=== PATIENT | female | born 1960 | race African-American/Black ===

== ENCOUNTER 2017-07-10 19:04 | Inpatient (IN) ==
[2017-07-10] MEDS ORDERED: FUROSEMIDE 40 MG/4 ML VIAL IV STA (19:41)
[2017-07-10 20:06] LABS: Basophils # 0.1 10*3/uL (0.0-0.2); Basophils % 0.8 % (0.0-0.8); Eosinophils # 0.1 10*3/uL (0.0-0.87); Eosinophils % 1.9 % (0.00-10.9); Hematocrit 21.6 VOL% (35.7-47.0); Hemoglobin 7.7 GM/DL (12.0-16.0); Immature Granulocytes % 0.2 %; Immature Granulocytes Absolute 0.01 #; Lymphocytes % 47.3 % (21.3-54.2); Mean Corpuscular HGB Conc 35.6 GM/DL (32-36); Mean Corpuscular Hemoglobin 29 PG (27-34); Mean Corpuscular Volume 81.2 FL (87-102); Monocytes # 0.6 10*3/uL (0.11-0.8); Monocytes % 9.9 % (1.7-12.7); NRBC # 0.02 10*3/uL; Neutrophils # 2.6 10*3/uL (1.4-7.4); Neutrophils % 39.9 % (38.7-73.9); Red Blood Count 2.66 MC/CUMM (3.8-5.5); Red Cell Distribution Width 21.9 % (9.3-17.3); White Blood Count 6.4 T/CUMM (4-12)
[2017-07-10 20:17] LABS: Platelet Count 86 T/CUMM (130-400)
[2017-07-10 20:21] LABS: Ammonia 54 UMOL/L (11-32)
[2017-07-10 20:23] LABS: Alanine Aminotransferase 44 U/L (13-56); Albumin 2.7 G/DL (3.4-5.0); Alkaline Phosphatase 163 U/L (45-117); Aspartate Amino Transferase 96 U/L (0-37); Blood Urea Nitrogen 19 MG/DL (7-18); Calcium 7.5 MG/DL (8.5-10.1); Glucose 80 MG/DL (74-106); Osmolality,Calculated 281.3 MOS/KG (273-304); Potassium 3.5 MMOL/L (3.5-5.1); Sodium 141 MMOL/L (136-145); Total Protein 6.8 G/DL (6.4-8.3); Troponin I Only < 0.015 NG/ML (0.00-0.045)
[2017-07-10 20:31] LABS: Anisocytosis 3+; Hypochromasia 2+; Macrocytosis 2+; Microcytosis 1+; Platelet Estimate Decreased; Polychromasia Few
[2017-07-10 20:32] LABS: Acanthocytes Few; Elliptocytes 1+; Ovalocytes 2+; Target Cells 3+
[2017-07-10] MEDS ORDERED: FUROSEMIDE 100 MG/10 ML VIAL ONE (20:54)
[2017-07-10] MEDS ORDERED: ALBUTEROL 2.5 MG/3 ML NEB RESP TX PRN (22:06)
[2017-07-10 22:27] LABS: % Iron Saturation 90.4 % (18-50)
[2017-07-10 23:14] LABS: PT Patient Result 20.7 SECS
[2017-07-10 23:38] LABS: Apearance,Urine Clear (Clear); Barbiturates Screen,Urine Negative (Negative); Benzodiazepines Screen,Urine Negative (Negative); Cannabinoid Screen,Urine Negative (Negative); Opiate Screen,Urine Negative (Negative); Phencyclidine Screen,Urine Negative (Negative); Urine Color Yellow (Yellow)
[2017-07-10 23:39] LABS: Bilirubin,Urine Negative (Negative); Glucose,Urine (UA) Negative (Negative); Ketones,Urine Negative (Negative); Nitrite,Urine Negative (Negative); Protein,Urine Negative; Urine Specific Gravity 1.005 (1.001-1.035)
[2017-07-10 23:40] LABS: Blood, Urine Trace mg/dL (Negative); Urine Urobilinogen 0.2 EU/DL (0.2-1.0)
[2017-07-10 23:41] LABS: Squamous Epithelial Cell,Urine Few /HPF (0-10)
[2017-07-11 05:59] LABS: Basophils # 0.1 10*3/uL (0.0-0.2); Basophils % 0.8 % (0.0-0.8); Eosinophils # 0.1 10*3/uL (0.0-0.87); Eosinophils % 2.2 % (0.00-10.9); Hematocrit 18.4 VOL% (35.7-47.0); Hemoglobin 6.8 GM/DL (12.0-16.0); Immature Granulocytes % 0.2 %; Immature Granulocytes Absolute 0.01 #; Lymphocytes # 3.2 10*3/uL (1.4-4.0); Lymphocytes % 54.1 % (21.3-54.2); Mean Corpuscular Hemoglobin 29 PG (27-34); Mean Corpuscular Volume 79.3 FL (87-102); Monocytes # 0.6 10*3/uL (0.11-0.8); Monocytes % 10.4 % (1.7-12.7); Neutrophils # 1.9 10*3/uL (1.4-7.4); Neutrophils % 32.3 % (38.7-73.9); Platelet Count 66 T/CUMM (130-400); Red Blood Count 2.32 MC/CUMM (3.8-5.5); Red Cell Distribution Width 21.8 % (9.3-17.3)
[2017-07-11 06:22] LABS: Albumin 2.4 G/DL (3.4-5.0); Bilirubin,Total 5.4 MG/DL (0.2-1.0); Calcium 7.9 MG/DL (8.5-10.1); Osmolality,Calculated 283.1 MOS/KG (273-304); Potassium 3.6 MMOL/L (3.5-5.1)
[2017-07-11 07:11] LABS: Eosinophils 2 % (0-10); Lymphocytes 38 % (20-55); Segmented Neutrophils 53 % (50-85); Total Cells Counted 100
[2017-07-11 07:12] LABS: Burr Cells Slight; Elliptocytes Few; Giant Platelets Few; Hypochromasia 1+; Platelet Estimate Decreased; Target Cells Few
[2017-07-11] MEDS ORDERED: LACTULOSE 160 GM/240 ML BOTTLE PO SCH (09:00)
[2017-07-11] MEDS ORDERED: SODIUM CHLORIDE 0.9% 1,000 ML IV PRN (09:23)
[2017-07-11] MEDS: BUMETANIDE 1 MG/4 ML VIAL IV SCH ×2 (13:39→20:51)
[2017-07-11] MEDS: hydrALAZINE 25 MG TABLET PO SCH ×3 (13:39→20:36)
[2017-07-11] MEDS: LACTULOSE 20 GM/30 ML UDCUP PO SCH ×3 (13:40→20:52)
[2017-07-11] MEDS: FOLIC ACID 1 MG TABLET PO SCH (13:40)
[2017-07-11] MEDS: FERROUS SULFATE 325 MG TABLET PO SCH (13:40)
[2017-07-11] MEDS: FUROSEMIDE 40 MG TABLET PO SCH (13:40)
[2017-07-11] MEDS: PANTOPRAZOLE 40 MG TABLET PO SCH ×2 (13:40→20:52)
[2017-07-11] MEDS: SPIRONOLACTONE 25 MG TABLET PO SCH (20:52)
[2017-07-11] MEDS ORDERED: SPIRONOLACTONE 25 MG TABLET PO SCH (21:00)
[2017-07-12 06:08] LABS: Basophils % 0.6 % (0.0-0.8); Eosinophils # 0.2 10*3/uL (0.0-0.87); Eosinophils % 2.4 % (0.00-10.9); Hematocrit 25.1 VOL% (35.7-47.0); Hemoglobin 8.9 GM/DL (12.0-16.0); Immature Granulocytes % 0.5 %; Immature Granulocytes Absolute 0.03 #; Lymphocytes # 3.5 10*3/uL (1.4-4.0); Lymphocytes % 52.8 % (21.3-54.2); Mean Corpuscular HGB Conc 35.5 GM/DL (32-36); Mean Corpuscular Hemoglobin 29 PG (27-34); Mean Corpuscular Volume 80.4 FL (87-102); Monocytes # 0.6 10*3/uL (0.11-0.8); Monocytes % 9.1 % (1.7-12.7); Neutrophils # 2.3 10*3/uL (1.4-7.4); Neutrophils % 34.6 % (38.7-73.9); Red Blood Count 3.12 MC/CUMM (3.8-5.5); Red Cell Distribution Width 20.7 % (9.3-17.3); White Blood Count 6.6 T/CUMM (4-12)
[2017-07-12 06:16] LABS: Platelet Count 62 T/CUMM (130-400)
[2017-07-12 06:31] LABS: Eosinophils 2 % (0-10); Hypochromasia 1+; Lymphocytes 56 % (20-55); Microcytosis 1+; Segmented Neutrophils 34 % (50-85); Total Cells Counted 100
[2017-07-12 06:32] LABS: Acanthocytes Few; Ovalocytes Few; Target Cells 1+
[2017-07-12 06:33] LABS: Platelet Estimate Decreased
[2017-07-12 06:41] LABS: Potassium 3.3 MMOL/L (3.5-5.1)
[2017-07-12] MEDS: FOLIC ACID 1 MG TABLET PO SCH (09:47)
[2017-07-12] MEDS: FERROUS SULFATE 325 MG TABLET PO SCH (09:47)
[2017-07-12] MEDS: LACTULOSE 20 GM/30 ML UDCUP PO SCH ×3 (09:47→22:31)
[2017-07-12] MEDS: FUROSEMIDE 40 MG TABLET PO SCH (09:47)
[2017-07-12] MEDS: PANTOPRAZOLE 40 MG TABLET PO SCH ×2 (09:47→22:31)
[2017-07-12] MEDS: hydrALAZINE 25 MG TABLET PO SCH ×3 (09:47→22:31)
[2017-07-12] MEDS: BUMETANIDE 1 MG/4 ML VIAL IV SCH ×2 (09:48→22:32)
[2017-07-12] MEDS: SPIRONOLACTONE 25 MG TABLET PO SCH ×2 (10:14→22:31)
[2017-07-12] MEDS ORDERED: POTASSIUM CHLORIDE 20 MEQ TABLET PO ONE (11:00)
[2017-07-13 05:56] LABS: Basophils # 0.1 10*3/uL (0.0-0.2); Basophils % 0.8 % (0.0-0.8); Eosinophils # 0.2 10*3/uL (0.0-0.87); Eosinophils % 2.2 % (0.00-10.9); Hematocrit 23.6 VOL% (35.7-47.0); Hemoglobin 8.7 GM/DL (12.0-16.0); Immature Granulocytes % 0.4 %; Immature Granulocytes Absolute 0.03 #; Lymphocytes # 3.4 10*3/uL (1.4-4.0); Mean Corpuscular HGB Conc 36.9 GM/DL (32-36); Mean Corpuscular Hemoglobin 29 PG (27-34); Mean Corpuscular Volume 79.7 FL (87-102); Monocytes # 0.7 10*3/uL (0.11-0.8); Monocytes % 9.8 % (1.7-12.7); Neutrophils % 40.8 % (38.7-73.9); Red Blood Count 2.96 MC/CUMM (3.8-5.5); Red Cell Distribution Width 20.4 % (9.3-17.3); White Blood Count 7.4 T/CUMM (4-12)
[2017-07-13 05:57] LABS: Platelet Count 58 T/CUMM (130-400)
[2017-07-13 06:12] LABS: Target Cells 1+
[2017-07-13 06:13] LABS: Acanthocytes Few; Anisocytosis 1+; Hypochromasia 1+; Microcytosis 1+; Platelet Estimate Decreased; Spherocytes Slight
[2017-07-13 06:14] LABS: Ovalocytes Slight; Tear Drop Cells Slight
[2017-07-13 06:26] LABS: Albumin 2.2 G/DL (3.4-5.0); Bilirubin,Total 4.6 MG/DL (0.2-1.0); Calcium 7.9 MG/DL (8.5-10.1); Osmolality,Calculated 280.3 MOS/KG (273-304); Potassium 3.3 MMOL/L (3.5-5.1); Total Protein 6.5 G/DL (6.4-8.3)
[2017-07-13] MEDS: FERROUS SULFATE 325 MG TABLET PO SCH (09:00)
[2017-07-13] MEDS: LACTULOSE 20 GM/30 ML UDCUP PO SCH ×3 (09:00→21:59)
[2017-07-13] MEDS: BUMETANIDE 1 MG/4 ML VIAL IV SCH ×2 (09:01→21:59)
[2017-07-13] MEDS: PANTOPRAZOLE 40 MG TABLET PO SCH ×2 (09:01→21:59)
[2017-07-13] MEDS: FUROSEMIDE 40 MG TABLET PO SCH (09:01)
[2017-07-13] MEDS: SPIRONOLACTONE 25 MG TABLET PO SCH ×2 (09:01→21:59)
[2017-07-13] MEDS: FOLIC ACID 1 MG TABLET PO SCH (09:01)
[2017-07-13] MEDS: hydrALAZINE 25 MG TABLET PO SCH ×3 (09:01→21:59)
[2017-07-14 06:28] LABS: Basophils % 0.6 % (0.0-0.8); Eosinophils # 0.2 10*3/uL (0.0-0.87); Eosinophils % 2.6 % (0.00-10.9); Hematocrit 23.7 VOL% (35.7-47.0); Hemoglobin 8.8 GM/DL (12.0-16.0); Immature Granulocytes % 0.2 %; Immature Granulocytes Absolute 0.01 #; Lymphocytes # 3.4 10*3/uL (1.4-4.0); Lymphocytes % 54.2 % (21.3-54.2); Mean Corpuscular HGB Conc 37.1 GM/DL (32-36); Mean Corpuscular Hemoglobin 29 PG (27-34); Mean Corpuscular Volume 78.5 FL (87-102); Monocytes # 0.7 10*3/uL (0.11-0.8); Monocytes % 11.5 % (1.7-12.7); Neutrophils # 1.9 10*3/uL (1.4-7.4); Neutrophils % 30.9 % (38.7-73.9); Platelet Count 89 T/CUMM (130-400); Red Blood Count 3.02 MC/CUMM (3.8-5.5); Red Cell Distribution Width 20.3 % (9.3-17.3); White Blood Count 6.3 T/CUMM (4-12)
[2017-07-14 06:39] LABS: Calcium 7.7 MG/DL (8.5-10.1); Osmolality,Calculated 279.4 MOS/KG (273-304); Potassium 3.9 MMOL/L (3.5-5.1)
[2017-07-14 07:00] LABS: Eosinophils 4 % (0-10); Lymphocytes 41 % (20-55); Platelet Estimate Decreased; Segmented Neutrophils 50 % (50-85); Total Cells Counted 100
[2017-07-14 07:01] LABS: Burr Cells Slight; Giant Platelets Few; Hypochromasia 1+; Microcytosis Slight; Ovalocytes Slight; Target Cells Few
[2017-07-14] MEDS: LACTULOSE 20 GM/30 ML UDCUP PO SCH (09:00)
[2017-07-14] MEDS: BUMETANIDE 1 MG/4 ML VIAL IV SCH (09:00)
[2017-07-14] MEDS: FOLIC ACID 1 MG TABLET PO SCH (09:00)
[2017-07-14] MEDS: SPIRONOLACTONE 25 MG TABLET PO SCH (09:00)
[2017-07-14] MEDS: FERROUS SULFATE 325 MG TABLET PO SCH (09:00)
[2017-07-14] MEDS: FUROSEMIDE 40 MG TABLET PO SCH (09:00)
[2017-07-14] MEDS: hydrALAZINE 25 MG TABLET PO SCH (09:00)
[2017-07-14] MEDS: PANTOPRAZOLE 40 MG TABLET PO SCH (09:00)
[2017-07-14] MEDS ORDERED: PROPOFOL 200 MG/20 ML VIAL IV ONE (11:45)
[2017-07-14] MEDS ORDERED: LIDOCAINE 2% 5 ML VIAL ONE (11:45)
[2017-07-14 12:44] VITALS: BP 113/64
== END 2017-07-14 14:21 | disposition home or self-care (01) ==
LOC: EDUNIT# → EDBD → N.EDINP 19:04 → N.ED 19:04 → SUATTDRO 21:38 → N.2E 22:03
PROVIDERS: ADMIT Hospitalist; ATTEND Family Medicine

== ENCOUNTER 2017-07-17 04:07 | Inpatient (IN) ==
[2017-07-17] MEDS ORDERED: methylPREDNISolone SOD SUC 125 MG/2 ML VIAL IV STA (04:26)
[2017-07-17] MEDS ORDERED: ALBUTEROL/IPRATROPIUM 3 ML NEB RESP TX STA (04:26)
[2017-07-17] MEDS ORDERED: ASPIRIN 325 MG TABLET PO STA (04:28)
[2017-07-17] MEDS ORDERED: methylPREDNISolone SOD SUC 125 MG/2 ML VIAL ONE (04:32)
[2017-07-17 05:13] LABS: Basophils % 0.6 % (0.0-0.8); Eosinophils % 0.1 % (0.00-10.9); Hematocrit 24.9 VOL% (35.7-47.0); Hemoglobin 9.2 GM/DL (12.0-16.0); Immature Granulocytes Absolute 0.07 #; Lymphocytes % 28.9 % (21.3-54.2); Mean Corpuscular HGB Conc 36.9 GM/DL (32-36); Mean Corpuscular Hemoglobin 29 PG (27-34); Monocytes # 1.4 10*3/uL (0.11-0.8); Monocytes % 20.8 % (1.7-12.7); NRBC # 0.02 10*3/uL; Neutrophils # 3.3 10*3/uL (1.4-7.4); Neutrophils % 48.6 % (38.7-73.9); Platelet Count 83 T/CUMM (130-400); Red Blood Count 3.15 MC/CUMM (3.8-5.5); Red Cell Distribution Width 20.4 % (9.3-17.3); White Blood Count 6.8 T/CUMM (4-12)
[2017-07-17 05:49] LABS: Albumin 2.6 G/DL (3.4-5.0); Bilirubin,Total 4.8 MG/DL (0.2-1.0); Calcium 7.7 MG/DL (8.5-10.1); Osmolality,Calculated 281.4 MOS/KG (273-304); Total Protein 7.5 G/DL (6.4-8.3); Troponin I Only 0.019 NG/ML (0.00-0.045)
[2017-07-17 06:51] LABS: Lymphocytes 22 % (20-55); Platelet Estimate Decreased; Segmented Neutrophils 65 % (50-85); Total Cells Counted 100
[2017-07-17] MEDS: ALBUTEROL/IPRATROPIUM 3 ML NEB RESP TX SCH ×5 (07:05→23:24)
[2017-07-17] MEDS ORDERED: ACETAMINOPHEN 500 MG TABLET ONE (07:14)
[2017-07-17] MEDS ORDERED: ACETAMINOPHEN 500 MG TABLET PO STA (07:19)
[2017-07-17] MEDS: methylPREDNISolone SOD SUC 40 MG/1 ML VIAL IV SCH ×2 (12:22→20:09)
[2017-07-17 16:20] LABS: % Iron Saturation 58.5 % (18-50)
[2017-07-17 16:30] LABS: INR 2.2; Partial Thromboplastin Time 38.4 SECS (0-40)
[2017-07-17] MEDS: OSELTAMIVIR 75 MG CAPSULE PO SCH ×2 (16:33→20:09)
[2017-07-17] MEDS ORDERED: OSELTAMIVIR 30 MG CAPSULE PO SCH (21:00)
[2017-07-18] MEDS: ALBUTEROL/IPRATROPIUM 3 ML NEB RESP TX SCH ×6 (03:24→23:50)
[2017-07-18] MEDS: methylPREDNISolone SOD SUC 40 MG/1 ML VIAL IV SCH ×3 (04:07→20:54)
[2017-07-18 06:17] LABS: Hematocrit 22.3 VOL% (35.7-47.0); Hemoglobin 8.1 GM/DL (12.0-16.0); Immature Granulocytes % 0.4 %; Immature Granulocytes Absolute 0.04 #; Lymphocytes # 1.7 10*3/uL (1.4-4.0); Lymphocytes % 17.8 % (21.3-54.2); Mean Corpuscular HGB Conc 36.3 GM/DL (32-36); Mean Corpuscular Hemoglobin 28 PG (27-34); Monocytes # 0.3 10*3/uL (0.11-0.8); Neutrophils # 7.5 10*3/uL (1.4-7.4); Neutrophils % 78.8 % (38.7-73.9); Platelet Count 85 T/CUMM (130-400); Red Blood Count 2.86 MC/CUMM (3.8-5.5); White Blood Count 9.5 T/CUMM (4-12)
[2017-07-18 06:28] LABS: Calcium 7.2 MG/DL (8.5-10.1); Osmolality,Calculated 282.7 MOS/KG (273-304); Potassium 3.7 MMOL/L (3.5-5.1)
[2017-07-18 06:44] LABS: Band Neutrophils 7 % (0-10); Lymphocytes 24 % (20-55); Microcytosis 1+; Platelet Estimate Decreased; Segmented Neutrophils 67 % (50-85); Total Cells Counted 100
[2017-07-18] MEDS: OSELTAMIVIR 75 MG CAPSULE PO SCH ×2 (09:09→20:53)
[2017-07-18] MEDS: hydrALAZINE 25 MG TABLET PO SCH ×2 (15:36→20:52)
[2017-07-18] MEDS: SPIRONOLACTONE 25 MG TABLET PO SCH (20:52)
[2017-07-18] MEDS: PANTOPRAZOLE 40 MG TABLET PO SCH (20:52)
[2017-07-19] MEDS: ALBUTEROL/IPRATROPIUM 3 ML NEB RESP TX SCH ×3 (04:00→11:00)
[2017-07-19] MEDS: methylPREDNISolone SOD SUC 40 MG/1 ML VIAL IV SCH ×2 (04:09→12:56)
[2017-07-19] MEDS ORDERED: FUROSEMIDE 40 MG TABLET PO SCH (09:00)
[2017-07-19] MEDS ORDERED: FOLIC ACID 1 MG TABLET PO SCH (09:00)
[2017-07-19] MEDS ORDERED: FERROUS SULFATE 325 MG TABLET PO SCH (09:00)
[2017-07-19] MEDS: PANTOPRAZOLE 40 MG TABLET PO SCH (09:04)
[2017-07-19] MEDS: hydrALAZINE 25 MG TABLET PO SCH (09:04)
[2017-07-19] MEDS: SPIRONOLACTONE 25 MG TABLET PO SCH (09:04)
[2017-07-19] MEDS: OSELTAMIVIR 75 MG CAPSULE PO SCH (09:04)
[2017-07-19 12:43] VITALS: BP 122/63
== END 2017-07-19 13:10 | disposition home or self-care (01) | DRG 141 ==
LOC: EDBD → EDUNIT# → N.ED 04:07 → SUATTDRO 06:35 → N.EDINP 06:35 → N.5E 07:25
PROVIDERS: ADMIT Internal Medicine Infectious Disease; ATTEND Internal Medicine Geriatric Medicine

== ENCOUNTER 2017-10-11 16:26 | Inpatient (IN) ==
[2017-10-11] MEDS ORDERED: hydrALAZINE 20 MG/1 ML VIAL IV STA ×2 (18:02→20:50)
[2017-10-11] MEDS ORDERED: MORPHINE 2 MG/1 ML SYRINGE IV STA (18:02)
[2017-10-11] MEDS ORDERED: FUROSEMIDE 40 MG/4 ML VIAL IV STA (18:02)
[2017-10-11] MEDS ORDERED: FUROSEMIDE 40 MG/4 ML VIAL IM STA (18:05)
[2017-10-11 19:35] LABS: Basophils # 0.1 10*3/uL (0.0-0.2); Basophils % 0.7 % (0.0-0.8); Eosinophils # 0.3 10*3/uL (0.0-0.87); Eosinophils % 3.4 % (0.00-10.9); Hematocrit 21.3 VOL% (35.7-47.0); Hemoglobin 7.3 GM/DL (12.0-16.0); Immature Granulocytes % 0.3 %; Immature Granulocytes Absolute 0.03 #; Lymphocytes # 3.9 10*3/uL (1.4-4.0); Lymphocytes % 44.5 % (21.3-54.2); Mean Corpuscular HGB Conc 34.3 GM/DL (32-36); Mean Corpuscular Hemoglobin 25 PG (27-34); Mean Corpuscular Volume 74.2 FL (87-102); Monocytes % 11.2 % (1.7-12.7); Neutrophils # 3.5 10*3/uL (1.4-7.4); Neutrophils % 39.9 % (38.7-73.9); Platelet Count 136 T/CUMM (130-400); Red Blood Count 2.87 MC/CUMM (3.8-5.5); Red Cell Distribution Width 24.3 % (9.3-17.3); White Blood Count 8.9 T/CUMM (4-12)
[2017-10-11] MEDS ORDERED: MORPHINE 4 MG/1 ML VIAL ONE (19:43)
[2017-10-11] MEDS ORDERED: FUROSEMIDE 40 MG/4 ML VIAL ONE (19:43)
[2017-10-11 19:59] LABS: Alanine Aminotransferase < 9 U/L (13-56); Albumin 2.2 G/DL (3.4-5.0); Alkaline Phosphatase 215 U/L (45-117); Aspartate Amino Transferase 30 U/L (0-37); Blood Urea Nitrogen 13 MG/DL (7-18); Calcium 7.4 MG/DL (8.5-10.1); Glucose 73 MG/DL (74-106); Osmolality,Calculated 279.3 MOS/KG (273-304); Potassium 3.6 MMOL/L (3.5-5.1); Sodium 141 MMOL/L (136-145)
[2017-10-11 20:01] LABS: Apearance,Urine Slightly Hazy (Clear); Bacteria,Urine Moderate /HPF (Few); Bilirubin,Urine Negative (Negative); Blood, Urine Large mg/dL (Negative); Glucose,Urine (UA) Negative (Negative); Hyaline Casts,Urine 2 /LPF (0-3); Ketones,Urine Negative (Negative); Mucus,Urine Occasional /LPF (Occasional); Nitrite,Urine Negative (Negative); Protein,Urine 30 MG/DL; RBC,Urine 118 /HPF (0-4); Squamous Epithelial Cell,Urine Occasional /HPF (0-10); Urine Color Yellow (Yellow); Urine Urobilinogen < 2.0 EU/DL (0.2-1.0); WBC,Urine 76 /HPF (0-6)
[2017-10-11] MEDS ORDERED: cefTRIAXone 1,000 MG in SODIUM CHLORIDE 0.9% 100 ML IV STA (20:13)
[2017-10-11] MEDS ORDERED: cefTRIAXone 1,000 MG VIAL ONE (20:35)
[2017-10-11] MEDS ORDERED: SODIUM CHLORIDE 0.9% 100 ML IV ONE (20:39)
[2017-10-11] MEDS ORDERED: hydrALAZINE 20 MG/1 ML VIAL ONE (21:01)
[2017-10-11] MEDS ORDERED: SODIUM CHLORIDE 0.9% 1,000 ML IV PRN (23:58)
[2017-10-12] MEDS ORDERED: ONDANSETRON 4 MG/2 ML VIAL IV PRN (00:03)
[2017-10-12] MEDS ORDERED: ACETAMINOPHEN 325 MG TABLET PO PRN (00:03)
[2017-10-12] MEDS ORDERED: ALBUTEROL 2.5 MG/3 ML NEB RESP TX PRN (00:16)
[2017-10-12] MEDS ORDERED: hydrALAZINE 20 MG/1 ML VIAL IV PRN (00:17)
[2017-10-12] MEDS ORDERED: PANTOPRAZOLE 40 MG TABLET PO SCH (00:30)
[2017-10-12 01:38] LABS: Basophils # 0.1 10*3/uL (0.0-0.2); Basophils % 0.5 % (0.0-0.8); Eosinophils # 0.3 10*3/uL (0.0-0.87); Eosinophils % 3.3 % (0.00-10.9); Hematocrit 19.6 VOL% (35.7-47.0); Hemoglobin 6.9 GM/DL (12.0-16.0); Immature Granulocytes % 0.1 %; Immature Granulocytes Absolute 0.01 #; Lymphocytes # 4.7 10*3/uL (1.4-4.0); Lymphocytes % 50.4 % (21.3-54.2); Mean Corpuscular HGB Conc 35.2 GM/DL (32-36); Mean Corpuscular Hemoglobin 25 PG (27-34); Mean Corpuscular Volume 71.8 FL (87-102); Monocytes % 10.8 % (1.7-12.7); NRBC # 0.02 10*3/uL; Neutrophils # 3.3 10*3/uL (1.4-7.4); Neutrophils % 34.9 % (38.7-73.9); Platelet Count 112 T/CUMM (130-400); Red Blood Count 2.73 MC/CUMM (3.8-5.5); Red Cell Distribution Width 23.9 % (9.3-17.3); White Blood Count 9.4 T/CUMM (4-12)
[2017-10-12 02:06] LABS: Alanine Aminotransferase < 9 U/L (13-56); Alkaline Phosphatase 169 U/L (45-117); Aspartate Amino Transferase 26 U/L (0-37); Blood Urea Nitrogen 15 MG/DL (7-18); Calcium 7.6 MG/DL (8.5-10.1); Glucose 71 MG/DL (74-106); Osmolality,Calculated 281.1 MOS/KG (273-304); Potassium 3.5 MMOL/L (3.5-5.1); Sodium 142 MMOL/L (136-145); Total Protein 7.4 G/DL (6.4-8.3)
[2017-10-12 02:31] LABS: Eosinophils 4 % (0-10); Lymphocytes 38 % (20-55); Segmented Neutrophils 49 % (50-85); Total Cells Counted 100
[2017-10-12 02:32] LABS: Hypochromasia 2+; Microcytosis 1+; Platelet Estimate Adequate; Polychromasia Few; Target Cells 2+
[2017-10-12 02:33] LABS: Tear Drop Cells Few
[2017-10-12 02:37] LABS: Schistocytes Few
[2017-10-12] MEDS ORDERED: MAGNESIUM SULF RIDER 4 GM in PREMIX 1 EACH IV PRN (08:00)
[2017-10-12] MEDS ORDERED: MAGNESIUM SULF RIDER 2 GM in PREMIX 1 EACH IV PRN (08:00)
[2017-10-12] MEDS: PANTOPRAZOLE 40 MG TABLET PO SCH (08:54)
[2017-10-12 10:51] LABS: Hematocrit 27.1 VOL% (35.7-47.0)
[2017-10-12 10:52] LABS: Hemoglobin 9.4 GM/DL (12.0-16.0)
[2017-10-12] MEDS ORDERED: PHYTONADIONE 10 MG/1 ML AMP SUBCUT ONE (12:11)
[2017-10-12 13:37] LABS: INR 1.4; PT Patient Result 14.7 SECS
[2017-10-12 17:46] LABS: Hematocrit 26.1 VOL% (35.7-47.0); Hemoglobin 8.9 GM/DL (12.0-16.0)
[2017-10-12] MEDS ORDERED: cefTRIAXone 1,000 MG in SYRINGE 1 EACH IV SCH (20:00)
[2017-10-13 09:08] LABS: Basophils # 0.1 10*3/uL (0.0-0.2); Eosinophils # 0.3 10*3/uL (0.0-0.87); Eosinophils % 4.3 % (0.00-10.9); Hematocrit 26.3 VOL% (35.7-47.0); Hemoglobin 9.1 GM/DL (12.0-16.0); Immature Granulocytes % 0.5 %; Immature Granulocytes Absolute 0.04 #; Lymphocytes # 3.5 10*3/uL (1.4-4.0); Mean Corpuscular HGB Conc 34.6 GM/DL (32-36); Mean Corpuscular Hemoglobin 27 PG (27-34); Mean Corpuscular Volume 76.7 FL (87-102); Monocytes % 11.9 % (1.7-12.7); Neutrophils % 38.3 % (38.7-73.9); Platelet Count 107 T/CUMM (130-400); Red Blood Count 3.43 MC/CUMM (3.8-5.5); Red Cell Distribution Width 22.2 % (9.3-17.3)
[2017-10-13] MEDS: PANTOPRAZOLE 40 MG TABLET PO SCH (09:33)
[2017-10-13 09:40] LABS: Calcium 7.8 MG/DL (8.5-10.1); Osmolality,Calculated 280.3 MOS/KG (273-304); Potassium 3.5 MMOL/L (3.5-5.1)
[2017-10-13 09:52] LABS: Eosinophils 5 % (0-10); Hypochromasia 1+; Lymphocytes 32 % (20-55); Microcytosis Slight; Ovalocytes Slight; Platelet Estimate Decreased; Polychromasia Few; Segmented Neutrophils 56 % (50-85); Total Cells Counted 100
[2017-10-13 09:53] LABS: Burr Cells Slight
[2017-10-13 11:25] VITALS: BP 163/96
== END 2017-10-13 12:28 | disposition home or self-care (01) | DRG 253 ==
LOC: N.ED 16:26 → N.EDINP 22:01 → N.TELES 22:43

== ENCOUNTER 2018-01-16 09:03 | Inpatient (IN) ==
[2018-01-16] MEDS ORDERED: SODIUM CHLORIDE 0.9% 1,000 ML IV STA (09:31)
[2018-01-16] MEDS ORDERED: ONDANSETRON 4 MG/2 ML VIAL IV STA (09:31)
[2018-01-16] MEDS ORDERED: MORPHINE 4 MG/1 ML VIAL IV STA ×2 (09:31→11:11)
[2018-01-16 10:02] LABS: Basophils # 0.1 10*3/uL (0.0-0.2); Basophils % 0.7 % (0.0-0.8); Eosinophils # 0.3 10*3/uL (0.0-0.87); Eosinophils % 3.8 % (0.00-10.9); Hematocrit 32.1 VOL% (35.7-47.0); Hemoglobin 10.6 GM/DL (12.0-16.0); Immature Granulocytes % 0.3 %; Immature Granulocytes Absolute 0.03 #; Lymphocytes # 2.6 10*3/uL (1.4-4.0); Lymphocytes % 30.4 % (21.3-54.2); Mean Corpuscular Hemoglobin 26 PG (27-34); Mean Corpuscular Volume 78.9 FL (87-102); Mean Platelet Volume 10.5 FL (9.6-12.0); Monocytes % 11.7 % (1.7-12.7); Neutrophils # 4.6 10*3/uL (1.4-7.4); Neutrophils % 53.1 % (38.7-73.9); Platelet Count 145 T/CUMM (130-400); Red Blood Count 4.07 MC/CUMM (3.8-5.5); Red Cell Distribution Width 17.3 % (9.3-17.3); White Blood Count 8.7 T/CUMM (4-12)
[2018-01-16 10:53] LABS: Albumin 2.7 G/DL (3.4-5.0); Bilirubin,Total 0.4 MG/DL (0.2-1.0); Calcium 8.1 MG/DL (8.5-10.1); Osmolality,Calculated 287.5 MOS/KG (273-304); Potassium 5.1 MMOL/L (3.5-5.1); Total Protein 7.8 G/DL (6.4-8.3)
[2018-01-16] MEDS ORDERED: DOCUSATE SODIUM 100 MG CAPSULE PO PRN (11:58)
[2018-01-16] MEDS ORDERED: ONDANSETRON 4 MG/2 ML VIAL IV PRN (11:58)
[2018-01-16] MEDS ORDERED: ACETAMINOPHEN 325 MG TABLET PO PRN (11:58)
[2018-01-16] MEDS ORDERED: LACTULOSE 20 GM/30 ML UDCUP PO PRN (13:30)
[2018-01-16] MEDS ORDERED: NICOTINE 21 MG/24 HR PATCH TRANSDERM PRN (13:30)
[2018-01-16] MEDS: PANTOPRAZOLE 40 MG VIAL IV SCH (13:33)
[2018-01-16] MEDS: SODIUM CHLORIDE 0.9% 1,000 ML IV SCH ×2 (13:33→20:55)
[2018-01-16] MEDS: MORPHINE 4 MG/1 ML VIAL IV PRN ×3 (14:37→22:13)
[2018-01-16] MEDS: amLODIPine 5 MG TABLET PO SCH (20:54)
[2018-01-16] MEDS ORDERED: SPIRONOLACTONE 50 MG TABLET PO SCH (21:00)
[2018-01-17] MEDS: MORPHINE 4 MG/1 ML VIAL IV PRN ×3 (02:56→23:17)
[2018-01-17] MEDS: SODIUM CHLORIDE 0.9% 1,000 ML IV SCH ×2 (05:39→15:01)
[2018-01-17 07:55] LABS: Basophils # 0.1 10*3/uL (0.0-0.2); Basophils % 0.7 % (0.0-0.8); Eosinophils # 0.5 10*3/uL (0.0-0.87); Eosinophils % 6.3 % (0.00-10.9); Hemoglobin 9.7 GM/DL (12.0-16.0); Immature Granulocytes % 0.1 %; Immature Granulocytes Absolute 0.01 #; Mean Corpuscular HGB Conc 33.4 GM/DL (32-36); Mean Corpuscular Hemoglobin 27 PG (27-34); Mean Corpuscular Volume 79.7 FL (87-102); Mean Platelet Volume 10.4 FL (9.6-12.0); Monocytes # 0.8 10*3/uL (0.11-0.8); Monocytes % 10.6 % (1.7-12.7); Neutrophils # 3.3 10*3/uL (1.4-7.4); Neutrophils % 43.3 % (38.7-73.9); Platelet Count 136 T/CUMM (130-400); Red Blood Count 3.64 MC/CUMM (3.8-5.5); Red Cell Distribution Width 17.5 % (9.3-17.3); White Blood Count 7.6 T/CUMM (4-12)
[2018-01-17 08:30] LABS: Risk Ratio 4.53; VLDL CHOLESTEROL 24.2 MG/DL
[2018-01-17 08:32] LABS: Calcium 8.3 MG/DL (8.5-10.1); Osmolality,Calculated 287.3 MOS/KG (273-304); Potassium 4.5 MMOL/L (3.5-5.1); Thyroid Stimulating Hormone 2.97 uIU/ml (0.358-3.74)
[2018-01-17] MEDS: POTASSIUM CHLORIDE 8 MEQ CAPSULE PO SCH (08:38)
[2018-01-17] MEDS: hydrALAZINE 25 MG TABLET PO SCH (08:38)
[2018-01-17] MEDS: FERROUS SULFATE 325 MG TABLET PO SCH (08:38)
[2018-01-17] MEDS: PANTOPRAZOLE 40 MG VIAL IV SCH (08:38)
[2018-01-17] MEDS: amLODIPine 5 MG TABLET PO SCH ×2 (08:38→20:47)
[2018-01-17] MEDS ORDERED: VALSARTAN/HCTZ 160-12.5 MG TABLET PO SCH (09:00)
[2018-01-17] MEDS ORDERED: FUROSEMIDE 40 MG TABLET PO SCH (09:00)
[2018-01-17 10:08] LABS: Apearance,Urine CLEAR (Clear); Bilirubin,Urine Negative (Negative); Glucose,Urine (UA) Negative (Negative); Ketones,Urine Negative (Negative); Nitrite,Urine Negative (Negative); Protein,Urine 30 MG/DL; Urine Color Yellow (Yellow); Urine Specific Gravity 1.011 (1.001-1.035)
[2018-01-17 10:09] LABS: Bacteria,Urine Occasional /HPF (Few); Blood, Urine Moderate mg/dL (Negative); Mucus,Urine Occasional /LPF (Occasional); RBC,Urine 8 /HPF (0-4); Squamous Epithelial Cell,Urine Occasional /HPF (0-10); Urine Urobilinogen < 2.0 EU/DL (0.2-1.0); WBC,Urine 7 /HPF (0-6)
[2018-01-17] MEDS ORDERED: PIPERACILLIN/TAZOBACTAM 3,375 MG in SODIUM CHLORIDE 0.9% 100 ML IV SCH (10:30)
[2018-01-17] MEDS ORDERED: CIPROFLOXACIN INJ 400 MG in PREMIX 1 EACH IV SCH (11:00)
[2018-01-17] MEDS: methylPREDNISolone SOD SUC 125 MG/2 ML VIAL IV SCH ×2 (11:38→20:46)
[2018-01-17] MEDS: CIPROFLOXACIN INJ 400 MG in PREMIX 1 EACH IV SCH ×2 (11:38→20:43)
[2018-01-17 11:54] LABS: Hepatitis A Ab IgM Quant 0.15 Index; Hepatitis A Ab IgM Result Negative (Negative); Hepatitis B Core IgM Quant 0.29 Index; Hepatitis B Core IgM Result Negative (Negative); Hepatitis B Surface Ag Result Negative (Negative); Hepatitis C Virus Ab Quant > 11.00 Index; Hepatitis C Virus Ab Result Positive (Negative)
[2018-01-17] MEDS ORDERED: SKIN HEALING OINT (AQUAPHOR) 50 GM TUBE TOP PRN (13:23)
[2018-01-17] MEDS: ALBUTEROL/IPRATROPIUM 3 ML NEB RESP TX SCH ×2 (16:04→19:19)
[2018-01-17] MEDS ORDERED: MONTELUKAST 10 MG TABLET PO SCH (21:00)
[2018-01-18] MEDS: ALBUTEROL/IPRATROPIUM 3 ML NEB RESP TX SCH ×2 (01:24→06:50)
[2018-01-18] MEDS: SODIUM CHLORIDE 0.9% 1,000 ML IV SCH (03:29)
[2018-01-18] MEDS: MORPHINE 4 MG/1 ML VIAL IV PRN (03:36)
[2018-01-18] MEDS: methylPREDNISolone SOD SUC 125 MG/2 ML VIAL IV SCH (04:37)
[2018-01-18 04:56] LABS: Basophils % 0.1 % (0.0-0.8); Hematocrit 30.1 VOL% (35.7-47.0); Immature Granulocytes % 0.4 %; Immature Granulocytes Absolute 0.03 #; Lymphocytes # 1.3 10*3/uL (1.4-4.0); Lymphocytes % 16.3 % (21.3-54.2); Mean Corpuscular HGB Conc 33.2 GM/DL (32-36); Mean Corpuscular Hemoglobin 26 PG (27-34); Mean Corpuscular Volume 77.8 FL (87-102); Monocytes # 0.1 10*3/uL (0.11-0.8); Monocytes % 1.8 % (1.7-12.7); Neutrophils # 6.5 10*3/uL (1.4-7.4); Neutrophils % 81.4 % (38.7-73.9); Platelet Count 142 T/CUMM (130-400); Red Blood Count 3.87 MC/CUMM (3.8-5.5); Red Cell Distribution Width 17.1 % (9.3-17.3); White Blood Count 7.9 T/CUMM (4-12)
[2018-01-18 05:21] LABS: Albumin 2.3 G/DL (3.4-5.0); Bilirubin,Direct 0.21 MG/DL (0.0-0.20); Bilirubin,Indirect 0.4 MG/DL (0.0-1.0); Bilirubin,Total 0.6 MG/DL (0.2-1.0); Calcium 8.6 MG/DL (8.5-10.1); Osmolality,Calculated 290.3 MOS/KG (273-304); Potassium 4.6 MMOL/L (3.5-5.1); Total Protein 7.2 G/DL (6.4-8.3)
[2018-01-18 07:44] VITALS: BP 153/80
[2018-01-18] MEDS: FERROUS SULFATE 325 MG TABLET PO SCH (08:47)
[2018-01-18] MEDS: PANTOPRAZOLE 40 MG VIAL IV SCH (08:47)
[2018-01-18] MEDS: POTASSIUM CHLORIDE 8 MEQ CAPSULE PO SCH (08:47)
[2018-01-18] MEDS: amLODIPine 5 MG TABLET PO SCH (08:47)
[2018-01-18] MEDS: hydrALAZINE 25 MG TABLET PO SCH (08:47)
[2018-01-18] MEDS: CIPROFLOXACIN INJ 400 MG in PREMIX 1 EACH IV SCH (08:48)
[2018-01-18] MEDS ORDERED: MAGNESIUM OXIDE 400 MG TABLET PO ONE (10:00)
== END 2018-01-18 10:10 | disposition home or self-care (01) | DRG 249 ==
LOC: N.ED 09:03 → N.EDINP 11:28 → N.2E 13:19
PROVIDERS: ADMIT Internal Medicine; ATTEND Internal Medicine

== ENCOUNTER 2019-08-28 01:13 | Observation (INO) ==
[2019-08-28] MEDS ORDERED: SODIUM CHLORIDE 0.9% 1,000 ML IV STA (01:43)
[2019-08-28] MEDS ORDERED: ALBUTEROL/IPRATROPIUM 3 ML NEB RESP TX STA (01:43)
[2019-08-28] MEDS ORDERED: methylPREDNISolone SOD SUC 125 MG/2 ML VIAL IV STA (01:43)
[2019-08-28 02:15] LABS: ABG Base Excess -5.8 MMOL/L (-2.5-2.5); ABG HCO3 19.6 MMOL/L (20-26); ABG Oxygen Saturation 95.2 % (95-100); ABG PCO2 56.7 MM HG (35-48); ABG PH 7.216 (7.35-7.45); ABG PO2 79.8 MM HG (80-95); ABG TCO2 20.8 MMOL/L (23-27); Allen Test Positive
[2019-08-28 03:04] LABS: Apearance,Urine CLEAR (Clear); Bacteria,Urine Occasional /HPF (Few); Bilirubin,Urine Negative (Negative); Blood, Urine Negative (Negative); Glucose,Urine (UA) Negative (Negative); Ketones,Urine Negative (Negative); Mucus,Urine Occasional /LPF (Occasional); Nitrite,Urine Negative (Negative); Protein,Urine 30 MG/DL; Squamous Epithelial Cell,Urine Occasional /HPF (0-10); Urine Color Yellow (Yellow); Urine Specific Gravity 1.011 (1.001-1.035); Urine Urobilinogen < 2.0 EU/DL (0.2-1.0); WBC,Urine 1 /HPF (0-6)
[2019-08-28 03:13] LABS: Barbiturates Screen,Urine Negative (Negative); Benzodiazepines Screen,Urine Negative (Negative); Cannabinoid Screen,Urine Negative (Negative); Opiate Screen,Urine Negative (Negative); Phencyclidine Screen,Urine Negative (Negative)
[2019-08-28 03:15] LABS: Alanine Aminotransferase 17 U/L (13-56); Albumin 3.2 G/DL (3.4-5.0); Alkaline Phosphatase 173 U/L (45-117); Aspartate Amino Transferase 26 U/L (0-37); Bilirubin,Total < 0.39 MG/DL (0.2-1.0); Blood Urea Nitrogen 51 MG/DL (7-18); Calcium 8.6 MG/DL (8.5-10.1); Estimated Glom Filtration Rate 33 ML/MIN; Glucose 83 MG/DL (74-106); Osmolality,Calculated 289.5 MOS/KG (273-304)
[2019-08-28 03:23] LABS: Basophils # 0.1 10*3/uL (0.0-0.2); Basophils % 0.8 % (0.0-0.8); Eosinophils # 1.2 10*3/uL (0.0-0.87); Eosinophils % 8.7 % (0.00-10.9); Hematocrit 43.5 VOL% (35.7-47.0); Hemoglobin 12.8 GM/DL (12.0-16.0); Immature Granulocytes % 0.2 %; Immature Granulocytes Absolute 0.03 #; Lymphocytes # 6.5 10*3/uL (1.4-4.0); Lymphocytes % 48.7 % (21.3-54.2); Mean Corpuscular HGB Conc 29.4 GM/DL (32-36); Mean Corpuscular Volume 81.8 FL (87-102); Mean Platelet Volume 9.9 FL (9.6-12.0); Neutrophils % 33.6 % (38.7-73.9); Platelet Count 227 T/CUMM (130-400); Red Blood Count 5.32 MC/CUMM (3.8-5.5); Red Cell Distribution Width 16.5 % (9.3-17.3); White Blood Count 13.3 T/CUMM (4-12)
[2019-08-28 03:30] LABS: Anisocytosis Slight; Band Neutrophils 1 % (0-10); Eosinophils 9 % (0-10); Lymphocytes 46 % (20-55); Microcytosis 1+; Platelet Estimate Normal; Segmented Neutrophils 35 % (50-85); Total Cells Counted 100
[2019-08-28 03:31] LABS: Hypochromasia Slight; Polychromasia Slight; Target Cells Slight
[2019-08-28] MEDS ORDERED: hydrALAZINE 20 MG/1 ML VIAL IV PRN (04:22)
[2019-08-28] MEDS ORDERED: ACETAMINOPHEN 325 MG TABLET PO PRN (04:22)
[2019-08-28] MEDS ORDERED: ONDANSETRON 4 MG/2 ML VIAL IV PRN (04:22)
[2019-08-28] MEDS ORDERED: hydrALAZINE 20 MG/1 ML VIAL IV STA (04:34)
[2019-08-28] MEDS ORDERED: ALBUTEROL 1.25 MG/3 ML NEB RESP TX PRN (04:52)
[2019-08-28] MEDS: ALBUTEROL/IPRATROPIUM 3 ML NEB RESP TX SCH ×5 (07:20→22:55)
[2019-08-28] MEDS ORDERED: carvediloL 6.25 MG TABLET PO SCH (08:00)
[2019-08-28] MEDS ORDERED: amLODIPine 5 MG TABLET PO SCH (09:00)
[2019-08-28] MEDS: PANTOPRAZOLE 40 MG TABLET PO SCH (09:10)
[2019-08-28] MEDS: BUDESONIDE/FORMOTEROL 80-4.5 INHALER 6.9 GM INH SCH ×2 (09:11→20:50)
[2019-08-28] MEDS: cloNIDine 0.1 MG TABLET PO SCH ×3 (09:11→20:50)
[2019-08-28 09:40] LABS: INR 1.1; PT Patient Result 11.9 SECS (9.6-12.2); Partial Thromboplastin Time 27.4 SECS (20.8-36.0)
[2019-08-28] MEDS ORDERED: amLODIPine 10 MG TABLET PO SCH (10:48)
[2019-08-28] MEDS: RIFAXIMIN 550 MG TABLET PO SCH ×2 (10:56→20:50)
[2019-08-28] MEDS: LACTULOSE 20 GM/30 ML UDCUP PO SCH ×3 (10:57→23:16)
[2019-08-28] MEDS ORDERED: cefTRIAXone 1,000 MG in SYRINGE 1 EACH IV SCH (11:00)
[2019-08-28] MEDS: methylPREDNISolone SOD SUC 40 MG/1 ML VIAL IV SCH (15:07)
[2019-08-28] MEDS: carvediloL 6.25 MG TABLET PO SCH (16:30)
[2019-08-28] MEDS ORDERED: LACTULOSE 20 GM/30 ML UDCUP PO SCH (21:00)
[2019-08-29] MEDS: ALBUTEROL/IPRATROPIUM 3 ML NEB RESP TX SCH ×2 (03:09→07:22)
[2019-08-29] MEDS: methylPREDNISolone SOD SUC 40 MG/1 ML VIAL IV SCH (03:35)
[2019-08-29] MEDS: LACTULOSE 20 GM/30 ML UDCUP PO SCH (05:30)
[2019-08-29 05:40] LABS: Basophils % 0.1 % (0.0-0.8); Hematocrit 37.2 VOL% (35.7-47.0); Hemoglobin 11.5 GM/DL (12.0-16.0); Immature Granulocytes % 0.5 %; Immature Granulocytes Absolute 0.11 #; Lymphocytes # 2.7 10*3/uL (1.4-4.0); Lymphocytes % 12.5 % (21.3-54.2); Mean Corpuscular HGB Conc 30.9 GM/DL (32-36); Mean Corpuscular Volume 78.5 FL (87-102); Monocytes % 5.6 % (1.7-12.7); Neutrophils % 81.3 % (38.7-73.9); Platelet Count 202 T/CUMM (130-400); Red Blood Count 4.74 MC/CUMM (3.8-5.5); Red Cell Distribution Width 16.6 % (9.3-17.3); White Blood Count 21.4 T/CUMM (4-12)
[2019-08-29 06:04] LABS: Anisocytosis Slight; Lymphocytes 12 % (20-55); Microcytosis Slight; Platelet Estimate Normal; Segmented Neutrophils 82 % (50-85); Total Cells Counted 100
[2019-08-29 06:27] LABS: Alanine Aminotransferase 13 U/L (13-56); Albumin 3.1 G/DL (3.4-5.0); Alkaline Phosphatase 122 U/L (45-117); Aspartate Amino Transferase 15 U/L (0-37); Bilirubin,Total < 0.39 MG/DL (0.2-1.0); Blood Urea Nitrogen 56 MG/DL (7-18); Calcium 8.7 MG/DL (8.5-10.1); Estimated Glom Filtration Rate 33 ML/MIN; Glucose 132 MG/DL (74-106); Osmolality,Calculated 285.2 MOS/KG (273-304); Total Protein 7.6 G/DL (6.4-8.3)
[2019-08-29 08:10] VITALS: BP 149/73
[2019-08-29] MEDS: RIFAXIMIN 550 MG TABLET PO SCH (08:36)
[2019-08-29] MEDS: BUDESONIDE/FORMOTEROL 80-4.5 INHALER 6.9 GM INH SCH (08:36)
[2019-08-29] MEDS: PANTOPRAZOLE 40 MG TABLET PO SCH (08:38)
[2019-08-29] MEDS: carvediloL 6.25 MG TABLET PO SCH (08:39)
[2019-08-29] MEDS: cloNIDine 0.1 MG TABLET PO SCH (08:41)
[2019-08-29] MEDS ORDERED: VALSARTAN/HCTZ 160-12.5 MG TABLET PO SCH (09:00)
[2019-08-29] MEDS ORDERED: FUROSEMIDE 40 MG TABLET PO SCH (09:00)
[2019-08-29] MEDS ORDERED: AZITHROMYCIN 250 MG TABLET PO SCH (12:00)
== END 2019-08-29 10:20 | disposition home or self-care (01) ==
LOC: N.ED 01:13 → INTOOBSV 04:46 → N.EDINP 04:46 → N.3E 04:56
PROVIDERS: ADMIT Internal Medicine; ATTEND Internal Medicine

== ENCOUNTER 2020-08-11 06:54 | Observation (INO) ==
[2020-08-11] MEDS ORDERED: methylPREDNISolone SOD SUC 125 MG/2 ML VIAL IV STA (07:08)
[2020-08-11] MEDS ORDERED: ALBUTEROL 2.5 MG/3 ML NEB RESP TX STA ×2 (07:09→11:56)
[2020-08-11] MEDS ORDERED: hydrALAZINE 20 MG/1 ML VIAL IV STA (07:13)
[2020-08-11 07:54] LABS: Basophils % 0.3 % (0.0-0.8); Eosinophils % 0.4 % (0.00-10.9); Hematocrit 33.4 VOL% (35.7-47.0); Hemoglobin 10.8 GM/DL (12.0-16.0); Immature Granulocytes % 0.4 %; Immature Granulocytes Absolute 0.04 #; Lymphocytes # 3.6 10*3/uL (1.4-4.0); Lymphocytes % 32.6 % (21.3-54.2); Mean Corpuscular HGB Conc 32.3 GM/DL (32-36); Mean Corpuscular Volume 81.9 FL (87-102); Monocytes % 9.5 % (1.7-12.7); Neutrophils % 56.8 % (38.7-73.9); Platelet Count 135 T/CUMM (130-400); Red Blood Count 4.08 MC/CUMM (3.8-5.5); Red Cell Distribution Width 18.8 % (9.3-17.3); White Blood Count 11.1 T/CUMM (4-12)
[2020-08-11] MEDS ORDERED: ACETAMINOPHEN 500 MG TABLET PO STA (07:57)
[2020-08-11 08:06] LABS: Calcium 8.2 MG/DL (8.5-10.1); Osmolality,Calculated 290.1 MOS/KG (273-304); Potassium 3.8 MMOL/L (3.5-5.1)
[2020-08-11 08:37] LABS: Platelet Estimate Adequate
[2020-08-11 08:38] LABS: Anisocytosis 2+; Macrocytosis 2+; Poikilocytosis 1+; Target Cells Few
[2020-08-11] MEDS ORDERED: ASPIRIN CHEW 81 MG TABLET PO STA (10:04)
[2020-08-11] MEDS ORDERED: NITROGLYCERIN SL 0.4 MG TABLET SL PRN (10:04)
[2020-08-11] MEDS ORDERED: ENOXAPARIN 40 MG/0.4 ML SYRINGE SUBCUT STA ×2 (10:05→12:05)
[2020-08-11 11:08] LABS: ABG Base Excess -8.1 MMOL/L (-2.5-2.5); ABG HCO3 15.7 MMOL/L (20-26); ABG Oxygen Saturation 96.3 % (95-100); ABG PCO2 27.1 MM HG (35-48); ABG PO2 87.1 MM HG (80-95); ABG TCO2 16.5 MMOL/L (23-27)
[2020-08-11] MEDS ORDERED: hydrALAZINE 20 MG/1 ML VIAL IV PRN (11:53)
[2020-08-11] MEDS ORDERED: BISACODYL 5 MG TABLET PO PRN (11:53)
[2020-08-11] MEDS ORDERED: ONDANSETRON 4 MG/2 ML VIAL IV PRN (11:53)
[2020-08-11] MEDS ORDERED: DOCUSATE SODIUM 100 MG CAPSULE PO PRN (11:53)
[2020-08-11] MEDS ORDERED: DEXTROSE 50% 25 GM/50 ML VIAL IV PRN (11:53)
[2020-08-11] MEDS ORDERED: GLUCAGON 1 MG VIAL IM PRN (11:53)
[2020-08-11] MEDS ORDERED: NICOTINE 21 MG/24 HR PATCH TRANSDERM PRN (12:00)
[2020-08-11] MEDS ORDERED: FUROSEMIDE 40 MG/4 ML VIAL IV ONE (12:09)
[2020-08-11] MEDS: ALBUTEROL/IPRATROPIUM 3 ML NEB RESP TX SCH ×2 (12:13→19:24)
[2020-08-11] MEDS ORDERED: AZITHROMYCIN 250 MG TABLET PO ONE (12:49)
[2020-08-11] MEDS: METOPROLOL TARTRATE 50 MG TABLET PO SCH ×2 (14:40→21:09)
[2020-08-11] MEDS: cloNIDine 0.1 MG TABLET PO SCH ×2 (14:45→21:09)
[2020-08-11] MEDS: methylPREDNISolone SOD SUC 125 MG/2 ML VIAL IV SCH (15:22)
[2020-08-11] MEDS ORDERED: chlordiazePOXIDE 10 MG CAPSULE PO PRN (15:44)
[2020-08-11] MEDS: amLODIPine 5 MG TABLET PO SCH (16:05)
[2020-08-11 16:25] LABS: Barbiturates Screen,Urine Negative (Negative); Benzodiazepines Screen,Urine Negative (Negative); Cannabinoid Screen,Urine Positive (Negative); Opiate Screen,Urine Negative (Negative); Phencyclidine Screen,Urine Negative (Negative)
[2020-08-11] MEDS: SODIUM BICARBONATE 650 MG TABLET PO SCH (21:09)
[2020-08-12] MEDS: ALBUTEROL/IPRATROPIUM 3 ML NEB RESP TX SCH ×4 (00:29→19:40)
[2020-08-12] MEDS: methylPREDNISolone SOD SUC 125 MG/2 ML VIAL IV SCH ×4 (00:40→23:51)
[2020-08-12] MEDS ORDERED: ENOXAPARIN 80 MG/0.8 ML SYRINGE SUBCUT SCH (01:00)
[2020-08-12 07:08] LABS: Basophils % 0.1 % (0.0-0.8); Hematocrit 29.5 VOL% (35.7-47.0); Immature Granulocytes % 0.4 %; Immature Granulocytes Absolute 0.05 #; Lymphocytes # 0.8 10*3/uL (1.4-4.0); Lymphocytes % 6.5 % (21.3-54.2); Mean Corpuscular HGB Conc 33.9 GM/DL (32-36); Mean Corpuscular Volume 79.3 FL (87-102); Monocytes % 3.2 % (1.7-12.7); NRBC # 0.05 10*3/uL; Neutrophils % 89.8 % (38.7-73.9); Platelet Count 115 T/CUMM (130-400); Red Blood Count 3.72 MC/CUMM (3.8-5.5); Red Cell Distribution Width 17.9 % (9.3-17.3); White Blood Count 12.5 T/CUMM (4-12)
[2020-08-12 07:28] LABS: Albumin 2.5 G/DL (3.4-5.0); Bilirubin,Total 1.5 MG/DL (0.2-1.0); Calcium 7.7 MG/DL (8.5-10.1); Potassium 4.4 MMOL/L (3.5-5.1); Total Protein 6.6 G/DL (6.4-8.3)
[2020-08-12 07:44] LABS: Platelet Estimate Adequate
[2020-08-12 07:45] LABS: Anisocytosis 1+; Burr Cells Few; Macrocytosis 1+; Ovalocytes Few; Poikilocytosis 1+; Target Cells 2+
[2020-08-12] MEDS: cloNIDine 0.1 MG TABLET PO SCH ×3 (08:20→20:22)
[2020-08-12] MEDS: AZITHROMYCIN 250 MG TABLET PO SCH (08:26)
[2020-08-12] MEDS: METOPROLOL TARTRATE 50 MG TABLET PO SCH ×2 (08:26→20:22)
[2020-08-12] MEDS: SODIUM BICARBONATE 650 MG TABLET PO SCH ×2 (08:26→20:21)
[2020-08-12] MEDS: PANTOPRAZOLE 40 MG TABLET PO SCH (08:26)
[2020-08-12] MEDS: amLODIPine 5 MG TABLET PO SCH (08:26)
[2020-08-12] MEDS: ENALAPRIL 10 MG TABLET PO SCH (08:28)
[2020-08-12] MEDS: FUROSEMIDE 40 MG TABLET PO SCH (09:54)
[2020-08-12] MEDS ORDERED: MAGNESIUM SULF RIDER 4 GM in PREMIX 1 EACH IV ONE (16:32)
[2020-08-13] MEDS: ALBUTEROL/IPRATROPIUM 3 ML NEB RESP TX SCH ×3 (00:33→07:45)
[2020-08-13] MEDS: methylPREDNISolone SOD SUC 125 MG/2 ML VIAL IV SCH (06:09)
[2020-08-13 06:38] LABS: Basophils % 0.1 % (0.0-0.8); Hematocrit 28.9 VOL% (35.7-47.0); Hemoglobin 9.7 GM/DL (12.0-16.0); Immature Granulocytes % 0.5 %; Immature Granulocytes Absolute 0.07 #; Lymphocytes # 0.3 10*3/uL (1.4-4.0); Lymphocytes % 2.6 % (21.3-54.2); Mean Corpuscular HGB Conc 33.6 GM/DL (32-36); Mean Corpuscular Volume 80.1 FL (87-102); Monocytes % 2.1 % (1.7-12.7); NRBC # 0.06 10*3/uL; Neutrophils % 94.7 % (38.7-73.9); Red Blood Count 3.61 MC/CUMM (3.8-5.5); Red Cell Distribution Width 17.7 % (9.3-17.3); White Blood Count 13.1 T/CUMM (4-12)
[2020-08-13 06:40] LABS: Platelet Count 144 T/CUMM (130-400)
[2020-08-13 06:55] LABS: Calcium 7.4 MG/DL (8.5-10.1); Potassium 3.9 MMOL/L (3.5-5.1)
[2020-08-13 06:57] LABS: Band Neutrophils 2 % (0-10); Lymphocytes 1 % (20-55); Platelet Estimate Adequate; Segmented Neutrophils 95 % (50-85); Total Cells Counted 100
[2020-08-13 06:58] LABS: Anisocytosis 2+; Helmet Cells Few; Poikilocytosis Slight; Polychromasia Slight; Target Cells 1+
[2020-08-13] MEDS: SODIUM BICARBONATE 650 MG TABLET PO SCH (08:10)
[2020-08-13] MEDS: ENALAPRIL 10 MG TABLET PO SCH (08:10)
[2020-08-13] MEDS: PANTOPRAZOLE 40 MG TABLET PO SCH (08:10)
[2020-08-13] MEDS: METOPROLOL TARTRATE 50 MG TABLET PO SCH (08:10)
[2020-08-13] MEDS: amLODIPine 5 MG TABLET PO SCH (08:10)
[2020-08-13] MEDS: AZITHROMYCIN 250 MG TABLET PO SCH (08:10)
[2020-08-13] MEDS: cloNIDine 0.1 MG TABLET PO SCH (08:10)
[2020-08-13] MEDS: FUROSEMIDE 40 MG TABLET PO SCH (08:11)
[2020-08-13] MEDS ORDERED: ENOXAPARIN 40 MG/0.4 ML SYRINGE SUBCUT SCH (09:00)
[2020-08-13] MEDS ORDERED: FUROSEMIDE 40 MG TABLET PO SCH (09:00)
[2020-08-13] MEDS ORDERED: MAGNESIUM SULF RIDER 2 GM in PREMIX 1 EACH IV ONE (10:47)
[2020-08-13 12:48] VITALS: BP 110/65
[2020-08-14] MEDS ORDERED: MAGNESIUM CHLORIDE 64 MG TABLET PO SCH (09:00)
== END 2020-08-13 13:45 | disposition home or self-care (01) ==
LOC: EDUNIT# → EDBD → N.ED 06:54 → SUATTDRO 11:53 → N.EDINP 11:53 → INTOOBSV 11:53 → N.TELES 18:06
PROVIDERS: ADMIT Internal Medicine; ATTEND Emergency Medicine

== ENCOUNTER 2020-12-02 21:36 | Inpatient (IN) ==
[2020-12-02] MEDS ORDERED: methylPREDNISolone SOD SUC 125 MG/2 ML VIAL IV STA (22:45)
[2020-12-02] MEDS ORDERED: MORPHINE 4 MG/1 ML VIAL IV STA (22:45)
[2020-12-02] MEDS ORDERED: ONDANSETRON 4 MG/2 ML VIAL IV STA (22:45)
[2020-12-02] MEDS ORDERED: cefTRIAXone 1,000 MG in SODIUM CHLORIDE 0.9% 100 ML IV STA (22:45)
[2020-12-02] MEDS ORDERED: FUROSEMIDE 100 MG/10 ML VIAL IV STA (22:45)
[2020-12-02 22:55] LABS: Basophils # 0.1 10*3/uL (0.0-0.2); Basophils % 0.5 % (0.0-0.8); Eosinophils # 0.2 10*3/uL (0.0-0.87); Eosinophils % 1.6 % (0.00-10.9); Hematocrit 34.3 VOL% (35.7-47.0); Hemoglobin 11.4 GM/DL (12.0-16.0); Immature Granulocytes % 0.2 %; Immature Granulocytes Absolute 0.02 #; Lymphocytes # 2.1 10*3/uL (1.4-4.0); Lymphocytes % 22.5 % (21.3-54.2); Mean Corpuscular HGB Conc 33.2 GM/DL (32-36); Mean Corpuscular Volume 76.2 FL (87-102); Mean Platelet Volume 10.4 FL (9.6-12.0); Monocytes % 10.8 % (1.7-12.7); Neutrophils % 64.4 % (38.7-73.9); Platelet Count 182 T/CUMM (130-400); Red Cell Distribution Width 17.8 % (9.3-17.3); White Blood Count 9.2 T/CUMM (4-12)
[2020-12-02] MEDS ORDERED: ALBUTEROL NEB SOLN 5 MG/ML 20 ML/BOTTLE CONT NEB SCH (23:00)
[2020-12-02 23:14] LABS: INR 1.2; PT Patient Result 13.2 SECS (10.5-12.0)
[2020-12-02 23:21] LABS: Albumin 3.1 G/DL (3.4-5.0); Bilirubin,Total 0.8 MG/DL (0.2-1.0); Calcium 8.6 MG/DL (8.5-10.1); Osmolality,Calculated 281.7 MOS/KG (273-304); Total Protein 7.3 G/DL (6.4-8.2)
[2020-12-02 23:24] LABS: ABG HCO3 18.4 MMOL/L (20-26); ABG Oxygen Saturation 81.1 % (95-100); ABG PCO2 31.1 MM HG (35-48); ABG PH 7.357 (7.35-7.45); ABG PO2 48.8 MM HG (80-95); ABG TCO2 15.7 MMOL/L (23-27); Allen Test Positive
[2020-12-02] MEDS ORDERED: MAGNESIUM SULF RIDER 2 GM/50 ML PREMIX IV STA (23:42)
[2020-12-03] MEDS ORDERED: ENOXAPARIN 100 MG/ML SYRINGE SUBCUT STA (00:01)
[2020-12-03] MEDS ORDERED: hydrALAZINE 20 MG/1 ML VIAL IV STA (00:07)
[2020-12-03 02:20] LABS: Bilirubin,Urine Negative (Negative); Blood, Urine Small mg/dL (Negative); Glucose,Urine (UA) Negative (Negative); Hyaline Casts,Urine 3 /LPF (0-3); Ketones,Urine Negative (Negative); Mucus,Urine Occasional /LPF (Occasional); Nitrite,Urine Negative (Negative); Protein,Urine 100 MG/DL; RBC,Urine 4 /HPF (0-4); Squamous Epithelial Cell,Urine Occasional /HPF (0-10); Urine Appearance CLEAR (Clear); Urine Color Yellow (Yellow); Urine Specific Gravity 1.006 (1.001-1.035); Urine Urobilinogen < 2.0 EU/DL (0.2-1.0)
[2020-12-03] MEDS ORDERED: GLUCAGON 1 MG VIAL IM PRN (02:40)
[2020-12-03] MEDS ORDERED: DEXTROSE 50% 25 GM/50 ML VIAL IV PRN (02:40)
[2020-12-03] MEDS ORDERED: MAGNESIUM SULF RIDER 4 GM/100 ML PREMIX IV PRN (02:48)
[2020-12-03] MEDS ORDERED: MAGNESIUM SULF RIDER 2 GM/50 ML PREMIX IV PRN (02:48)
[2020-12-03] MEDS ORDERED: POTASSIUM CHLORIDE RIDER 10 MEQ/100 ML PREMIX IV PRN (02:48)
[2020-12-03 03:13] LABS: Barbiturates Screen,Urine Negative (Negative); Benzodiazepines Screen,Urine Negative (Negative); Cannabinoid Screen,Urine Negative (Negative); Opiate Screen,Urine Negative (Negative); Phencyclidine Screen,Urine Negative (Negative)
[2020-12-03 03:20] LABS: Basophils % 0.3 % (0.0-0.8); Hematocrit 32.9 VOL% (35.7-47.0); Hemoglobin 11.1 GM/DL (12.0-16.0); Immature Granulocytes % 0.3 %; Immature Granulocytes Absolute 0.02 #; Lymphocytes # 0.3 10*3/uL (1.4-4.0); Lymphocytes % 4.9 % (21.3-54.2); Mean Corpuscular HGB Conc 33.7 GM/DL (32-36); Mean Corpuscular Volume 76.2 FL (87-102); Mean Platelet Volume 10.8 FL (9.6-12.0); Monocytes % 1.3 % (1.7-12.7); NRBC # 0.02 10*3/uL; Neutrophils % 93.2 % (38.7-73.9); Platelet Count 198 T/CUMM (130-400); Red Blood Count 4.32 MC/CUMM (3.8-5.5); Red Cell Distribution Width 17.5 % (9.3-17.3); White Blood Count 6.9 T/CUMM (4-12)
[2020-12-03 04:12] LABS: Hypochromasia Slight; Lymphocytes 2 % (20-55); Platelet Estimate Adequate; Segmented Neutrophils 97 % (50-85); Total Cells Counted 100
[2020-12-03 04:13] LABS: Albumin 2.8 G/DL (3.4-5.0); Bilirubin,Total 0.8 MG/DL (0.2-1.0); Calcium 8.2 MG/DL (8.5-10.1); Osmolality,Calculated 286.7 MOS/KG (273-304); Potassium 3.5 MMOL/L (3.5-5.1); Total Protein 6.9 G/DL (6.4-8.2)
[2020-12-03] MEDS: ALBUTEROL/IPRATROPIUM 3 ML NEB RESP TX SCH ×3 (07:04→20:10)
[2020-12-03] MEDS ORDERED: tiZANidine 4 MG TABLET PO PRN (09:27)
[2020-12-03] MEDS: FUROSEMIDE 40 MG/4 ML VIAL IV SCH ×2 (11:08→18:11)
[2020-12-03] MEDS: GABAPENTIN 300 MG CAPSULE PO SCH ×2 (11:08→20:23)
[2020-12-03] MEDS: METOPROLOL TARTRATE 50 MG TABLET PO SCH ×2 (11:08→20:23)
[2020-12-03] MEDS: amLODIPine 5 MG TABLET PO SCH (11:08)
[2020-12-03] MEDS: MONTELUKAST 10 MG TABLET PO SCH (11:09)
[2020-12-03] MEDS: PANTOPRAZOLE 40 MG TABLET PO SCH (11:09)
[2020-12-03] MEDS: MAGNESIUM CHLORIDE 64 MG TABLET PO SCH (11:09)
[2020-12-03] MEDS: cefTRIAXone 2,000 MG in SODIUM CHLORIDE 0.9% 100 ML IV SCH (11:58)
[2020-12-03] MEDS: AZITHROMYCIN INJ 500 MG in SODIUM CHLORIDE 0.9% 250 ML IV SCH (17:33)
[2020-12-03] MEDS: traZODone 50 MG TABLET PO SCH (20:23)
[2020-12-04] MEDS: ALBUTEROL/IPRATROPIUM 3 ML NEB RESP TX SCH ×4 (00:51→19:00)
[2020-12-04 05:10] LABS: Basophils % 0.1 % (0.0-0.8); Hematocrit 32.4 VOL% (35.7-47.0); Hemoglobin 10.8 GM/DL (12.0-16.0); Immature Granulocytes % 0.3 %; Immature Granulocytes Absolute 0.04 #; Lymphocytes # 1.9 10*3/uL (1.4-4.0); Lymphocytes % 14.1 % (21.3-54.2); Mean Corpuscular HGB Conc 33.3 GM/DL (32-36); Mean Platelet Volume 11.4 FL (9.6-12.0); Monocytes % 8.2 % (1.7-12.7); Neutrophils % 77.3 % (38.7-73.9); Platelet Count 186 T/CUMM (130-400); Red Blood Count 4.21 MC/CUMM (3.8-5.5); Red Cell Distribution Width 17.5 % (9.3-17.3); White Blood Count 13.5 T/CUMM (4-12)
[2020-12-04 05:37] LABS: Calcium 7.9 MG/DL (8.5-10.1); Potassium 4.5 MMOL/L (3.5-5.1)
[2020-12-04] MEDS ORDERED: LACTULOSE 20 GM/30 ML UDCUP PO ONE (08:25)
[2020-12-04] MEDS: MONTELUKAST 10 MG TABLET PO SCH (08:50)
[2020-12-04] MEDS: PANTOPRAZOLE 40 MG TABLET PO SCH (08:50)
[2020-12-04] MEDS: GABAPENTIN 300 MG CAPSULE PO SCH ×2 (08:50→21:19)
[2020-12-04] MEDS: MAGNESIUM CHLORIDE 64 MG TABLET PO SCH (08:51)
[2020-12-04] MEDS: METOPROLOL TARTRATE 50 MG TABLET PO SCH ×2 (08:51→21:11)
[2020-12-04] MEDS: amLODIPine 5 MG TABLET PO SCH (08:51)
[2020-12-04] MEDS: AZITHROMYCIN INJ 500 MG in SODIUM CHLORIDE 0.9% 250 ML IV SCH (08:51)
[2020-12-04] MEDS: FUROSEMIDE 40 MG TABLET PO SCH (08:51)
[2020-12-04] MEDS ORDERED: ENALAPRIL 10 MG TABLET PO SCH (09:00)
[2020-12-04] MEDS: ONDANSETRON 4 MG/2 ML VIAL IV PRN (10:16)
[2020-12-04] MEDS: cefTRIAXone 2,000 MG in SODIUM CHLORIDE 0.9% 100 ML IV SCH (11:17)
[2020-12-04] MEDS: traZODone 50 MG TABLET PO SCH (21:20)
[2020-12-05] MEDS: ALBUTEROL/IPRATROPIUM 3 ML NEB RESP TX SCH ×4 (01:35→20:16)
[2020-12-05 04:55] LABS: Basophils % 0.4 % (0.0-0.8); Eosinophils # 0.1 10*3/uL (0.0-0.87); Eosinophils % 0.9 % (0.00-10.9); Hematocrit 32.1 VOL% (35.7-47.0); Hemoglobin 10.9 GM/DL (12.0-16.0); Immature Granulocytes % 0.5 %; Immature Granulocytes Absolute 0.05 #; Lymphocytes % 29.2 % (21.3-54.2); Mean Corpuscular Volume 75.9 FL (87-102); Monocytes % 9.6 % (1.7-12.7); NRBC # 0.02 10*3/uL; Neutrophils % 59.4 % (38.7-73.9); Platelet Count 132 T/CUMM (130-400); Red Blood Count 4.23 MC/CUMM (3.8-5.5); Red Cell Distribution Width 17.3 % (9.3-17.3); White Blood Count 10.3 T/CUMM (4-12)
[2020-12-05 05:17] LABS: Platelet Estimate Adequate
[2020-12-05 05:28] LABS: Calcium 7.6 MG/DL (8.5-10.1); Osmolality,Calculated 288.8 MOS/KG (273-304); Potassium 4.4 MMOL/L (3.5-5.1)
[2020-12-05] MEDS ORDERED: SODIUM CHLORIDE 0.9% 250 ML IV ONE (10:01)
[2020-12-05] MEDS: MAGNESIUM CHLORIDE 64 MG TABLET PO SCH (10:02)
[2020-12-05] MEDS: FUROSEMIDE 40 MG TABLET PO SCH (10:02)
[2020-12-05] MEDS: PANTOPRAZOLE 40 MG TABLET PO SCH (10:02)
[2020-12-05] MEDS: METOPROLOL TARTRATE 50 MG TABLET PO SCH ×2 (10:02→20:57)
[2020-12-05] MEDS: amLODIPine 5 MG TABLET PO SCH (10:02)
[2020-12-05] MEDS: GABAPENTIN 300 MG CAPSULE PO SCH ×2 (10:02→20:56)
[2020-12-05] MEDS: MONTELUKAST 10 MG TABLET PO SCH (10:03)
[2020-12-05] MEDS: cefTRIAXone 2,000 MG in SODIUM CHLORIDE 0.9% 100 ML IV SCH ×2 (10:05→12:26)
[2020-12-05] MEDS: AZITHROMYCIN INJ 500 MG in SODIUM CHLORIDE 0.9% 250 ML IV SCH (11:34)
[2020-12-05] MEDS: ONDANSETRON 4 MG/2 ML VIAL IV PRN (12:29)
[2020-12-05] MEDS: ACETAMINOPHEN 325 MG TABLET PO PRN (15:35)
[2020-12-05] MEDS: traZODone 50 MG TABLET PO SCH (20:57)
[2020-12-06] MEDS: ALBUTEROL/IPRATROPIUM 3 ML NEB RESP TX SCH ×3 (00:05→13:35)
[2020-12-06 04:31] LABS: Basophils % 0.5 % (0.0-0.8); Eosinophils # 0.1 10*3/uL (0.0-0.87); Eosinophils % 1.5 % (0.00-10.9); Hematocrit 30.5 VOL% (35.7-47.0); Hemoglobin 10.3 GM/DL (12.0-16.0); Immature Granulocytes % 0.3 %; Immature Granulocytes Absolute 0.02 #; Lymphocytes # 2.5 10*3/uL (1.4-4.0); Lymphocytes % 34.4 % (21.3-54.2); Mean Corpuscular HGB Conc 33.8 GM/DL (32-36); Mean Corpuscular Volume 75.9 FL (87-102); Mean Platelet Volume 11.7 FL (9.6-12.0); Monocytes % 8.9 % (1.7-12.7); NRBC # 0.05 10*3/uL; Neutrophils % 54.4 % (38.7-73.9); Platelet Count 137 T/CUMM (130-400); Red Blood Count 4.02 MC/CUMM (3.8-5.5); Red Cell Distribution Width 17.2 % (9.3-17.3); White Blood Count 7.3 T/CUMM (4-12)
[2020-12-06 04:51] LABS: Calcium 7.8 MG/DL (8.5-10.1); Osmolality,Calculated 287.1 MOS/KG (273-304); Potassium 4.7 MMOL/L (3.5-5.1)
[2020-12-06 04:52] LABS: Hypochromasia Slight; Platelet Estimate Adequate
[2020-12-06 04:53] LABS: Acanthocytes Few; Burr Cells Slight
[2020-12-06] MEDS: PANTOPRAZOLE 40 MG TABLET PO SCH (10:29)
[2020-12-06] MEDS: FUROSEMIDE 40 MG TABLET PO SCH (10:29)
[2020-12-06] MEDS: MONTELUKAST 10 MG TABLET PO SCH (10:29)
[2020-12-06] MEDS: GABAPENTIN 300 MG CAPSULE PO SCH (10:29)
[2020-12-06] MEDS: MAGNESIUM CHLORIDE 64 MG TABLET PO SCH (10:29)
[2020-12-06] MEDS: amLODIPine 5 MG TABLET PO SCH (10:30)
[2020-12-06] MEDS: AZITHROMYCIN INJ 500 MG in SODIUM CHLORIDE 0.9% 250 ML IV SCH (10:30)
[2020-12-06] MEDS: METOPROLOL TARTRATE 50 MG TABLET PO SCH (10:30)
[2020-12-06] MEDS: ACETAMINOPHEN 325 MG TABLET PO PRN (11:44)
[2020-12-06] MEDS: ONDANSETRON 4 MG/2 ML VIAL IV PRN (12:41)
[2020-12-06] MEDS: cefTRIAXone 2,000 MG in SODIUM CHLORIDE 0.9% 100 ML IV SCH (12:42)
[2020-12-06 16:40] VITALS: BP 101/70
== END 2020-12-06 18:47 | disposition home or self-care (01) | DRG 194 ==
LOC: EDUNIT# → N.EDINP 21:36 → N.ED 21:36 → SUATTDRO 12-03 02:40 → N.TELEN 12-03 16:50
PROVIDERS: ADMIT Internal Medicine; ATTEND Internal Medicine

== ENCOUNTER 2020-12-08 23:10 | Observation (INO) ==
[2020-12-08] MEDS ORDERED: methylPREDNISolone SOD SUC 125 MG/2 ML VIAL IV STA (23:37)
[2020-12-08] MEDS ORDERED: FUROSEMIDE 100 MG/10 ML VIAL IV STA (23:37)
[2020-12-08] MEDS ORDERED: ALBUTEROL/IPRATROPIUM 3 ML NEB RESP TX STA (23:37)
[2020-12-08 23:51] LABS: Basophils % 0.5 % (0.0-0.8); Eosinophils # 0.2 10*3/uL (0.0-0.87); Eosinophils % 2.8 % (0.00-10.9); Hematocrit 31.8 VOL% (35.7-47.0); Hemoglobin 10.4 GM/DL (12.0-16.0); Immature Granulocytes % 0.3 %; Immature Granulocytes Absolute 0.02 #; Lymphocytes # 2.2 10*3/uL (1.4-4.0); Lymphocytes % 29.1 % (21.3-54.2); Mean Corpuscular HGB Conc 32.7 GM/DL (32-36); Mean Corpuscular Volume 77.2 FL (87-102); Mean Platelet Volume 10.4 FL (9.6-12.0); Monocytes % 11.9 % (1.7-12.7); Neutrophils % 55.4 % (38.7-73.9); Platelet Count 197 T/CUMM (130-400); Red Blood Count 4.12 MC/CUMM (3.8-5.5); White Blood Count 7.5 T/CUMM (4-12)
[2020-12-09 00:08] LABS: Alanine Aminotransferase 22 U/L (13-56); Alkaline Phosphatase 152 U/L (45-117); Aspartate Amino Transferase 37 U/L (0-37); Bilirubin,Total < 0.39 MG/DL (0.2-1.0); Blood Urea Nitrogen 74 MG/DL (7-18); Calcium 8.2 MG/DL (8.5-10.1); Carbon Dioxide 18 MMOL/L (21-32); Estimated Glom Filtration Rate 22 ML/MIN; Glucose 71 MG/DL (74-106); Osmolality,Calculated 285.4 MOS/KG (273-304); Potassium 5.2 MMOL/L (3.5-5.1); Sodium 133 MMOL/L (136-145); Total Protein 7.4 G/DL (6.4-8.2)
[2020-12-09] MEDS ORDERED: LEVOFLOXACIN INJ 500 MG/100 ML PREMIX IV STA (00:31)
[2020-12-09] MEDS ORDERED: ZALEPLON 5 MG CAPSULE PO PRN (00:51)
[2020-12-09] MEDS ORDERED: DEXTROSE 50% 25 GM/50 ML VIAL IV PRN (00:51)
[2020-12-09] MEDS ORDERED: GLUCAGON 1 MG VIAL IM PRN (00:51)
[2020-12-09] MEDS ORDERED: MAGNESIUM SULF RIDER 2 GM/50 ML PREMIX IV PRN (00:51)
[2020-12-09] MEDS ORDERED: ONDANSETRON 4 MG/2 ML VIAL IV PRN (00:51)
[2020-12-09] MEDS ORDERED: ACETAMINOPHEN 325 MG TABLET PO PRN (00:51)
[2020-12-09] MEDS ORDERED: MAGNESIUM SULF RIDER 4 GM/100 ML PREMIX IV PRN (00:51)
[2020-12-09] MEDS ORDERED: tiZANidine 4 MG TABLET PO PRN (01:02)
[2020-12-09] MEDS ORDERED: LEVOFLOXACIN INJ 250 MG/50 ML PREMIX IV ONE (01:02)
[2020-12-09] MEDS ORDERED: hydrALAZINE 20 MG/1 ML VIAL IV STA (01:04)
[2020-12-09] MEDS ORDERED: ALBUTEROL/IPRATROPIUM 3 ML NEB RESP TX STA (01:12)
[2020-12-09] MEDS ORDERED: LORazepam 2 MG/1 ML VIAL IV PRN (01:36)
[2020-12-09] MEDS: ALBUTEROL/IPRATROPIUM 3 ML NEB RESP TX SCH ×4 (01:40→19:21)
[2020-12-09] MEDS ORDERED: hydrALAZINE 20 MG/1 ML VIAL IV ONE (03:18)
[2020-12-09 06:16] LABS: Basophils % 0.2 % (0.0-0.8); Hematocrit 32.4 VOL% (35.7-47.0); Hemoglobin 10.7 GM/DL (12.0-16.0); Immature Granulocytes % 0.2 %; Immature Granulocytes Absolute 0.01 #; Lymphocytes # 0.4 10*3/uL (1.4-4.0); Lymphocytes % 9.1 % (21.3-54.2); Mean Corpuscular Volume 75.7 FL (87-102); Mean Platelet Volume 10.6 FL (9.6-12.0); Monocytes % 0.6 % (1.7-12.7); Neutrophils % 89.9 % (38.7-73.9); Platelet Count 195 T/CUMM (130-400); Red Blood Count 4.28 MC/CUMM (3.8-5.5); Red Cell Distribution Width 17.3 % (9.3-17.3); White Blood Count 4.8 T/CUMM (4-12)
[2020-12-09 06:35] LABS: Alanine Aminotransferase 19 U/L (13-56); Albumin 2.7 G/DL (3.4-5.0); Alkaline Phosphatase 151 U/L (45-117); Aspartate Amino Transferase 33 U/L (0-37); Bilirubin,Total < 0.39 MG/DL (0.2-1.0); Blood Urea Nitrogen 75 MG/DL (7-18); Calcium 8.5 MG/DL (8.5-10.1); Carbon Dioxide 17 MMOL/L (21-32); Estimated Glom Filtration Rate 23 ML/MIN; Glucose 106 MG/DL (74-106); Osmolality,Calculated 285.5 MOS/KG (273-304); Potassium 5.1 MMOL/L (3.5-5.1); Sodium 132 MMOL/L (136-145); Total Protein 7.1 G/DL (6.4-8.2)
[2020-12-09] MEDS: THIAMINE 100 MG TABLET PO SCH (09:33)
[2020-12-09] MEDS: GABAPENTIN 300 MG CAPSULE PO SCH ×2 (09:33→20:38)
[2020-12-09] MEDS: PANTOPRAZOLE 40 MG TABLET PO SCH (09:33)
[2020-12-09] MEDS: MAGNESIUM CHLORIDE 64 MG TABLET PO SCH (09:33)
[2020-12-09] MEDS: amLODIPine 5 MG TABLET PO SCH (09:33)
[2020-12-09] MEDS: MONTELUKAST 10 MG TABLET PO SCH (09:34)
[2020-12-09] MEDS: SODIUM BICARBONATE 650 MG TABLET PO SCH ×2 (09:34→20:38)
[2020-12-09] MEDS: MULTIVITAMIN (CENTRUM) TABLET PO SCH (09:34)
[2020-12-09] MEDS: METOPROLOL TARTRATE 50 MG TABLET PO SCH ×2 (09:34→20:38)
[2020-12-09] MEDS: ENALAPRIL 10 MG TABLET PO SCH (09:34)
[2020-12-09] MEDS: FOLIC ACID 1 MG TABLET PO SCH (09:34)
[2020-12-09] MEDS: ENOXAPARIN 30 MG/0.3 ML SYRINGE SUBCUT SCH (09:34)
[2020-12-09] MEDS: FUROSEMIDE 40 MG/4 ML VIAL IV SCH ×2 (09:35→16:37)
[2020-12-09] MEDS: BUDESONIDE/FORMOTEROL 160-4.5 INHALER 6 GM INH SCH ×2 (09:42→22:22)
[2020-12-09 20:47] LABS: Barbiturates Screen,Urine Negative (Negative); Benzodiazepines Screen,Urine Negative (Negative); Cannabinoid Screen,Urine Negative (Negative); Opiate Screen,Urine Negative (Negative); Phencyclidine Screen,Urine Negative (Negative)
[2020-12-10] MEDS: ALBUTEROL/IPRATROPIUM 3 ML NEB RESP TX SCH ×2 (00:51→07:26)
[2020-12-10 07:15] LABS: Calcium 8.2 MG/DL (8.5-10.1); Osmolality,Calculated 291.2 MOS/KG (273-304); Potassium 5.3 MMOL/L (3.5-5.1)
[2020-12-10] MEDS ORDERED: SODIUM POLYSTYRENE SULFATE 15 GM/60 ML BOTTLE PO ONE (07:41)
[2020-12-10 08:07] LABS: Basophils % 0.1 % (0.0-0.8); Hematocrit 30.5 VOL% (35.7-47.0); Immature Granulocytes % 0.4 %; Immature Granulocytes Absolute 0.04 #; Lymphocytes # 1.5 10*3/uL (1.4-4.0); Lymphocytes % 13.9 % (21.3-54.2); Mean Corpuscular HGB Conc 32.8 GM/DL (32-36); Mean Corpuscular Volume 76.3 FL (87-102); Mean Platelet Volume 11.2 FL (9.6-12.0); Monocytes % 13.3 % (1.7-12.7); NRBC # 0.04 10*3/uL; Neutrophils % 72.3 % (38.7-73.9); Platelet Count 228 T/CUMM (130-400); Red Cell Distribution Width 17.1 % (9.3-17.3); White Blood Count 10.5 T/CUMM (4-12)
[2020-12-10 08:25] VITALS: BP 134/89
[2020-12-10] MEDS: ENALAPRIL 10 MG TABLET PO SCH (09:36)
[2020-12-10] MEDS: MAGNESIUM CHLORIDE 64 MG TABLET PO SCH (09:36)
[2020-12-10] MEDS: GABAPENTIN 300 MG CAPSULE PO SCH (09:36)
[2020-12-10] MEDS: MONTELUKAST 10 MG TABLET PO SCH (09:36)
[2020-12-10] MEDS: MULTIVITAMIN (CENTRUM) TABLET PO SCH (09:36)
[2020-12-10] MEDS: PANTOPRAZOLE 40 MG TABLET PO SCH (09:36)
[2020-12-10] MEDS: ENOXAPARIN 30 MG/0.3 ML SYRINGE SUBCUT SCH (09:36)
[2020-12-10] MEDS: METOPROLOL TARTRATE 50 MG TABLET PO SCH (09:36)
[2020-12-10] MEDS: THIAMINE 100 MG TABLET PO SCH (09:36)
[2020-12-10] MEDS: amLODIPine 5 MG TABLET PO SCH (09:37)
[2020-12-10] MEDS: FOLIC ACID 1 MG TABLET PO SCH (09:37)
[2020-12-10] MEDS: FUROSEMIDE 40 MG/4 ML VIAL IV SCH (09:37)
[2020-12-10] MEDS: SODIUM BICARBONATE 650 MG TABLET PO SCH (09:37)
[2020-12-10] MEDS: BUDESONIDE/FORMOTEROL 160-4.5 INHALER 6 GM INH SCH (09:38)
[2020-12-11] MEDS ORDERED: LEVOFLOXACIN INJ 750 MG/150 ML PREMIX IV SCH (01:00)
== END 2020-12-10 11:46 | disposition home or self-care (01) ==
LOC: EDUNIT# → EDBD → N.ED 23:10 → INTOOBSV 12-09 00:51 → N.EDINP 12-09 00:51 → N.TELES 12-09 01:36
PROVIDERS: ADMIT Internal Medicine; ATTEND Internal Medicine

== ENCOUNTER 2020-12-22 20:48 | Inpatient (IN) ==
[2020-12-22] MEDS ORDERED: ASPIRIN 325 MG TABLET PO STA (21:02)
[2020-12-22] MEDS ORDERED: hydrALAZINE 20 MG/1 ML VIAL IV STA (21:02)
[2020-12-22] MEDS ORDERED: FUROSEMIDE 100 MG/10 ML VIAL IV STA (21:02)
[2020-12-22] MEDS ORDERED: MORPHINE 4 MG/1 ML VIAL IV STA (21:02)
[2020-12-22] MEDS ORDERED: methylPREDNISolone SOD SUC 125 MG/2 ML VIAL IV STA (21:02)
[2020-12-22] MEDS ORDERED: ONDANSETRON 4 MG/2 ML VIAL IV STA (21:02)
[2020-12-22] MEDS ORDERED: NITROGLYCERIN 2% OINT 1 INCH/GM PACK TOP STA (21:02)
[2020-12-22 21:15] LABS: Bacteria,Urine Occasional /HPF (Few); Bilirubin,Urine Negative (Negative); Blood, Urine Small mg/dL (Negative); Glucose,Urine (UA) Negative (Negative); Ketones,Urine Negative (Negative); Nitrite,Urine Negative (Negative); Protein,Urine >=500 MG/DL; RBC,Urine 3 /HPF (0-4); Squamous Epithelial Cell,Urine Occasional /HPF (0-10); Urine Appearance Slightly Hazy (Clear); Urine Color Yellow (Yellow); Urine Specific Gravity 1.009 (1.001-1.035); Urine Urobilinogen < 2.0 EU/DL (0.2-1.0)
[2020-12-22] MEDS ORDERED: ALBUTEROL NEB SOLN 5 MG/ML 20 ML/BOTTLE CONT NEB SCH (21:30)
[2020-12-22 21:34] LABS: INR 1.2; PT Patient Result 12.9 SECS (10.5-12.0); Partial Thromboplastin Time 22.1 SECS (23.9-33.8)
[2020-12-22 21:40] LABS: Basophils % 0.5 % (0.0-0.8); Eosinophils # 0.1 10*3/uL (0.0-0.87); Eosinophils % 1.4 % (0.00-10.9); Hematocrit 31.7 VOL% (35.7-47.0); Hemoglobin 10.4 GM/DL (12.0-16.0); Immature Granulocytes % 0.4 %; Immature Granulocytes Absolute 0.03 #; Lymphocytes # 1.5 10*3/uL (1.4-4.0); Lymphocytes % 17.7 % (21.3-54.2); Mean Corpuscular HGB Conc 32.8 GM/DL (32-36); Mean Corpuscular Volume 76.6 FL (87-102); Mean Platelet Volume 11.7 FL (9.6-12.0); Monocytes % 8.2 % (1.7-12.7); NRBC # 0.02 10*3/uL; Neutrophils % 71.8 % (38.7-73.9); Platelet Count 159 T/CUMM (130-400); Red Blood Count 4.14 MC/CUMM (3.8-5.5); Red Cell Distribution Width 18.6 % (9.3-17.3); White Blood Count 8.3 T/CUMM (4-12)
[2020-12-22 21:48] LABS: Albumin 2.8 G/DL (3.4-5.0); Bilirubin,Total 0.6 MG/DL (0.2-1.0); Calcium 8.3 MG/DL (8.5-10.1); Potassium 4.9 MMOL/L (3.5-5.1); Total Protein 7.1 G/DL (6.4-8.2)
[2020-12-22 21:51] LABS: Barbiturates Screen,Urine Negative (Negative); Benzodiazepines Screen,Urine Negative (Negative); Cannabinoid Screen,Urine Negative (Negative); Opiate Screen,Urine Negative (Negative); Phencyclidine Screen,Urine Negative (Negative)
[2020-12-22] MEDS ORDERED: ACETAMINOPHEN 325 MG TABLET PO PRN (22:15)
[2020-12-22] MEDS ORDERED: MAGNESIUM SULF RIDER 2 GM/50 ML PREMIX IV PRN (22:15)
[2020-12-22] MEDS ORDERED: hydrALAZINE 20 MG/1 ML VIAL IV PRN (22:15)
[2020-12-22] MEDS ORDERED: MAGNESIUM SULF RIDER 4 GM/100 ML PREMIX IV PRN (22:15)
[2020-12-22] MEDS ORDERED: GLUCAGON 1 MG VIAL IM PRN (22:15)
[2020-12-22] MEDS ORDERED: DEXTROSE 50% 25 GM/50 ML VIAL IV PRN (22:15)
[2020-12-22] MEDS ORDERED: ONDANSETRON 4 MG/2 ML VIAL IV PRN (22:15)
[2020-12-22] MEDS ORDERED: MORPHINE 4 MG/1 ML VIAL IV PRN (22:15)
[2020-12-22] MEDS ORDERED: ALBUTEROL 1.25 MG/3 ML NEB RESP TX PRN (22:26)
[2020-12-22] MEDS ORDERED: tiZANidine 4 MG TABLET PO PRN (22:26)
[2020-12-22] MEDS ORDERED: traZODone 50 MG TABLET PO PRN (22:26)
[2020-12-23] MEDS ORDERED: LEVALBUTEROL 1.25 MG/3 ML NEB RESP TX SCH (01:00)
[2020-12-23] MEDS: NITROGLYCERIN 2% OINT 1 INCH/GM PACK TOP SCH ×4 (02:00→18:10)
[2020-12-23] MEDS: LEVALBUTEROL 1.25 MG/3 ML NEB RESP TX SCH ×6 (02:15→23:28)
[2020-12-23 07:33] LABS: Basophils % 0.1 % (0.0-0.8); Hematocrit 30.7 VOL% (35.7-47.0); Hemoglobin 10.2 GM/DL (12.0-16.0); Immature Granulocytes % 0.6 %; Immature Granulocytes Absolute 0.05 #; Lymphocytes # 0.1 10*3/uL (1.4-4.0); Lymphocytes % 1.1 % (21.3-54.2); Mean Corpuscular HGB Conc 33.2 GM/DL (32-36); Mean Corpuscular Volume 76.4 FL (87-102); Mean Platelet Volume 10.8 FL (9.6-12.0); Monocytes % 1.1 % (1.7-12.7); NRBC # 0.02 10*3/uL; Neutrophils % 97.1 % (38.7-73.9); Platelet Count 163 T/CUMM (130-400); Red Blood Count 4.02 MC/CUMM (3.8-5.5); Red Cell Distribution Width 18.3 % (9.3-17.3); White Blood Count 8.3 T/CUMM (4-12)
[2020-12-23 08:01] LABS: Lymphocytes 1 % (20-55); Segmented Neutrophils 97 % (50-85); Total Cells Counted 100
[2020-12-23 08:02] LABS: Hypochromasia 2+; Microcytosis 1+
[2020-12-23 08:03] LABS: Albumin 2.8 G/DL (3.4-5.0); Bilirubin,Total 0.7 MG/DL (0.2-1.0); Calcium 8.3 MG/DL (8.5-10.1); Osmolality,Calculated 286.2 MOS/KG (273-304); Ovalocytes Few; Polychromasia Few; Potassium 4.5 MMOL/L (3.5-5.1); Total Protein 6.8 G/DL (6.4-8.2)
[2020-12-23 08:04] LABS: Acanthocytes Few; Platelet Estimate Adequate; Target Cells Few
[2020-12-23] MEDS ORDERED: ENALAPRIL 10 MG TABLET PO SCH (09:00)
[2020-12-23] MEDS ORDERED: amLODIPine 5 MG TABLET PO SCH (09:00)
[2020-12-23] MEDS: MULTIVITAMIN (CENTRUM) TABLET PO SCH (09:05)
[2020-12-23] MEDS: FOLIC ACID 1 MG TABLET PO SCH (09:05)
[2020-12-23] MEDS: GABAPENTIN 300 MG CAPSULE PO SCH ×2 (09:05→20:25)
[2020-12-23] MEDS: METOPROLOL TARTRATE 50 MG TABLET PO SCH ×2 (09:05→20:25)
[2020-12-23] MEDS: FUROSEMIDE 40 MG/4 ML VIAL IV SCH ×2 (09:05→16:13)
[2020-12-23] MEDS: ENOXAPARIN 30 MG/0.3 ML SYRINGE SUBCUT SCH (09:05)
[2020-12-23] MEDS: MONTELUKAST 10 MG TABLET PO SCH (09:06)
[2020-12-23] MEDS: PANTOPRAZOLE 40 MG TABLET PO SCH (09:06)
[2020-12-23] MEDS: SODIUM BICARBONATE 650 MG TABLET PO SCH ×2 (09:06→20:25)
[2020-12-23] MEDS: BUDESONIDE/FORMOTEROL 160-4.5 INHALER 6 GM INH SCH ×2 (09:06→20:25)
[2020-12-23] MEDS: THIAMINE 100 MG TABLET PO SCH (09:06)
[2020-12-23] MEDS ORDERED: amLODIPine 5 MG TABLET PO ONE (09:39)
[2020-12-23] MEDS: hydrALAZINE 25 MG TABLET PO SCH ×2 (14:54→20:25)
[2020-12-24] MEDS: NITROGLYCERIN 2% OINT 1 INCH/GM PACK TOP SCH ×4 (01:07→17:54)
[2020-12-24] MEDS: LEVALBUTEROL 1.25 MG/3 ML NEB RESP TX SCH ×5 (02:28→19:48)
[2020-12-24 04:36] LABS: Basophils % 0.2 % (0.0-0.8); Hematocrit 30.4 VOL% (35.7-47.0); Hemoglobin 9.8 GM/DL (12.0-16.0); Immature Granulocytes % 0.5 %; Immature Granulocytes Absolute 0.06 #; Lymphocytes # 1.2 10*3/uL (1.4-4.0); Mean Corpuscular HGB Conc 32.2 GM/DL (32-36); Mean Corpuscular Volume 77.2 FL (87-102); Mean Platelet Volume 10.7 FL (9.6-12.0); Monocytes % 6.6 % (1.7-12.7); NRBC # 0.09 10*3/uL; Neutrophils % 83.7 % (38.7-73.9); Platelet Count 162 T/CUMM (130-400); Red Blood Count 3.94 MC/CUMM (3.8-5.5); Red Cell Distribution Width 18.4 % (9.3-17.3); White Blood Count 13.1 T/CUMM (4-12)
[2020-12-24 05:01] LABS: Calcium 8.1 MG/DL (8.5-10.1); Osmolality,Calculated 288.1 MOS/KG (273-304)
[2020-12-24 05:11] LABS: Hypochromasia 1+; Macrocytosis Slight; Platelet Estimate Adequate; Polychromasia Slight; Target Cells Few
[2020-12-24] MEDS: FUROSEMIDE 40 MG/4 ML VIAL IV SCH ×2 (08:05→16:15)
[2020-12-24] MEDS: LEVOFLOXACIN INJ 250 MG/50 ML PREMIX IV SCH (08:05)
[2020-12-24] MEDS: MULTIVITAMIN (CENTRUM) TABLET PO SCH (09:08)
[2020-12-24] MEDS: hydrALAZINE 25 MG TABLET PO SCH ×3 (09:08→20:05)
[2020-12-24] MEDS: amLODIPine 10 MG TABLET PO SCH (09:09)
[2020-12-24] MEDS: GABAPENTIN 300 MG CAPSULE PO SCH ×2 (09:09→20:05)
[2020-12-24] MEDS: ENOXAPARIN 30 MG/0.3 ML SYRINGE SUBCUT SCH (09:09)
[2020-12-24] MEDS: FOLIC ACID 1 MG TABLET PO SCH (09:09)
[2020-12-24] MEDS: MONTELUKAST 10 MG TABLET PO SCH (09:09)
[2020-12-24] MEDS: THIAMINE 100 MG TABLET PO SCH (09:09)
[2020-12-24] MEDS: PANTOPRAZOLE 40 MG TABLET PO SCH (09:09)
[2020-12-24] MEDS: BUDESONIDE/FORMOTEROL 160-4.5 INHALER 6 GM INH SCH ×2 (09:09→20:05)
[2020-12-24] MEDS: SODIUM BICARBONATE 650 MG TABLET PO SCH ×2 (09:09→20:05)
[2020-12-24] MEDS: METOPROLOL TARTRATE 50 MG TABLET PO SCH ×2 (09:09→20:05)
[2020-12-24] MEDS ORDERED: VANCOMYCIN INJ 1,750 MG in SODIUM CHLORIDE 0.9% 500 ML IV ONE (11:00)
[2020-12-24] MEDS: IPRATROPIUM 500 MCG/2.5 ML NEB RESP TX SCH ×2 (14:33→19:48)
[2020-12-25] MEDS: LEVALBUTEROL 1.25 MG/3 ML NEB RESP TX SCH ×6 (00:12→18:13)
[2020-12-25] MEDS: IPRATROPIUM 500 MCG/2.5 ML NEB RESP TX SCH ×4 (00:12→18:13)
[2020-12-25] MEDS: NITROGLYCERIN 2% OINT 1 INCH/GM PACK TOP SCH ×2 (01:33→06:22)
[2020-12-25 04:11] LABS: Basophils % 0.3 % (0.0-0.8); Eosinophils # 0.1 10*3/uL (0.0-0.87); Eosinophils % 0.8 % (0.00-10.9); Hematocrit 29.7 VOL% (35.7-47.0); Hemoglobin 9.8 GM/DL (12.0-16.0); Immature Granulocytes % 0.6 %; Immature Granulocytes Absolute 0.06 #; Lymphocytes # 1.4 10*3/uL (1.4-4.0); Lymphocytes % 14.2 % (21.3-54.2); Mean Corpuscular Volume 77.1 FL (87-102); Mean Platelet Volume 10.6 FL (9.6-12.0); Monocytes % 8.7 % (1.7-12.7); NRBC # 0.06 10*3/uL; Neutrophils % 75.4 % (38.7-73.9); Platelet Count 147 T/CUMM (130-400); Red Blood Count 3.85 MC/CUMM (3.8-5.5); Red Cell Distribution Width 19.1 % (9.3-17.3); White Blood Count 9.6 T/CUMM (4-12)
[2020-12-25 04:39] LABS: Calcium 7.4 MG/DL (8.5-10.1); Potassium 5.3 MMOL/L (3.5-5.1)
[2020-12-25] MEDS ORDERED: SODIUM POLYSTYRENE SULFATE 15 GM/60 ML BOTTLE PO STA (07:02)
[2020-12-25] MEDS: GABAPENTIN 300 MG CAPSULE PO SCH ×2 (08:08→22:24)
[2020-12-25] MEDS: MONTELUKAST 10 MG TABLET PO SCH (08:09)
[2020-12-25] MEDS: METOPROLOL TARTRATE 50 MG TABLET PO SCH ×2 (08:09→22:24)
[2020-12-25] MEDS: PANTOPRAZOLE 40 MG TABLET PO SCH (08:09)
[2020-12-25] MEDS: THIAMINE 100 MG TABLET PO SCH (08:09)
[2020-12-25] MEDS: ENOXAPARIN 30 MG/0.3 ML SYRINGE SUBCUT SCH (08:10)
[2020-12-25] MEDS: SODIUM BICARBONATE 650 MG TABLET PO SCH ×2 (08:10→22:24)
[2020-12-25] MEDS: MULTIVITAMIN (CENTRUM) TABLET PO SCH (08:10)
[2020-12-25] MEDS: amLODIPine 10 MG TABLET PO SCH (08:10)
[2020-12-25] MEDS: FOLIC ACID 1 MG TABLET PO SCH (08:10)
[2020-12-25] MEDS: LEVOFLOXACIN INJ 250 MG/50 ML PREMIX IV SCH (08:11)
[2020-12-25] MEDS: FUROSEMIDE 40 MG/4 ML VIAL IV SCH (08:12)
[2020-12-25] MEDS: BUDESONIDE/FORMOTEROL 160-4.5 INHALER 6 GM INH SCH ×2 (15:59→22:24)
[2020-12-26] MEDS: LEVALBUTEROL 1.25 MG/3 ML NEB RESP TX SCH ×2 (00:54→07:22)
[2020-12-26] MEDS: IPRATROPIUM 500 MCG/2.5 ML NEB RESP TX SCH ×2 (00:54→07:22)
[2020-12-26 06:11] LABS: Basophils % 0.4 % (0.0-0.8); Eosinophils # 0.1 10*3/uL (0.0-0.87); Eosinophils % 1.5 % (0.00-10.9); Hematocrit 31.1 VOL% (35.7-47.0); Hemoglobin 9.9 GM/DL (12.0-16.0); Immature Granulocytes % 0.4 %; Immature Granulocytes Absolute 0.03 #; Lymphocytes # 2.3 10*3/uL (1.4-4.0); Lymphocytes % 28.5 % (21.3-54.2); Mean Corpuscular HGB Conc 31.8 GM/DL (32-36); Mean Corpuscular Volume 78.5 FL (87-102); Mean Platelet Volume 10.6 FL (9.6-12.0); NRBC # 0.04 10*3/uL; Neutrophils % 59.2 % (38.7-73.9); Platelet Count 169 T/CUMM (130-400); Red Blood Count 3.96 MC/CUMM (3.8-5.5); Red Cell Distribution Width 19.1 % (9.3-17.3); White Blood Count 8.1 T/CUMM (4-12)
[2020-12-26 06:27] LABS: Calcium 7.9 MG/DL (8.5-10.1); Potassium 4.9 MMOL/L (3.5-5.1)
[2020-12-26 08:38] VITALS: BP 147/97
[2020-12-26] MEDS: amLODIPine 10 MG TABLET PO SCH (08:58)
[2020-12-26] MEDS: GABAPENTIN 300 MG CAPSULE PO SCH (08:58)
[2020-12-26] MEDS: hydrALAZINE 25 MG TABLET PO SCH (08:58)
[2020-12-26] MEDS: SODIUM BICARBONATE 650 MG TABLET PO SCH (08:58)
[2020-12-26] MEDS: FOLIC ACID 1 MG TABLET PO SCH (08:59)
[2020-12-26] MEDS: THIAMINE 100 MG TABLET PO SCH (08:59)
[2020-12-26] MEDS: MONTELUKAST 10 MG TABLET PO SCH (08:59)
[2020-12-26] MEDS: METOPROLOL TARTRATE 50 MG TABLET PO SCH (08:59)
[2020-12-26] MEDS: MULTIVITAMIN (CENTRUM) TABLET PO SCH (08:59)
[2020-12-26] MEDS: ENOXAPARIN 30 MG/0.3 ML SYRINGE SUBCUT SCH (09:00)
[2020-12-26] MEDS: LEVOFLOXACIN INJ 250 MG/50 ML PREMIX IV SCH (09:00)
[2020-12-26] MEDS: PANTOPRAZOLE 40 MG TABLET PO SCH (09:03)
[2020-12-26] MEDS: BUDESONIDE/FORMOTEROL 160-4.5 INHALER 6 GM INH SCH (09:04)
[2020-12-27] MEDS ORDERED: LEVOTHYROXINE 25 MCG TABLET PO SCH (06:30)
== END 2020-12-26 12:20 | disposition home or self-care (01) | DRG 194 ==
LOC: EDUNIT# → EDBD → N.ED 20:48 → N.EDINP 20:48 → N.ICU 23:32 → N.TELES 12-25 18:07
PROVIDERS: ADMIT Internal Medicine; ATTEND Internal Medicine

== ENCOUNTER 2021-01-22 05:59 | Observation (INO) ==
[2021-01-22 06:32] LABS: Basophils # 0.1 10*3/uL (0.0-0.2); Basophils % 0.6 % (0.0-0.8); Eosinophils # 0.3 10*3/uL (0.0-0.87); Eosinophils % 3.5 % (0.00-10.9); Hematocrit 33.4 VOL% (35.7-47.0); Hemoglobin 10.9 GM/DL (12.0-16.0); Immature Granulocytes % 0.4 %; Immature Granulocytes Absolute 0.03 #; Lymphocytes # 1.9 10*3/uL (1.4-4.0); Lymphocytes % 23.1 % (21.3-54.2); Mean Corpuscular HGB Conc 32.6 GM/DL (32-36); Mean Corpuscular Volume 74.6 FL (87-102); Mean Platelet Volume 10.6 FL (9.6-12.0); Monocytes % 9.5 % (1.7-12.7); Neutrophils % 62.9 % (38.7-73.9); Platelet Count 305 T/CUMM (130-400); Red Blood Count 4.48 MC/CUMM (3.8-5.5); Red Cell Distribution Width 20.2 % (9.3-17.3); White Blood Count 8.2 T/CUMM (4-12)
[2021-01-22] MEDS ORDERED: FUROSEMIDE 40 MG/4 ML VIAL ONE (06:33)
[2021-01-22] MEDS ORDERED: methylPREDNISolone SOD SUC 125 MG/2 ML VIAL IV STA (06:33)
[2021-01-22] MEDS ORDERED: FUROSEMIDE 100 MG/10 ML VIAL IV STA (06:33)
[2021-01-22] MEDS ORDERED: MAGNESIUM SULF RIDER 2 GM/50 ML PREMIX IV STA (06:34)
[2021-01-22 07:00] LABS: Albumin 2.9 G/DL (3.4-5.0); Bilirubin,Total 0.5 MG/DL (0.20-1.00); Calcium 8.6 MG/DL (8.5-10.1); Osmolality,Calculated 289.5 MOS/KG (273-304); Potassium 4.5 MMOL/L (3.5-5.1); Total Protein 7.2 G/DL (6.4-8.2)
[2021-01-22] MEDS ORDERED: ALBUTEROL NEB SOLN 5 MG/ML 20 ML/BOTTLE CONT NEB SCH (07:00)
[2021-01-22] MEDS ORDERED: DEXTROSE 50% 25 GM/50 ML VIAL IV PRN (08:20)
[2021-01-22] MEDS ORDERED: BISACODYL 5 MG TABLET PO PRN (08:20)
[2021-01-22] MEDS ORDERED: ACETAMINOPHEN 325 MG TABLET PO PRN (08:20)
[2021-01-22] MEDS ORDERED: NICOTINE 21 MG/24 HR PATCH TRANSDERM PRN (08:20)
[2021-01-22] MEDS ORDERED: ONDANSETRON 4 MG/2 ML VIAL IV PRN (08:20)
[2021-01-22] MEDS ORDERED: guaiFENesin/DM ER 600-30 MG TABLET PO PRN (08:20)
[2021-01-22] MEDS ORDERED: diphenhydrAMINE CAP 25 MG CAPSULE PO PRN (08:20)
[2021-01-22] MEDS ORDERED: GLUCAGON 1 MG VIAL IM PRN (08:20)
[2021-01-22] MEDS ORDERED: hydrALAZINE 20 MG/1 ML VIAL IV PRN (08:23)
[2021-01-22] MEDS: ENOXAPARIN 30 MG/0.3 ML SYRINGE SUBCUT SCH (09:23)
[2021-01-22] MEDS: hydrALAZINE 25 MG TABLET PO SCH ×3 (09:45→21:55)
[2021-01-22] MEDS: THIAMINE 100 MG TABLET PO SCH (09:45)
[2021-01-22] MEDS: MULTIVITAMIN (BEROCCA) TABLET PO SCH (09:45)
[2021-01-22] MEDS: FOLIC ACID 1 MG TABLET PO SCH (09:45)
[2021-01-22] MEDS: SODIUM BICARBONATE 650 MG TABLET PO SCH ×2 (09:45→21:55)
[2021-01-22] MEDS: amLODIPine 10 MG TABLET PO SCH (09:45)
[2021-01-22] MEDS: MONTELUKAST 10 MG TABLET PO SCH (09:45)
[2021-01-22] MEDS: GABAPENTIN 100 MG CAPSULE PO SCH ×2 (09:45→21:55)
[2021-01-22 10:46] LABS: Barbiturates Screen,Urine Negative (Negative); Benzodiazepines Screen,Urine Negative (Negative); Cannabinoid Screen,Urine Negative (Negative); Opiate Screen,Urine Negative (Negative); Phencyclidine Screen,Urine Negative (Negative)
[2021-01-22 15:41] LABS: Bilirubin,Urine Negative (Negative); Blood, Urine Small mg/dL (Negative); Glucose,Urine (UA) Negative (Negative); Ketones,Urine Negative (Negative); Mucus,Urine Occasional /LPF (Occasional); Nitrite,Urine Negative (Negative); Protein,Urine 100 MG/DL; RBC,Urine 7 /HPF (0-4); Squamous Epithelial Cell,Urine Occasional /HPF (0-10); Urine Appearance Slightly Hazy (Clear); Urine Color Yellow (Yellow); Urine Specific Gravity 1.009 (1.001-1.035); Urine Urobilinogen < 2.0 EU/DL (0.2-1.0)
[2021-01-22] MEDS ORDERED: FUROSEMIDE 40 MG/4 ML VIAL IV SCH (16:00)
[2021-01-22] MEDS ORDERED: FUROSEMIDE 80 MG TABLET PO SCH (16:00)
[2021-01-22] MEDS ORDERED: FUROSEMIDE 40 MG TABLET PO SCH (16:00)
[2021-01-22] MEDS: ALBUTEROL/IPRATROPIUM 3 ML NEB RESP TX SCH ×2 (17:03→19:35)
[2021-01-22] MEDS: BUDESONIDE/FORMOTEROL 160-4.5 INHALER 6 GM INH SCH (21:58)
[2021-01-23 06:22] LABS: Basophils % 0.2 % (0.0-0.8); Hematocrit 27.2 VOL% (35.7-47.0); Hemoglobin 9.3 GM/DL (12.0-16.0); Immature Granulocytes % 0.4 %; Immature Granulocytes Absolute 0.04 #; Lymphocytes # 1.6 10*3/uL (1.4-4.0); Lymphocytes % 16.5 % (21.3-54.2); Mean Corpuscular HGB Conc 34.2 GM/DL (32-36); Mean Corpuscular Volume 74.3 FL (87-102); Mean Platelet Volume 10.5 FL (9.6-12.0); Monocytes % 11.4 % (1.7-12.7); NRBC # 0.02 10*3/uL; Neutrophils % 71.5 % (38.7-73.9); Platelet Count 290 T/CUMM (130-400); Red Blood Count 3.66 MC/CUMM (3.8-5.5); Red Cell Distribution Width 19.9 % (9.3-17.3); White Blood Count 9.9 T/CUMM (4-12)
[2021-01-23 06:54] LABS: Calcium 8.6 MG/DL (8.5-10.1); Osmolality,Calculated 293.5 MOS/KG (273-304); Potassium 4.6 MMOL/L (3.5-5.1)
[2021-01-23] MEDS ORDERED: traZODone 50 MG TABLET PO PRN (07:11)
[2021-01-23] MEDS: ALBUTEROL/IPRATROPIUM 3 ML NEB RESP TX SCH (07:37)
[2021-01-23 08:10] VITALS: BP 171/98
[2021-01-23] MEDS: ENOXAPARIN 30 MG/0.3 ML SYRINGE SUBCUT SCH (08:49)
[2021-01-23] MEDS: MULTIVITAMIN (BEROCCA) TABLET PO SCH (08:50)
[2021-01-23] MEDS: GABAPENTIN 100 MG CAPSULE PO SCH (08:50)
[2021-01-23] MEDS: SODIUM BICARBONATE 650 MG TABLET PO SCH (08:50)
[2021-01-23] MEDS: MONTELUKAST 10 MG TABLET PO SCH (08:51)
[2021-01-23] MEDS: amLODIPine 10 MG TABLET PO SCH (08:51)
[2021-01-23] MEDS: FOLIC ACID 1 MG TABLET PO SCH (08:51)
[2021-01-23] MEDS: THIAMINE 100 MG TABLET PO SCH (08:51)
[2021-01-23] MEDS: BUDESONIDE/FORMOTEROL 160-4.5 INHALER 6 GM INH SCH (08:57)
[2021-01-23] MEDS ORDERED: LACTULOSE 20 GM/30 ML UDCUP PO SCH (09:00)
[2021-01-23] MEDS ORDERED: BACLOFEN 10 MG TABLET PO SCH (09:00)
[2021-01-23] MEDS ORDERED: METOPROLOL TARTRATE 50 MG TABLET PO SCH (09:00)
[2021-01-23] MEDS ORDERED: FUROSEMIDE 40 MG TABLET PO SCH (09:00)
[2021-01-24] MEDS ORDERED: LEVOTHYROXINE 25 MCG TABLET PO SCH (06:30)
== END 2021-01-23 11:28 | disposition home or self-care (01) ==
LOC: EDBD → EDUNIT# → N.ED 05:59 → N.EDINP 05:59 → N.5E 14:25
PROVIDERS: ADMIT Internal Medicine; ATTEND Internal Medicine

== ENCOUNTER 2021-02-15 23:21 | Inpatient (IN) ==
[2021-02-15] MEDS ORDERED: methylPREDNISolone SOD SUC 125 MG/2 ML VIAL IV STA (23:39)
[2021-02-15] MEDS ORDERED: FUROSEMIDE 100 MG/10 ML VIAL IV STA (23:39)
[2021-02-15] MEDS ORDERED: ALBUTEROL NEB SOLN 5 MG/ML 20 ML/BOTTLE CONT NEB SCH (23:45)
[2021-02-16] MEDS ORDERED: hydrALAZINE 20 MG/1 ML VIAL IV STA ×3 (00:09→02:27)
[2021-02-16] MEDS ORDERED: ALBUTEROL 2.5 MG/3 ML NEB RESP TX STA ×2 (00:10→01:35)
[2021-02-16 00:16] LABS: ABG Base Excess -10.5 MMOL/L (-2.5-2.5); ABG HCO3 15.5 MMOL/L (20-26); ABG Oxygen Saturation 51.2 % (95-100); ABG PCO2 34.6 MM HG (35-48); ABG PH 7.269 (7.35-7.45); ABG TCO2 16.6 MMOL/L (23-27)
[2021-02-16 00:18] LABS: ABG PO2 33.5 MM HG (80-95)
[2021-02-16 00:38] LABS: Basophils % 0.4 % (0.0-0.8); Eosinophils # 0.1 10*3/uL (0.0-0.87); Eosinophils % 0.6 % (0.00-10.9); Hematocrit 30.8 VOL% (35.7-47.0); Hemoglobin 9.7 GM/DL (12.0-16.0); Immature Granulocytes % 1.2 %; Immature Granulocytes Absolute 0.13 #; Lymphocytes # 1.2 10*3/uL (1.4-4.0); Lymphocytes % 10.9 % (21.3-54.2); Mean Corpuscular HGB Conc 31.5 GM/DL (32-36); Mean Corpuscular Volume 79.2 FL (87-102); Mean Platelet Volume 10.2 FL (9.6-12.0); Monocytes % 8.9 % (1.7-12.7); NRBC # 0.06 10*3/uL; Platelet Count 213 T/CUMM (130-400); Red Blood Count 3.89 MC/CUMM (3.8-5.5); Red Cell Distribution Width 20.6 % (9.3-17.3)
[2021-02-16 00:39] LABS: Bilirubin,Total 0.4 MG/DL (0.20-1.00); Calcium 8.2 MG/DL (8.5-10.1); Osmolality,Calculated 296.7 MOS/KG (273-304); Potassium 4.5 MMOL/L (3.5-5.1); Total Protein 7.3 G/DL (6.4-8.2)
[2021-02-16 00:46] LABS: INR 1.2; PT Patient Result 13.4 SECS (10.5-12.0)
[2021-02-16 01:01] LABS: Bilirubin,Urine Negative (Negative); Blood, Urine Small mg/dL (Negative); Glucose,Urine (UA) Negative (Negative); Hyaline Casts,Urine 6 /LPF (0-3); Ketones,Urine Negative (Negative); Mucus,Urine Occasional /LPF (Occasional); Nitrite,Urine Negative (Negative); Protein,Urine >=500 MG/DL; RBC,Urine 10 /HPF (0-4); Squamous Epithelial Cell,Urine Occasional /HPF (0-10); Urine Appearance CLEAR (Clear); Urine Color Yellow (Yellow); Urine Specific Gravity 1.015 (1.001-1.035); Urine Urobilinogen < 2.0 EU/DL (0.2-1.0)
[2021-02-16 01:24] LABS: ABG Base Excess -9.9 MMOL/L (-2.5-2.5); ABG HCO3 14.2 MMOL/L (20-26); ABG PCO2 26.2 MM HG (35-48); ABG PH 7.352 (7.35-7.45); ABG PO2 49.1 MM HG (80-95)
[2021-02-16 02:14] LABS: ABG Base Excess -8.8 MMOL/L (-2.5-2.5); ABG HCO3 17.3 MMOL/L (20-26); ABG Oxygen Saturation 96.7 % (95-100); ABG PCO2 26.3 MM HG (35-48); ABG PH 7.371 (7.35-7.45); ABG PO2 84.9 MM HG (80-95); ABG TCO2 13.9 MMOL/L (23-27)
[2021-02-16] MEDS ORDERED: DEXTROSE 50% 25 GM/50 ML VIAL IV PRN (02:18)
[2021-02-16] MEDS ORDERED: GLUCAGON 1 MG VIAL IM PRN (02:18)
[2021-02-16] MEDS ORDERED: MORPHINE 2 MG/1 ML SYRINGE IV PRN (02:19)
[2021-02-16] MEDS ORDERED: ACETAMINOPHEN 325 MG TABLET PO PRN (02:19)
[2021-02-16] MEDS ORDERED: hydrALAZINE 20 MG/1 ML VIAL IV PRN (02:26)
[2021-02-16 02:40] LABS: Barbiturates Screen,Urine Negative (Negative); Benzodiazepines Screen,Urine Negative (Negative); Cannabinoid Screen,Urine Negative (Negative); Opiate Screen,Urine Negative (Negative); Phencyclidine Screen,Urine Negative (Negative)
[2021-02-16 06:26] LABS: Bilirubin,Total 0.6 MG/DL (0.20-1.00); Calcium 8.6 MG/DL (8.5-10.1); Osmolality,Calculated 298.5 MOS/KG (273-304); Potassium 4.2 MMOL/L (3.5-5.1); Total Protein 7.7 G/DL (6.4-8.2)
[2021-02-16] MEDS: ALBUTEROL/IPRATROPIUM 3 ML NEB RESP TX SCH ×4 (07:07→23:55)
[2021-02-16] MEDS ORDERED: FUROSEMIDE 40 MG/4 ML VIAL IV SCH (08:00)
[2021-02-16] MEDS: methylPREDNISolone SOD SUC 40 MG/1 ML VIAL IV SCH ×2 (08:38→15:54)
[2021-02-16] MEDS: ENOXAPARIN 30 MG/0.3 ML SYRINGE SUBCUT SCH (08:38)
[2021-02-16] MEDS: MULTIVITAMIN (CENTRUM) TABLET PO SCH (08:38)
[2021-02-16] MEDS: METOPROLOL TARTRATE 50 MG TABLET PO SCH ×2 (08:38→20:13)
[2021-02-16] MEDS: SODIUM BICARBONATE 650 MG TABLET PO SCH ×3 (08:39→20:13)
[2021-02-16] MEDS: BUDESONIDE/FORMOTEROL 160-4.5 INHALER 6 GM INH SCH ×2 (08:39→20:15)
[2021-02-16] MEDS: GABAPENTIN 300 MG CAPSULE PO SCH ×2 (08:39→20:13)
[2021-02-16] MEDS: amLODIPine 10 MG TABLET PO SCH (08:39)
[2021-02-16] MEDS: MONTELUKAST 10 MG TABLET PO SCH (08:39)
[2021-02-16] MEDS: PANTOPRAZOLE 40 MG TABLET PO SCH (08:39)
[2021-02-16] MEDS ORDERED: POLYETHYLENE GLYCOL POWDER 17 GM PACK PO PRN (10:12)
[2021-02-16] MEDS: FUROSEMIDE 40 MG/4 ML VIAL IV SCH (15:51)
[2021-02-16] MEDS ORDERED: BISACODYL 5 MG TABLET PO PRN (21:22)
[2021-02-17] MEDS: methylPREDNISolone SOD SUC 40 MG/1 ML VIAL IV SCH ×3 (00:15→21:36)
[2021-02-17 05:34] LABS: Basophils % 0.1 % (0.0-0.8); Hematocrit 30.5 VOL% (35.7-47.0); Hemoglobin 9.5 GM/DL (12.0-16.0); Immature Granulocytes % 0.5 %; Immature Granulocytes Absolute 0.06 #; Lymphocytes % 8.7 % (21.3-54.2); Mean Corpuscular HGB Conc 31.1 GM/DL (32-36); Mean Corpuscular Volume 78.8 FL (87-102); Mean Platelet Volume 10.4 FL (9.6-12.0); Monocytes % 2.5 % (1.7-12.7); NRBC # 0.09 10*3/uL; Neutrophils % 88.2 % (38.7-73.9); Platelet Count 233 T/CUMM (130-400); Red Blood Count 3.87 MC/CUMM (3.8-5.5); Red Cell Distribution Width 20.7 % (9.3-17.3); White Blood Count 10.9 T/CUMM (4-12)
[2021-02-17 06:37] LABS: Albumin 2.7 G/DL (3.4-5.0); Bilirubin,Total 0.4 MG/DL (0.20-1.00); Calcium 8.3 MG/DL (8.5-10.1); Osmolality,Calculated 299.7 MOS/KG (273-304); Potassium 4.6 MMOL/L (3.5-5.1); Total Protein 6.9 G/DL (6.4-8.2)
[2021-02-17] MEDS: ALBUTEROL/IPRATROPIUM 3 ML NEB RESP TX SCH ×3 (07:35→19:38)
[2021-02-17] MEDS: FUROSEMIDE 40 MG/4 ML VIAL IV SCH ×2 (09:37→16:56)
[2021-02-17] MEDS: METOPROLOL TARTRATE 50 MG TABLET PO SCH ×2 (09:38→21:37)
[2021-02-17] MEDS: MULTIVITAMIN (CENTRUM) TABLET PO SCH (09:38)
[2021-02-17] MEDS: SODIUM BICARBONATE 650 MG TABLET PO SCH ×3 (09:39→21:37)
[2021-02-17] MEDS: MONTELUKAST 10 MG TABLET PO SCH (09:39)
[2021-02-17] MEDS: GABAPENTIN 300 MG CAPSULE PO SCH ×2 (09:39→21:37)
[2021-02-17] MEDS: PANTOPRAZOLE 40 MG TABLET PO SCH (09:40)
[2021-02-17] MEDS: ENOXAPARIN 30 MG/0.3 ML SYRINGE SUBCUT SCH (09:41)
[2021-02-17] MEDS: amLODIPine 10 MG TABLET PO SCH (09:46)
[2021-02-17] MEDS: BUDESONIDE/FORMOTEROL 160-4.5 INHALER 6 GM INH SCH ×2 (09:47→21:37)
[2021-02-17] MEDS ORDERED: LACTULOSE 20 GM/30 ML UDCUP PO PRN (11:39)
[2021-02-17] MEDS: metOLazone 5 MG TABLET PO SCH (16:56)
[2021-02-18] MEDS: ALBUTEROL/IPRATROPIUM 3 ML NEB RESP TX SCH ×4 (00:52→20:30)
[2021-02-18 06:49] LABS: Basophils % 0.1 % (0.0-0.8); Hematocrit 30.8 VOL% (35.7-47.0); Hemoglobin 9.6 GM/DL (12.0-16.0); Immature Granulocytes % 0.5 %; Immature Granulocytes Absolute 0.07 #; Lymphocytes # 0.7 10*3/uL (1.4-4.0); Lymphocytes % 5.4 % (21.3-54.2); Mean Corpuscular HGB Conc 31.2 GM/DL (32-36); Mean Corpuscular Volume 79.8 FL (87-102); Mean Platelet Volume 10.5 FL (9.6-12.0); Monocytes % 3.5 % (1.7-12.7); NRBC # 0.17 10*3/uL; Neutrophils % 90.5 % (38.7-73.9); Platelet Count 254 T/CUMM (130-400); Red Blood Count 3.86 MC/CUMM (3.8-5.5); Red Cell Distribution Width 20.9 % (9.3-17.3); White Blood Count 13.6 T/CUMM (4-12)
[2021-02-18 07:13] LABS: Albumin 2.8 G/DL (3.4-5.0); Bilirubin,Total 1.1 MG/DL (0.20-1.00); Calcium 8.4 MG/DL (8.5-10.1); Osmolality,Calculated 302.7 MOS/KG (273-304); Potassium 4.5 MMOL/L (3.5-5.1); Total Protein 7.2 G/DL (6.4-8.2)
[2021-02-18] MEDS: metOLazone 5 MG TABLET PO SCH ×2 (09:57→21:26)
[2021-02-18] MEDS: METOPROLOL TARTRATE 50 MG TABLET PO SCH ×2 (09:57→21:14)
[2021-02-18] MEDS: amLODIPine 10 MG TABLET PO SCH (09:57)
[2021-02-18] MEDS: GABAPENTIN 300 MG CAPSULE PO SCH ×2 (09:57→21:14)
[2021-02-18] MEDS: PANTOPRAZOLE 40 MG TABLET PO SCH (09:57)
[2021-02-18] MEDS: SODIUM BICARBONATE 650 MG TABLET PO SCH ×4 (09:57→21:13)
[2021-02-18] MEDS: MONTELUKAST 10 MG TABLET PO SCH (09:57)
[2021-02-18] MEDS: FUROSEMIDE 40 MG/4 ML VIAL IV SCH (09:58)
[2021-02-18] MEDS: methylPREDNISolone SOD SUC 40 MG/1 ML VIAL IV SCH ×2 (09:58→21:13)
[2021-02-18] MEDS: ENOXAPARIN 30 MG/0.3 ML SYRINGE SUBCUT SCH (09:59)
[2021-02-18] MEDS: BUDESONIDE/FORMOTEROL 160-4.5 INHALER 6 GM INH SCH ×2 (10:03→21:15)
[2021-02-18] MEDS: MULTIVITAMIN (CENTRUM) TABLET PO SCH (10:08)
[2021-02-18 14:40] LABS: Creatinine,Urine Random 101 MG/DL; Total Protein,Urine Random 62 MG/DL
[2021-02-18] MEDS: ONDANSETRON 4 MG/2 ML VIAL IV PRN (16:31)
[2021-02-18] MEDS: FUROSEMIDE 100 MG/10 ML VIAL IV SCH ×2 (16:34→17:23)
[2021-02-18] MEDS ORDERED: PROMETHAZINE 25 MG/1 ML VIAL IM PRN (17:08)
[2021-02-18] MEDS ORDERED: SIMETHICONE CHEW 125 MG TABLET PO PRN (17:09)
[2021-02-19 05:41] LABS: Basophils % 0.1 % (0.0-0.8); Hematocrit 32.5 VOL% (35.7-47.0); Hemoglobin 10.1 GM/DL (12.0-16.0); Immature Granulocytes % 0.6 %; Immature Granulocytes Absolute 0.08 #; Lymphocytes # 0.6 10*3/uL (1.4-4.0); Mean Corpuscular HGB Conc 31.1 GM/DL (32-36); Mean Corpuscular Volume 79.7 FL (87-102); Mean Platelet Volume 10.1 FL (9.6-12.0); Monocytes % 3.6 % (1.7-12.7); Neutrophils % 90.7 % (38.7-73.9); Platelet Count 259 T/CUMM (130-400); Red Blood Count 4.08 MC/CUMM (3.8-5.5); Red Cell Distribution Width 20.9 % (9.3-17.3); White Blood Count 12.9 T/CUMM (4-12)
[2021-02-19 06:02] LABS: Calcium 8.3 MG/DL (8.5-10.1); Osmolality,Calculated 312.4 MOS/KG (273-304); Potassium 4.8 MMOL/L (3.5-5.1)
[2021-02-19 06:03] LABS: Hypochromasia Slight; Lymphocytes 5 % (20-55); Microcytosis 1+; Nucleated Red Blood Cells 3 (0-5); Platelet Estimate Normal; Segmented Neutrophils 94 % (50-85); Total Cells Counted 100
[2021-02-19] MEDS: ALBUTEROL/IPRATROPIUM 3 ML NEB RESP TX SCH ×4 (07:30→20:26)
[2021-02-19] MEDS: ONDANSETRON 4 MG/2 ML VIAL IV PRN (07:46)
[2021-02-19] MEDS: METOPROLOL TARTRATE 50 MG TABLET PO SCH ×2 (10:38→20:04)
[2021-02-19] MEDS: MULTIVITAMIN (CENTRUM) TABLET PO SCH (10:38)
[2021-02-19] MEDS: ENOXAPARIN 30 MG/0.3 ML SYRINGE SUBCUT SCH (10:38)
[2021-02-19] MEDS: SODIUM BICARBONATE 650 MG TABLET PO SCH ×3 (10:38→20:04)
[2021-02-19] MEDS: methylPREDNISolone SOD SUC 40 MG/1 ML VIAL IV SCH ×2 (10:38→20:05)
[2021-02-19] MEDS: amLODIPine 10 MG TABLET PO SCH (10:38)
[2021-02-19] MEDS: MONTELUKAST 10 MG TABLET PO SCH (10:39)
[2021-02-19] MEDS: PANTOPRAZOLE 40 MG TABLET PO SCH (10:39)
[2021-02-19] MEDS: GABAPENTIN 300 MG CAPSULE PO SCH ×2 (10:39→20:04)
[2021-02-19] MEDS: metOLazone 5 MG TABLET PO SCH ×2 (10:39→20:07)
[2021-02-19] MEDS: BUDESONIDE/FORMOTEROL 160-4.5 INHALER 6 GM INH SCH ×2 (10:40→22:12)
[2021-02-19] MEDS: FUROSEMIDE 100 MG/10 ML VIAL IV SCH ×2 (10:48→16:53)
[2021-02-20] MEDS: ALBUTEROL/IPRATROPIUM 3 ML NEB RESP TX SCH ×4 (00:25→18:56)
[2021-02-20] MEDS: methylPREDNISolone SOD SUC 40 MG/1 ML VIAL IV SCH (08:15)
[2021-02-20] MEDS: FUROSEMIDE 100 MG/10 ML VIAL IV SCH ×2 (08:16→17:16)
[2021-02-20] MEDS: METOPROLOL TARTRATE 50 MG TABLET PO SCH ×2 (08:16→21:19)
[2021-02-20] MEDS: MONTELUKAST 10 MG TABLET PO SCH (08:16)
[2021-02-20] MEDS: MULTIVITAMIN (CENTRUM) TABLET PO SCH (08:16)
[2021-02-20] MEDS: ENOXAPARIN 30 MG/0.3 ML SYRINGE SUBCUT SCH (08:16)
[2021-02-20] MEDS: GABAPENTIN 300 MG CAPSULE PO SCH ×2 (08:16→21:19)
[2021-02-20] MEDS: PANTOPRAZOLE 40 MG TABLET PO SCH (08:16)
[2021-02-20] MEDS: SODIUM BICARBONATE 650 MG TABLET PO SCH ×3 (08:17→21:19)
[2021-02-20] MEDS: metOLazone 5 MG TABLET PO SCH ×2 (08:17→21:20)
[2021-02-20] MEDS: amLODIPine 10 MG TABLET PO SCH (08:17)
[2021-02-20 09:17] LABS: Basophils % 0.1 % (0.0-0.8); Hematocrit 30.6 VOL% (35.7-47.0); Hemoglobin 9.6 GM/DL (12.0-16.0); Immature Granulocytes % 0.4 %; Immature Granulocytes Absolute 0.06 #; Lymphocytes # 0.8 10*3/uL (1.4-4.0); Lymphocytes % 6.1 % (21.3-54.2); Mean Corpuscular HGB Conc 31.4 GM/DL (32-36); Mean Corpuscular Volume 78.7 FL (87-102); Monocytes % 7.3 % (1.7-12.7); NRBC # 0.52 10*3/uL; Neutrophils % 86.1 % (38.7-73.9); Platelet Count 243 T/CUMM (130-400); Red Blood Count 3.89 MC/CUMM (3.8-5.5); Red Cell Distribution Width 20.6 % (9.3-17.3); White Blood Count 13.5 T/CUMM (4-12)
[2021-02-20 09:28] LABS: Osmolality,Calculated 308.8 MOS/KG (273-304); Potassium 4.6 MMOL/L (3.5-5.1)
[2021-02-20] MEDS: BUDESONIDE/FORMOTEROL 160-4.5 INHALER 6 GM INH SCH ×2 (12:23→21:32)
[2021-02-20] MEDS: ALBUMIN 25% 12.5 GM/50 ML VIAL IV SCH (21:19)
[2021-02-21] MEDS: ALBUTEROL/IPRATROPIUM 3 ML NEB RESP TX SCH ×4 (01:35→20:02)
[2021-02-21] MEDS: ALBUMIN 25% 12.5 GM/50 ML VIAL IV SCH ×2 (05:11→13:10)
[2021-02-21 06:33] LABS: Basophils % 0.1 % (0.0-0.8); Eosinophils % 0.1 % (0.00-10.9); Hematocrit 30.4 VOL% (35.7-47.0); Hemoglobin 9.6 GM/DL (12.0-16.0); Immature Granulocytes % 0.5 %; Immature Granulocytes Absolute 0.06 #; Lymphocytes # 1.8 10*3/uL (1.4-4.0); Lymphocytes % 14.2 % (21.3-54.2); Mean Corpuscular HGB Conc 31.6 GM/DL (32-36); Monocytes % 9.9 % (1.7-12.7); NRBC # 0.62 10*3/uL; Neutrophils % 75.2 % (38.7-73.9); Platelet Count 225 T/CUMM (130-400); Red Blood Count 3.85 MC/CUMM (3.8-5.5); Red Cell Distribution Width 20.3 % (9.3-17.3); White Blood Count 12.8 T/CUMM (4-12)
[2021-02-21 07:16] LABS: Calcium 8.3 MG/DL (8.5-10.1); Osmolality,Calculated 314.5 MOS/KG (273-304); Potassium 5.2 MMOL/L (3.5-5.1)
[2021-02-21] MEDS: predniSONE 20 MG TABLET PO SCH (09:11)
[2021-02-21] MEDS: GABAPENTIN 300 MG CAPSULE PO SCH ×2 (09:11→21:34)
[2021-02-21] MEDS: MULTIVITAMIN (CENTRUM) TABLET PO SCH (09:11)
[2021-02-21] MEDS: SODIUM BICARBONATE 650 MG TABLET PO SCH ×3 (09:11→21:34)
[2021-02-21] MEDS: PANTOPRAZOLE 40 MG TABLET PO SCH (09:11)
[2021-02-21] MEDS: MONTELUKAST 10 MG TABLET PO SCH (09:11)
[2021-02-21] MEDS: FUROSEMIDE 100 MG/10 ML VIAL IV SCH ×2 (09:12→15:38)
[2021-02-21] MEDS: amLODIPine 10 MG TABLET PO SCH (09:12)
[2021-02-21] MEDS: METOPROLOL TARTRATE 50 MG TABLET PO SCH ×2 (09:12→21:34)
[2021-02-21] MEDS: ENOXAPARIN 30 MG/0.3 ML SYRINGE SUBCUT SCH (09:12)
[2021-02-21] MEDS: metOLazone 5 MG TABLET PO SCH ×2 (09:12→21:34)
[2021-02-21] MEDS: BUDESONIDE/FORMOTEROL 160-4.5 INHALER 6 GM INH SCH ×2 (10:09→21:34)
[2021-02-22] MEDS: ALBUTEROL/IPRATROPIUM 3 ML NEB RESP TX SCH ×4 (00:20→19:23)
[2021-02-22 05:30] LABS: Hematocrit 29.4 VOL% (35.7-47.0); Hemoglobin 9.3 GM/DL (12.0-16.0); Immature Granulocytes % 0.5 %; Immature Granulocytes Absolute 0.06 #; Lymphocytes # 0.9 10*3/uL (1.4-4.0); Lymphocytes % 7.8 % (21.3-54.2); Mean Corpuscular HGB Conc 31.6 GM/DL (32-36); Mean Corpuscular Volume 78.6 FL (87-102); Mean Platelet Volume 10.2 FL (9.6-12.0); Monocytes % 8.7 % (1.7-12.7); NRBC # 0.47 10*3/uL; Platelet Count 231 T/CUMM (130-400); Red Blood Count 3.74 MC/CUMM (3.8-5.5); Red Cell Distribution Width 20.1 % (9.3-17.3); White Blood Count 10.9 T/CUMM (4-12)
[2021-02-22] MEDS: FUROSEMIDE 100 MG/10 ML VIAL IV SCH ×2 (09:24→16:38)
[2021-02-22] MEDS: METOPROLOL TARTRATE 50 MG TABLET PO SCH ×2 (09:24→21:06)
[2021-02-22] MEDS: ENOXAPARIN 30 MG/0.3 ML SYRINGE SUBCUT SCH (09:24)
[2021-02-22] MEDS: metOLazone 5 MG TABLET PO SCH ×2 (09:25→21:06)
[2021-02-22] MEDS: MONTELUKAST 10 MG TABLET PO SCH (09:25)
[2021-02-22] MEDS: MULTIVITAMIN (CENTRUM) TABLET PO SCH (09:25)
[2021-02-22] MEDS: predniSONE 20 MG TABLET PO SCH (09:25)
[2021-02-22] MEDS: amLODIPine 10 MG TABLET PO SCH (09:25)
[2021-02-22] MEDS: GABAPENTIN 300 MG CAPSULE PO SCH ×2 (09:25→21:05)
[2021-02-22] MEDS: PANTOPRAZOLE 40 MG TABLET PO SCH (09:26)
[2021-02-22] MEDS: BUDESONIDE/FORMOTEROL 160-4.5 INHALER 6 GM INH SCH ×2 (09:26→21:16)
[2021-02-22] MEDS: SODIUM BICARBONATE 650 MG TABLET PO SCH ×3 (09:26→21:05)
[2021-02-22 09:30] LABS: Potassium 4.9 MMOL/L (3.5-5.1)
[2021-02-22 09:32] LABS: Calcium 7.7 MG/DL (8.5-10.1)
[2021-02-22 09:33] LABS: Osmolality,Calculated 319.5 MOS/KG (273-304)
[2021-02-23 05:18] LABS: Basophils % 0.1 % (0.0-0.8); Hematocrit 29.3 VOL% (35.7-47.0); Hemoglobin 9.4 GM/DL (12.0-16.0); Immature Granulocytes % 0.3 %; Immature Granulocytes Absolute 0.04 #; Lymphocytes # 0.9 10*3/uL (1.4-4.0); Lymphocytes % 7.5 % (21.3-54.2); Mean Corpuscular HGB Conc 32.1 GM/DL (32-36); Mean Corpuscular Volume 76.5 FL (87-102); Monocytes % 9.4 % (1.7-12.7); NRBC # 0.39 10*3/uL; Neutrophils % 82.7 % (38.7-73.9); Platelet Count 209 T/CUMM (130-400); Red Blood Count 3.83 MC/CUMM (3.8-5.5); Red Cell Distribution Width 19.5 % (9.3-17.3); White Blood Count 12.3 T/CUMM (4-12)
[2021-02-23 05:33] LABS: Calcium 7.9 MG/DL (8.5-10.1); Osmolality,Calculated 326.3 MOS/KG (273-304); Potassium 4.6 MMOL/L (3.5-5.1)
[2021-02-23] MEDS: SODIUM BICARBONATE 650 MG TABLET PO SCH ×3 (08:20→20:52)
[2021-02-23] MEDS: ENOXAPARIN 30 MG/0.3 ML SYRINGE SUBCUT SCH (08:20)
[2021-02-23] MEDS: GABAPENTIN 300 MG CAPSULE PO SCH ×2 (08:22→20:51)
[2021-02-23] MEDS: MULTIVITAMIN (CENTRUM) TABLET PO SCH (08:22)
[2021-02-23] MEDS: MONTELUKAST 10 MG TABLET PO SCH (08:22)
[2021-02-23] MEDS: metOLazone 5 MG TABLET PO SCH ×2 (08:22→20:51)
[2021-02-23] MEDS: predniSONE 20 MG TABLET PO SCH (08:22)
[2021-02-23] MEDS: PANTOPRAZOLE 40 MG TABLET PO SCH (08:22)
[2021-02-23] MEDS: amLODIPine 10 MG TABLET PO SCH (08:22)
[2021-02-23] MEDS: METOPROLOL TARTRATE 50 MG TABLET PO SCH ×2 (08:23→20:52)
[2021-02-23] MEDS: BUDESONIDE/FORMOTEROL 160-4.5 INHALER 6 GM INH SCH ×2 (08:23→21:16)
[2021-02-23] MEDS: FUROSEMIDE 100 MG/10 ML VIAL IV SCH ×2 (08:23→15:06)
[2021-02-23] MEDS: ALBUTEROL/IPRATROPIUM 3 ML NEB RESP TX SCH ×4 (10:00→19:22)
[2021-02-24] MEDS: ALBUTEROL/IPRATROPIUM 3 ML NEB RESP TX SCH ×3 (00:13→14:20)
[2021-02-24 07:04] LABS: Basophils % 0.1 % (0.0-0.8); Eosinophils % 0.2 % (0.00-10.9); Hematocrit 30.1 VOL% (35.7-47.0); Hemoglobin 9.8 GM/DL (12.0-16.0); Immature Granulocytes % 0.3 %; Immature Granulocytes Absolute 0.04 #; Lymphocytes # 1.6 10*3/uL (1.4-4.0); Lymphocytes % 12.2 % (21.3-54.2); Mean Corpuscular HGB Conc 32.6 GM/DL (32-36); Mean Corpuscular Volume 75.8 FL (87-102); Mean Platelet Volume 10.4 FL (9.6-12.0); Monocytes % 10.5 % (1.7-12.7); NRBC # 0.24 10*3/uL; Neutrophils % 76.7 % (38.7-73.9); Red Blood Count 3.97 MC/CUMM (3.8-5.5); Red Cell Distribution Width 19.5 % (9.3-17.3); White Blood Count 13.2 T/CUMM (4-12)
[2021-02-24 07:12] LABS: Platelet Count 150 T/CUMM (130-400)
[2021-02-24 07:23] LABS: Hypochromasia 1+; Ovalocytes Slight; Target Cells Few
[2021-02-24 09:42] LABS: Calcium 7.9 MG/DL (8.5-10.1); Osmolality,Calculated 325.5 MOS/KG (273-304); Potassium 4.6 MMOL/L (3.5-5.1)
[2021-02-24] MEDS: SODIUM BICARBONATE 650 MG TABLET PO SCH (10:16)
[2021-02-24] MEDS: ENOXAPARIN 30 MG/0.3 ML SYRINGE SUBCUT SCH (10:16)
[2021-02-24] MEDS: PANTOPRAZOLE 40 MG TABLET PO SCH (10:17)
[2021-02-24] MEDS: predniSONE 20 MG TABLET PO SCH (10:17)
[2021-02-24] MEDS: MULTIVITAMIN (CENTRUM) TABLET PO SCH (10:18)
[2021-02-24] MEDS: amLODIPine 10 MG TABLET PO SCH (10:18)
[2021-02-24] MEDS: GABAPENTIN 300 MG CAPSULE PO SCH (10:18)
[2021-02-24] MEDS: metOLazone 5 MG TABLET PO SCH (10:18)
[2021-02-24] MEDS: MONTELUKAST 10 MG TABLET PO SCH (10:18)
[2021-02-24] MEDS: METOPROLOL TARTRATE 50 MG TABLET PO SCH (10:18)
[2021-02-24] MEDS: FUROSEMIDE 100 MG/10 ML VIAL IV SCH (10:19)
[2021-02-24] MEDS: BUDESONIDE/FORMOTEROL 160-4.5 INHALER 6 GM INH SCH (10:24)
[2021-02-24 12:01] VITALS: BP 146/90
[2021-02-24] MEDS ORDERED: FUROSEMIDE 80 MG TABLET PO SCH (16:00)
== END 2021-02-24 15:00 | disposition home or self-care (01) | DRG 194 ==
LOC: EDBD → EDUNIT# → N.ED 23:21 → N.EDINP 02-16 02:18 → SUATTDRO 02-16 02:18 → N.5E 02-16 04:13
PROVIDERS: ADMIT Internal Medicine; ATTEND Hospitalist

== ENCOUNTER 2021-03-02 17:07 | Inpatient (IN) ==
[2021-03-02 18:02] LABS: Basophils % 0.1 % (0.0-0.8); Eosinophils # 0.1 10*3/uL (0.0-0.87); Eosinophils % 0.7 % (0.00-10.9); Hemoglobin 9.4 GM/DL (12.0-16.0); Immature Granulocytes % 0.5 %; Immature Granulocytes Absolute 0.08 #; Lymphocytes # 1.2 10*3/uL (1.4-4.0); Lymphocytes % 7.9 % (21.3-54.2); Mean Corpuscular HGB Conc 32.4 GM/DL (32-36); Mean Corpuscular Volume 74.9 FL (87-102); Neutrophils % 83.8 % (38.7-73.9); Platelet Count 161 T/CUMM (130-400); Red Blood Count 3.87 MC/CUMM (3.8-5.5); Red Cell Distribution Width 18.9 % (9.3-17.3); White Blood Count 15.2 T/CUMM (4-12)
[2021-03-02 18:05] LABS: Bilirubin,Urine Negative (Negative); Blood, Urine Small mg/dL (Negative); Glucose,Urine (UA) Negative (Negative); Ketones,Urine Negative (Negative); Mucus,Urine Occasional /LPF (Occasional); Nitrite,Urine Negative (Negative); Protein,Urine 100 MG/DL; RBC,Urine 1 /HPF (0-4); Urine Appearance CLEAR (Clear); Urine Color Yellow (Yellow); Urine Specific Gravity 1.011 (1.001-1.035)
[2021-03-02 18:17] LABS: Alanine Aminotransferase 10 U/L (13-56); Albumin 2.5 G/DL (3.4-5.0); Alkaline Phosphatase 121 U/L (45-117); Aspartate Amino Transferase 46 U/L (0-37); Blood Urea Nitrogen 116 MG/DL (7-18); Calcium 8.2 MG/DL (8.5-10.1); Carbon Dioxide 22 MMOL/L (21-32); Estimated Glom Filtration Rate 20 ML/MIN; Glucose 68 MG/DL (74-106); Osmolality,Calculated 324.6 MOS/KG (273-304); Potassium 4.7 MMOL/L (3.5-5.1); Sodium 146 MMOL/L (136-145); Total Protein 6.7 G/DL (6.4-8.2)
[2021-03-02] MEDS ORDERED: DESITIN 4OZ/NYSTATIN 15 GRAM MIXTURE PASTE TOP ONE (18:30)
[2021-03-02 19:16] LABS: Barbiturates Screen,Urine Negative (Negative); Benzodiazepines Screen,Urine Negative (Negative); Cannabinoid Screen,Urine Negative (Negative); Opiate Screen,Urine Negative (Negative); Phencyclidine Screen,Urine Negative (Negative)
[2021-03-02] MEDS: DEXTROSE 5% NACL 0.45% 1,000 ML IV SCH (19:25)
[2021-03-02] MEDS ORDERED: hydrALAZINE 20 MG/1 ML VIAL IV PRN (19:55)
[2021-03-02] MEDS ORDERED: DEXTROSE 50% 25 GM/50 ML VIAL IV PRN (19:55)
[2021-03-02] MEDS ORDERED: ONDANSETRON 4 MG/2 ML VIAL IV PRN (19:55)
[2021-03-02] MEDS ORDERED: GLUCAGON 1 MG VIAL IM PRN (19:55)
[2021-03-02] MEDS ORDERED: DEXTROSE 5% NACL 0.45% 1,000 ML IV SCH (20:00)
[2021-03-02] MEDS ORDERED: MAGNESIUM SULF RIDER 4 GM/100 ML PREMIX IV PRN (20:02)
[2021-03-02] MEDS ORDERED: MAGNESIUM SULF RIDER 2 GM/50 ML PREMIX IV PRN (20:02)
[2021-03-02] MEDS ORDERED: LEVOFLOXACIN INJ 750 MG/150 ML PREMIX IV SCH (21:00)
[2021-03-02] MEDS: METOPROLOL TARTRATE 50 MG TABLET PO SCH (22:02)
[2021-03-02] MEDS: GABAPENTIN 300 MG CAPSULE PO SCH (22:03)
[2021-03-02] MEDS: SODIUM BICARBONATE 650 MG TABLET PO SCH (22:03)
[2021-03-02] MEDS: ENOXAPARIN 30 MG/0.3 ML SYRINGE SUBCUT SCH (22:04)
[2021-03-03] MEDS: ALBUTEROL/IPRATROPIUM 3 ML NEB RESP TX SCH ×4 (02:16→19:32)
[2021-03-03 04:13] LABS: Basophils % 0.1 % (0.0-0.8); Eosinophils # 0.1 10*3/uL (0.0-0.87); Eosinophils % 1.2 % (0.00-10.9); Hematocrit 24.1 VOL% (35.7-47.0); Hemoglobin 7.9 GM/DL (12.0-16.0); Immature Granulocytes % 0.5 %; Immature Granulocytes Absolute 0.06 #; Lymphocytes # 1.2 10*3/uL (1.4-4.0); Lymphocytes % 10.7 % (21.3-54.2); Mean Corpuscular HGB Conc 32.8 GM/DL (32-36); Mean Corpuscular Volume 74.8 FL (87-102); Monocytes % 8.9 % (1.7-12.7); Neutrophils % 78.6 % (38.7-73.9); Platelet Count 138 T/CUMM (130-400); Red Blood Count 3.22 MC/CUMM (3.8-5.5); Red Cell Distribution Width 18.4 % (9.3-17.3); White Blood Count 11.5 T/CUMM (4-12)
[2021-03-03 04:35] LABS: Hypochromasia 2+; Ovalocytes Few
[2021-03-03 04:36] LABS: Target Cells Few
[2021-03-03 04:37] LABS: Acanthocytes Few; Anisocytosis 1+; Microcytosis 1+; Schistocytes Slight
[2021-03-03 04:38] LABS: Platelet Estimate Adequate
[2021-03-03 04:46] LABS: Alanine Aminotransferase < 6 U/L (13-56); Albumin 2.1 G/DL (3.4-5.0); Alkaline Phosphatase 119 U/L (45-117); Aspartate Amino Transferase 27 U/L (0-37); Blood Urea Nitrogen 121 MG/DL (7-18); Calcium 7.7 MG/DL (8.5-10.1); Carbon Dioxide 24 MMOL/L (21-32); Estimated Glom Filtration Rate 21 ML/MIN; Glucose 109 MG/DL (74-106); Osmolality,Calculated 325.8 MOS/KG (273-304); Potassium 3.5 MMOL/L (3.5-5.1); Sodium 144 MMOL/L (136-145); Total Protein 5.3 G/DL (6.4-8.2)
[2021-03-03] MEDS: oxyCODONE IR 5 MG TABLET PO PRN ×3 (05:54→21:34)
[2021-03-03] MEDS: MONTELUKAST 10 MG TABLET PO SCH (10:24)
[2021-03-03] MEDS: GABAPENTIN 300 MG CAPSULE PO SCH ×2 (10:24→21:34)
[2021-03-03] MEDS: amLODIPine 10 MG TABLET PO SCH (10:25)
[2021-03-03] MEDS: PANTOPRAZOLE 40 MG TABLET PO SCH (10:25)
[2021-03-03] MEDS: SODIUM BICARBONATE 650 MG TABLET PO SCH ×3 (10:25→21:34)
[2021-03-03] MEDS: METOPROLOL TARTRATE 50 MG TABLET PO SCH ×2 (10:25→21:34)
[2021-03-03] MEDS: FUROSEMIDE 40 MG/4 ML VIAL IV SCH ×2 (10:29→16:32)
[2021-03-03] MEDS ORDERED: VANCOMYCIN INJ 750 MG in SODIUM CHLORIDE 0.9% 250 ML IV PRN (11:56)
[2021-03-03] MEDS ORDERED: PIPERACILLIN/TAZOBACTAM 3,375 MG in SODIUM CHLORIDE 0.9% 100 ML IV SCH (12:00)
[2021-03-03] MEDS ORDERED: VANCOMYCIN INJ 2,000 MG in SODIUM CHLORIDE 0.9% 500 ML IV ONE (13:00)
[2021-03-03] MEDS: PIPERACILLIN/TAZOBACTAM 3,375 MG in SODIUM CHLORIDE 0.9% 100 ML IV SCH (13:07)
[2021-03-03] MEDS: DEXTROSE 5% NACL 0.45% 1,000 ML IV SCH ×2 (20:56→21:36)
[2021-03-03] MEDS: ENOXAPARIN 30 MG/0.3 ML SYRINGE SUBCUT SCH (21:34)
[2021-03-04] MEDS: PIPERACILLIN/TAZOBACTAM 3,375 MG in SODIUM CHLORIDE 0.9% 100 ML IV SCH ×2 (00:11→12:13)
[2021-03-04] MEDS: ALBUTEROL/IPRATROPIUM 3 ML NEB RESP TX SCH ×4 (01:28→19:22)
[2021-03-04] MEDS: oxyCODONE IR 5 MG TABLET PO PRN (02:35)
[2021-03-04 05:39] LABS: Basophils % 0.1 % (0.0-0.8); Eosinophils # 0.2 10*3/uL (0.0-0.87); Eosinophils % 2.2 % (0.00-10.9); Hematocrit 23.6 VOL% (35.7-47.0); Hemoglobin 7.6 GM/DL (12.0-16.0); Immature Granulocytes % 0.4 %; Immature Granulocytes Absolute 0.03 #; Lymphocytes % 23.4 % (21.3-54.2); Mean Corpuscular HGB Conc 32.2 GM/DL (32-36); Mean Corpuscular Volume 76.1 FL (87-102); Monocytes % 9.3 % (1.7-12.7); Neutrophils % 64.6 % (38.7-73.9); Red Cell Distribution Width 18.1 % (9.3-17.3); White Blood Count 8.6 T/CUMM (4-12)
[2021-03-04 05:47] LABS: Platelet Count 103 T/CUMM (130-400)
[2021-03-04 05:55] LABS: Ferritin 142.9 ng/mL (8-252)
[2021-03-04 06:19] LABS: Target Cells Few
[2021-03-04 06:20] LABS: Acanthocytes Few; Burr Cells Few; Microcytosis 1+; Ovalocytes Few
[2021-03-04 06:21] LABS: Anisocytosis 1+; Hypochromasia 2+; Platelet Estimate Decreased
[2021-03-04 06:32] LABS: Alanine Aminotransferase < 6 U/L (13-56); Albumin 1.8 G/DL (3.4-5.0); Alkaline Phosphatase 105 U/L (45-117); Aspartate Amino Transferase 27 U/L (0-37); Blood Urea Nitrogen 110 MG/DL (7-18); Calcium 7.2 MG/DL (8.5-10.1); Carbon Dioxide 21 MMOL/L (21-32); Estimated Glom Filtration Rate 19 ML/MIN; Glucose 88 MG/DL (74-106); Osmolality,Calculated 310.5 MOS/KG (273-304); Potassium 3.5 MMOL/L (3.5-5.1); Sodium 139 MMOL/L (136-145); Total Protein 5.1 G/DL (6.4-8.2)
[2021-03-04 06:45] LABS: Parathyroid Hormone Intact 281.7 PG/ML (18.4-80.1)
[2021-03-04 06:59] LABS: Uric Acid 11.5 MG/DL (2.6-6.0)
[2021-03-04 08:11] LABS: Protein/Creatinine Ratio,Urine 0.4 RATIO
[2021-03-04] MEDS: GABAPENTIN 300 MG CAPSULE PO SCH ×2 (08:38→20:31)
[2021-03-04] MEDS: PANTOPRAZOLE 40 MG TABLET PO SCH (08:38)
[2021-03-04] MEDS: SODIUM BICARBONATE 650 MG TABLET PO SCH ×3 (08:38→20:31)
[2021-03-04] MEDS: FUROSEMIDE 40 MG/4 ML VIAL IV SCH ×2 (08:38→17:02)
[2021-03-04] MEDS: MONTELUKAST 10 MG TABLET PO SCH (08:38)
[2021-03-04] MEDS: METOPROLOL TARTRATE 50 MG TABLET PO SCH ×2 (08:38→20:31)
[2021-03-04] MEDS: amLODIPine 10 MG TABLET PO SCH (08:38)
[2021-03-04] MEDS: DEXTROSE 5% NACL 0.45% 1,000 ML IV SCH ×2 (08:43→20:32)
[2021-03-04 09:06] LABS: Albumin (SPE) 2.7 G/DL (3.2-5.3); Alpha 1 (SPE) 0.2 G/DL (0.1-0.4); Alpha 1 (SPE) Rel % 4.7 %; Alpha 2 (SPE) 0.7 G/DL (0.4-1.0); Alpha 2 (SPE) Rel % 13.4 %; Beta (SPE) 0.6 G/DL (0.5-1.1); Beta (SPE) Rel % 11.4 %; Gamma (SPE) 0.9 G/DL (0.7-1.7); Gamma (SPE) Rel % 17.5 %
[2021-03-04] MEDS: ENOXAPARIN 30 MG/0.3 ML SYRINGE SUBCUT SCH (20:32)
[2021-03-04] MEDS: ZINC OXIDE 16% PASTE 57 GM TUBE TOP SCH (20:36)
[2021-03-05] MEDS: ALBUTEROL/IPRATROPIUM 3 ML NEB RESP TX SCH ×4 (00:25→20:11)
[2021-03-05] MEDS: PIPERACILLIN/TAZOBACTAM 3,375 MG in SODIUM CHLORIDE 0.9% 100 ML IV SCH ×2 (00:39→13:09)
[2021-03-05] MEDS: oxyCODONE IR 5 MG TABLET PO PRN ×4 (00:44→17:22)
[2021-03-05 06:57] LABS: Basophils % 0.1 % (0.0-0.8); Eosinophils # 0.2 10*3/uL (0.0-0.87); Eosinophils % 2.4 % (0.00-10.9); Hematocrit 23.1 VOL% (35.7-47.0); Hemoglobin 7.5 GM/DL (12.0-16.0); Immature Granulocytes % 1.6 %; Immature Granulocytes Absolute 0.12 #; Lymphocytes # 1.8 10*3/uL (1.4-4.0); Lymphocytes % 23.7 % (21.3-54.2); Mean Corpuscular HGB Conc 32.5 GM/DL (32-36); Monocytes % 10.3 % (1.7-12.7); Neutrophils % 61.9 % (38.7-73.9); Platelet Count 107 T/CUMM (130-400); Red Blood Count 3.04 MC/CUMM (3.8-5.5); Red Cell Distribution Width 18.3 % (9.3-17.3); White Blood Count 7.5 T/CUMM (4-12)
[2021-03-05 07:17] LABS: Eosinophils 3 % (0-10); Hypochromasia 1+; Lymphocytes 20 % (20-55); Segmented Neutrophils 70 % (50-85); Target Cells Few; Total Cells Counted 100
[2021-03-05 07:18] LABS: Acanthocytes Few; Burr Cells Few; Microcytosis 1+; Ovalocytes Few
[2021-03-05 07:19] LABS: Alanine Aminotransferase 9 U/L (13-56); Albumin 1.5 G/DL (3.4-5.0); Alkaline Phosphatase 107 U/L (45-117); Aspartate Amino Transferase 31 U/L (0-37); Bilirubin,Total < 0.39 MG/DL (0.20-1.00); Blood Urea Nitrogen 105 MG/DL (7-18); Calcium 6.6 MG/DL (8.5-10.1); Carbon Dioxide 18 MMOL/L (21-32); Estimated Glom Filtration Rate 18 ML/MIN; Glucose 80 MG/DL (74-106); Osmolality,Calculated 304.8 MOS/KG (273-304); Platelet Estimate Decreased; Sodium 137 MMOL/L (136-145)
[2021-03-05] MEDS: DEXTROSE 5% NACL 0.45% 1,000 ML IV SCH ×2 (09:48→21:54)
[2021-03-05] MEDS: METOPROLOL TARTRATE 50 MG TABLET PO SCH ×2 (09:49→21:53)
[2021-03-05] MEDS: amLODIPine 10 MG TABLET PO SCH (09:49)
[2021-03-05] MEDS: PANTOPRAZOLE 40 MG TABLET PO SCH (09:49)
[2021-03-05] MEDS: SODIUM BICARBONATE 650 MG TABLET PO SCH ×3 (09:49→21:54)
[2021-03-05] MEDS: FUROSEMIDE 40 MG/4 ML VIAL IV SCH ×2 (09:49→17:21)
[2021-03-05] MEDS: calcitrioL 0.25 MCG CAPSULE PO SCH (09:50)
[2021-03-05] MEDS: MONTELUKAST 10 MG TABLET PO SCH (09:50)
[2021-03-05] MEDS: GABAPENTIN 300 MG CAPSULE PO SCH ×2 (09:50→21:53)
[2021-03-05] MEDS: ZINC OXIDE 16% PASTE 57 GM TUBE TOP SCH ×2 (09:50→21:54)
[2021-03-05] MEDS ORDERED: VANCOMYCIN INJ 750 MG in SODIUM CHLORIDE 0.9% 250 ML IV ONE (17:00)
[2021-03-05] MEDS ORDERED: CALCIUM (CARBONATE)/VITAMIN D 600 MG-400 UNIT TABLET PO SCH (21:00)
[2021-03-05] MEDS: ENOXAPARIN 30 MG/0.3 ML SYRINGE SUBCUT SCH (21:53)
[2021-03-06] MEDS: PIPERACILLIN/TAZOBACTAM 3,375 MG in SODIUM CHLORIDE 0.9% 100 ML IV SCH ×2 (02:05→13:00)
[2021-03-06] MEDS: ALBUTEROL/IPRATROPIUM 3 ML NEB RESP TX SCH ×4 (02:10→19:54)
[2021-03-06] MEDS: FUROSEMIDE 40 MG/4 ML VIAL IV SCH ×2 (09:50→17:05)
[2021-03-06] MEDS: MONTELUKAST 10 MG TABLET PO SCH (09:50)
[2021-03-06] MEDS: SODIUM BICARBONATE 650 MG TABLET PO SCH ×3 (09:50→22:57)
[2021-03-06] MEDS: PANTOPRAZOLE 40 MG TABLET PO SCH (09:50)
[2021-03-06] MEDS: METOPROLOL TARTRATE 50 MG TABLET PO SCH ×2 (09:50→22:57)
[2021-03-06] MEDS: amLODIPine 10 MG TABLET PO SCH (09:50)
[2021-03-06] MEDS: GABAPENTIN 300 MG CAPSULE PO SCH ×2 (09:50→22:58)
[2021-03-06] MEDS: calcitrioL 0.25 MCG CAPSULE PO SCH (09:50)
[2021-03-06] MEDS: ZINC OXIDE 16% PASTE 57 GM TUBE TOP SCH ×2 (09:51→22:58)
[2021-03-06] MEDS: DEXTROSE 5% NACL 0.45% 1,000 ML IV SCH (12:59)
[2021-03-06] MEDS ORDERED: TUBERCULIN SKIN TEST 0.1 ML SYRINGE INTRADERM ONE (15:17)
[2021-03-06 18:27] LABS: Osmolality,Calculated 310.7 MOS/KG (273-304); Potassium 3.6 MMOL/L (3.5-5.1)
[2021-03-06] MEDS: ENOXAPARIN 30 MG/0.3 ML SYRINGE SUBCUT SCH (22:57)
[2021-03-07] MEDS: ALBUTEROL/IPRATROPIUM 3 ML NEB RESP TX SCH ×4 (01:15→19:55)
[2021-03-07] MEDS: PIPERACILLIN/TAZOBACTAM 3,375 MG in SODIUM CHLORIDE 0.9% 100 ML IV SCH ×2 (03:02→16:00)
[2021-03-07 07:03] LABS: Basophils % 0.2 % (0.0-0.8); Eosinophils # 0.1 10*3/uL (0.0-0.87); Eosinophils % 2.2 % (0.00-10.9); Hematocrit 24.2 VOL% (35.7-47.0); Hemoglobin 7.9 GM/DL (12.0-16.0); Immature Granulocytes % 0.5 %; Immature Granulocytes Absolute 0.03 #; Lymphocytes # 1.7 10*3/uL (1.4-4.0); Lymphocytes % 25.8 % (21.3-54.2); Mean Corpuscular HGB Conc 32.6 GM/DL (32-36); Mean Corpuscular Volume 74.5 FL (87-102); Monocytes % 13.1 % (1.7-12.7); Neutrophils % 58.2 % (38.7-73.9); Platelet Count 150 T/CUMM (130-400); Red Blood Count 3.25 MC/CUMM (3.8-5.5); Red Cell Distribution Width 17.7 % (9.3-17.3); White Blood Count 6.5 T/CUMM (4-12)
[2021-03-07 07:21] LABS: Burr Cells Slight; Hypochromasia 1+; Ovalocytes Slight; Platelet Estimate Adequate
[2021-03-07 07:22] LABS: Microcytosis Slight
[2021-03-07 07:36] LABS: Alanine Aminotransferase < 9 U/L (13-56); Albumin 1.9 G/DL (3.4-5.0); Alkaline Phosphatase 108 U/L (45-117); Aspartate Amino Transferase 26 U/L (0-37); Blood Urea Nitrogen 100 MG/DL (7-18); Carbon Dioxide 23 MMOL/L (21-32); Estimated Glom Filtration Rate 18 ML/MIN; Glucose 78 MG/DL (74-106); Osmolality,Calculated 308.4 MOS/KG (273-304); Potassium 3.4 MMOL/L (3.5-5.1); Sodium 140 MMOL/L (136-145); Total Protein 5.5 G/DL (6.4-8.2)
[2021-03-07] MEDS: ZINC OXIDE 16% PASTE 57 GM TUBE TOP SCH ×2 (08:45→20:57)
[2021-03-07] MEDS ORDERED: POTASSIUM CHLORIDE 20 MEQ TABLET PO ONE (09:00)
[2021-03-07] MEDS: FUROSEMIDE 40 MG/4 ML VIAL IV SCH ×2 (10:08→15:47)
[2021-03-07] MEDS: METOPROLOL TARTRATE 50 MG TABLET PO SCH ×2 (10:08→20:57)
[2021-03-07] MEDS: MONTELUKAST 10 MG TABLET PO SCH (10:08)
[2021-03-07] MEDS: SODIUM BICARBONATE 650 MG TABLET PO SCH ×3 (10:09→20:57)
[2021-03-07] MEDS: GABAPENTIN 300 MG CAPSULE PO SCH ×2 (10:09→20:57)
[2021-03-07] MEDS: amLODIPine 10 MG TABLET PO SCH (10:09)
[2021-03-07] MEDS: PANTOPRAZOLE 40 MG TABLET PO SCH (10:09)
[2021-03-07] MEDS: calcitrioL 0.25 MCG CAPSULE PO SCH (10:09)
[2021-03-07] MEDS ORDERED: VANCOMYCIN INJ 750 MG in SODIUM CHLORIDE 0.9% 250 ML IV ONE (11:00)
[2021-03-07] MEDS: ENOXAPARIN 30 MG/0.3 ML SYRINGE SUBCUT SCH (20:58)
[2021-03-08] MEDS: ALBUTEROL/IPRATROPIUM 3 ML NEB RESP TX SCH ×4 (01:41→19:07)
[2021-03-08] MEDS: PIPERACILLIN/TAZOBACTAM 3,375 MG in SODIUM CHLORIDE 0.9% 100 ML IV SCH ×2 (04:35→15:20)
[2021-03-08 05:30] LABS: Basophils % 0.3 % (0.0-0.8); Eosinophils # 0.2 10*3/uL (0.0-0.87); Eosinophils % 2.6 % (0.00-10.9); Hematocrit 24.5 VOL% (35.7-47.0); Immature Granulocytes % 0.3 %; Immature Granulocytes Absolute 0.02 #; Lymphocytes # 1.8 10*3/uL (1.4-4.0); Lymphocytes % 29.4 % (21.3-54.2); Mean Corpuscular HGB Conc 32.7 GM/DL (32-36); Mean Corpuscular Volume 74.5 FL (87-102); Monocytes % 11.2 % (1.7-12.7); Neutrophils % 56.2 % (38.7-73.9); Platelet Count 150 T/CUMM (130-400); Red Blood Count 3.29 MC/CUMM (3.8-5.5); Red Cell Distribution Width 17.6 % (9.3-17.3); White Blood Count 6.1 T/CUMM (4-12)
[2021-03-08 05:49] LABS: Alanine Aminotransferase < 6 U/L (13-56); Albumin 1.8 G/DL (3.4-5.0); Alkaline Phosphatase 153 U/L (45-117); Aspartate Amino Transferase 33 U/L (0-37); Blood Urea Nitrogen 99 MG/DL (7-18); Calcium 7.1 MG/DL (8.5-10.1); Carbon Dioxide 22 MMOL/L (21-32); Estimated Glom Filtration Rate 17 ML/MIN; Glucose 99 MG/DL (74-106); Osmolality,Calculated 305.7 MOS/KG (273-304); Potassium 4.2 MMOL/L (3.5-5.1); Sodium 138 MMOL/L (136-145); Total Protein 5.6 G/DL (6.4-8.2)
[2021-03-08 06:49] LABS: Eosinophils 4 % (0-10); Lymphocytes 34 % (20-55); Platelet Estimate Normal; Segmented Neutrophils 56 % (50-85); Total Cells Counted 100
[2021-03-08 06:50] LABS: Hypochromasia Slight; Microcytosis 1+
[2021-03-08] MEDS: ZINC OXIDE 16% PASTE 57 GM TUBE TOP SCH ×2 (08:59→21:52)
[2021-03-08] MEDS: FUROSEMIDE 40 MG/4 ML VIAL IV SCH ×2 (08:59→15:24)
[2021-03-08] MEDS: amLODIPine 10 MG TABLET PO SCH (08:59)
[2021-03-08] MEDS: METOPROLOL TARTRATE 50 MG TABLET PO SCH ×2 (09:00→21:31)
[2021-03-08] MEDS: GABAPENTIN 300 MG CAPSULE PO SCH ×2 (09:00→21:31)
[2021-03-08] MEDS: MONTELUKAST 10 MG TABLET PO SCH (09:00)
[2021-03-08] MEDS: SODIUM BICARBONATE 650 MG TABLET PO SCH ×3 (09:00→21:32)
[2021-03-08] MEDS: PANTOPRAZOLE 40 MG TABLET PO SCH (09:00)
[2021-03-08] MEDS: calcitrioL 0.25 MCG CAPSULE PO SCH (09:00)
[2021-03-08] MEDS: ENOXAPARIN 30 MG/0.3 ML SYRINGE SUBCUT SCH (21:31)
[2021-03-08] MEDS: oxyCODONE IR 5 MG TABLET PO PRN (22:27)
[2021-03-09] MEDS: ALBUTEROL/IPRATROPIUM 3 ML NEB RESP TX SCH ×4 (00:32→19:20)
[2021-03-09] MEDS: PIPERACILLIN/TAZOBACTAM 3,375 MG in SODIUM CHLORIDE 0.9% 100 ML IV SCH ×2 (03:24→18:31)
[2021-03-09 06:12] LABS: Total Volume,Urine 2300 ML (400-2000)
[2021-03-09 06:25] LABS: Total Protein 24 Hr Ur Result 437 MG/24HR (0-149.1)
[2021-03-09 06:32] LABS: Creatinine Clearance Urine 7.58 ML/MIN (70-115)
[2021-03-09 07:56] LABS: Basophils % 0.4 % (0.0-0.8); Eosinophils # 0.1 10*3/uL (0.0-0.87); Eosinophils % 2.5 % (0.00-10.9); Hematocrit 24.9 VOL% (35.7-47.0); Hemoglobin 8.1 GM/DL (12.0-16.0); Immature Granulocytes % 0.2 %; Immature Granulocytes Absolute 0.01 #; Lymphocytes # 1.8 10*3/uL (1.4-4.0); Lymphocytes % 32.1 % (21.3-54.2); Mean Corpuscular HGB Conc 32.5 GM/DL (32-36); Mean Corpuscular Volume 74.3 FL (87-102); Mean Platelet Volume 11.2 FL (9.6-12.0); Monocytes % 13.8 % (1.7-12.7); Platelet Count 199 T/CUMM (130-400); Red Blood Count 3.35 MC/CUMM (3.8-5.5); White Blood Count 5.6 T/CUMM (4-12)
[2021-03-09 08:14] LABS: Calcium 7.2 MG/DL (8.5-10.1); Osmolality,Calculated 307.4 MOS/KG (273-304)
[2021-03-09] MEDS ORDERED: MAGNESIUM SULF RIDER 2 GM/50 ML PREMIX IV ONE (09:17)
[2021-03-09] MEDS: PANTOPRAZOLE 40 MG TABLET PO SCH (10:03)
[2021-03-09] MEDS: MONTELUKAST 10 MG TABLET PO SCH (10:03)
[2021-03-09] MEDS: GABAPENTIN 300 MG CAPSULE PO SCH ×2 (10:03→20:48)
[2021-03-09] MEDS: amLODIPine 10 MG TABLET PO SCH (10:03)
[2021-03-09] MEDS: SODIUM BICARBONATE 650 MG TABLET PO SCH ×3 (10:03→20:48)
[2021-03-09] MEDS: METOPROLOL TARTRATE 50 MG TABLET PO SCH ×2 (10:03→20:48)
[2021-03-09] MEDS: calcitrioL 0.25 MCG CAPSULE PO SCH (10:04)
[2021-03-09] MEDS: ZINC OXIDE 16% PASTE 57 GM TUBE TOP SCH ×2 (10:31→20:49)
[2021-03-09] MEDS ORDERED: VANCOMYCIN INJ 750 MG in SODIUM CHLORIDE 0.9% 250 ML IV ONE (11:00)
[2021-03-09] MEDS: oxyCODONE IR 5 MG TABLET PO PRN (15:12)
[2021-03-09] MEDS: FUROSEMIDE 40 MG/4 ML VIAL IV SCH ×2 (15:13→16:11)
[2021-03-09] MEDS: ENOXAPARIN 30 MG/0.3 ML SYRINGE SUBCUT SCH (20:49)
[2021-03-10] MEDS: ALBUTEROL/IPRATROPIUM 3 ML NEB RESP TX SCH ×4 (00:36→20:08)
[2021-03-10] MEDS: PIPERACILLIN/TAZOBACTAM 3,375 MG in SODIUM CHLORIDE 0.9% 100 ML IV SCH ×2 (04:49→16:50)
[2021-03-10 06:15] LABS: Basophils % 0.5 % (0.0-0.8); Eosinophils # 0.2 10*3/uL (0.0-0.87); Eosinophils % 2.7 % (0.00-10.9); Hematocrit 25.4 VOL% (35.7-47.0); Hemoglobin 8.3 GM/DL (12.0-16.0); Immature Granulocytes % 0.2 %; Immature Granulocytes Absolute 0.01 #; Lymphocytes # 2.1 10*3/uL (1.4-4.0); Lymphocytes % 37.6 % (21.3-54.2); Mean Corpuscular HGB Conc 32.7 GM/DL (32-36); Mean Corpuscular Volume 73.6 FL (87-102); Mean Platelet Volume 10.7 FL (9.6-12.0); Monocytes % 14.2 % (1.7-12.7); Neutrophils % 44.8 % (38.7-73.9); Platelet Count 229 T/CUMM (130-400); Red Blood Count 3.45 MC/CUMM (3.8-5.5); Red Cell Distribution Width 17.5 % (9.3-17.3); White Blood Count 5.6 T/CUMM (4-12)
[2021-03-10 06:40] LABS: Calcium 7.7 MG/DL (8.5-10.1); Osmolality,Calculated 307.4 MOS/KG (273-304); Potassium 3.6 MMOL/L (3.5-5.1)
[2021-03-10] MEDS ORDERED: MAGNESIUM SULF RIDER 2 GM/50 ML PREMIX IV ONE ×2 (08:01→10:41)
[2021-03-10] MEDS: METOPROLOL TARTRATE 50 MG TABLET PO SCH ×2 (09:16→21:16)
[2021-03-10] MEDS: SODIUM BICARBONATE 650 MG TABLET PO SCH ×3 (09:16→21:16)
[2021-03-10] MEDS: calcitrioL 0.25 MCG CAPSULE PO SCH (09:16)
[2021-03-10] MEDS: PANTOPRAZOLE 40 MG TABLET PO SCH (09:16)
[2021-03-10] MEDS: amLODIPine 10 MG TABLET PO SCH (09:17)
[2021-03-10] MEDS: GABAPENTIN 300 MG CAPSULE PO SCH ×2 (09:17→21:16)
[2021-03-10] MEDS: MONTELUKAST 10 MG TABLET PO SCH (09:24)
[2021-03-10] MEDS: FUROSEMIDE 40 MG/4 ML VIAL IV SCH ×3 (10:45→16:50)
[2021-03-10] MEDS: ZINC OXIDE 16% PASTE 57 GM TUBE TOP SCH ×2 (11:26→21:16)
[2021-03-10] MEDS: oxyCODONE IR 5 MG TABLET PO PRN (11:48)
[2021-03-10] MEDS ORDERED: MAGNESIUM CHLORIDE 64 MG TABLET PO ONE (13:00)
[2021-03-10] MEDS ORDERED: FUROSEMIDE 40 MG TABLET PO SCH (16:00)
[2021-03-10] MEDS: ENOXAPARIN 30 MG/0.3 ML SYRINGE SUBCUT SCH (21:16)
[2021-03-11] MEDS: ALBUTEROL/IPRATROPIUM 3 ML NEB RESP TX SCH ×4 (00:54→20:05)
[2021-03-11 05:27] LABS: Basophils % 0.4 % (0.0-0.8); Eosinophils # 0.1 10*3/uL (0.0-0.87); Eosinophils % 2.5 % (0.00-10.9); Hematocrit 22.2 VOL% (35.7-47.0); Hemoglobin 7.5 GM/DL (12.0-16.0); Immature Granulocytes % 0.4 %; Immature Granulocytes Absolute 0.02 #; Lymphocytes % 40.5 % (21.3-54.2); Mean Corpuscular HGB Conc 33.8 GM/DL (32-36); Mean Corpuscular Volume 73.5 FL (87-102); Mean Platelet Volume 10.7 FL (9.6-12.0); Monocytes % 12.5 % (1.7-12.7); Neutrophils % 43.7 % (38.7-73.9); Platelet Count 221 T/CUMM (130-400); Red Blood Count 3.02 MC/CUMM (3.8-5.5); Red Cell Distribution Width 17.3 % (9.3-17.3); White Blood Count 4.9 T/CUMM (4-12)
[2021-03-11 05:38] LABS: Calcium 7.2 MG/DL (8.5-10.1); Osmolality,Calculated 305.5 MOS/KG (273-304); Potassium 3.7 MMOL/L (3.5-5.1)
[2021-03-11] MEDS: GABAPENTIN 300 MG CAPSULE PO SCH ×2 (09:01→20:33)
[2021-03-11] MEDS: METOPROLOL TARTRATE 50 MG TABLET PO SCH ×2 (09:02→20:33)
[2021-03-11] MEDS: SODIUM BICARBONATE 650 MG TABLET PO SCH ×3 (09:02→20:33)
[2021-03-11] MEDS: calcitrioL 0.25 MCG CAPSULE PO SCH (09:03)
[2021-03-11] MEDS: MONTELUKAST 10 MG TABLET PO SCH (09:03)
[2021-03-11] MEDS: amLODIPine 10 MG TABLET PO SCH (09:03)
[2021-03-11] MEDS: FUROSEMIDE 40 MG/4 ML VIAL IV SCH ×2 (09:04→16:45)
[2021-03-11] MEDS: PANTOPRAZOLE 40 MG TABLET PO SCH (10:28)
[2021-03-11] MEDS: ZINC OXIDE 16% PASTE 57 GM TUBE TOP SCH ×2 (10:32→20:33)
[2021-03-11 16:08] LABS: INR 1.4
[2021-03-11] MEDS: ALBUMIN 25% 25 GM/100 ML VIAL IV SCH (17:08)
[2021-03-12] MEDS: ALBUTEROL/IPRATROPIUM 3 ML NEB RESP TX SCH ×4 (01:00→20:12)
[2021-03-12 05:15] LABS: Basophils % 0.2 % (0.0-0.8); Eosinophils # 0.1 10*3/uL (0.0-0.87); Eosinophils % 2.3 % (0.00-10.9); Hematocrit 22.5 VOL% (35.7-47.0); Hemoglobin 7.4 GM/DL (12.0-16.0); Immature Granulocytes % 0.8 %; Immature Granulocytes Absolute 0.04 #; Lymphocytes # 2.1 10*3/uL (1.4-4.0); Lymphocytes % 41.4 % (21.3-54.2); Mean Corpuscular HGB Conc 32.9 GM/DL (32-36); Mean Corpuscular Volume 73.8 FL (87-102); Monocytes % 14.4 % (1.7-12.7); Neutrophils % 40.9 % (38.7-73.9); Platelet Count 238 T/CUMM (130-400); Red Blood Count 3.05 MC/CUMM (3.8-5.5); Red Cell Distribution Width 17.4 % (9.3-17.3); White Blood Count 5.2 T/CUMM (4-12)
[2021-03-12 05:34] LABS: Osmolality,Calculated 306.5 MOS/KG (273-304); Potassium 3.8 MMOL/L (3.5-5.1)
[2021-03-12 05:35] LABS: Calcium 7.9 MG/DL (8.5-10.1); Osmolality,Calculated 307.3 MOS/KG (273-304); Potassium 3.9 MMOL/L (3.5-5.1)
[2021-03-12 05:43] LABS: Eosinophils 3 % (0-10); Lymphocytes 37 % (20-55); Platelet Estimate Adequate; Segmented Neutrophils 48 % (50-85); Total Cells Counted 100
[2021-03-12 05:44] LABS: Hypochromasia 1+; Target Cells Few
[2021-03-12] MEDS: GABAPENTIN 300 MG CAPSULE PO SCH ×2 (09:46→20:38)
[2021-03-12] MEDS: MONTELUKAST 10 MG TABLET PO SCH (09:46)
[2021-03-12] MEDS: amLODIPine 10 MG TABLET PO SCH (09:46)
[2021-03-12] MEDS: SODIUM BICARBONATE 650 MG TABLET PO SCH ×3 (09:46→20:38)
[2021-03-12] MEDS: PANTOPRAZOLE 40 MG TABLET PO SCH (09:46)
[2021-03-12] MEDS: METOPROLOL TARTRATE 50 MG TABLET PO SCH ×2 (09:47→20:38)
[2021-03-12] MEDS: calcitrioL 0.25 MCG CAPSULE PO SCH (09:47)
[2021-03-12] MEDS: FUROSEMIDE 40 MG/4 ML VIAL IV SCH ×2 (09:47→16:05)
[2021-03-12] MEDS: ALBUMIN 25% 25 GM/100 ML VIAL IV SCH ×2 (09:47→20:44)
[2021-03-12 10:51] LABS: Lymphocytes,Pleural Fluid 83 %; Monocytes,Pleural Fluid 8 %; Neutrophils,Pleural Fluid 8 %; RBC,Pleural Fluid < 1 T/CUMM
[2021-03-12 10:59] LABS: Amylase,Pleural Fluid 40 U/L; Glucose,Pleural Fluid 85 MG/DL; Total Protein,Pleural Fluid 1.1 G/DL
[2021-03-12] MEDS: ZINC OXIDE 16% PASTE 57 GM TUBE TOP SCH ×2 (11:39→22:13)
[2021-03-12] MEDS: oxyCODONE IR 5 MG TABLET PO PRN (12:09)
[2021-03-12] MEDS ORDERED: SODIUM CHLORIDE 0.9% 1,000 ML IV PRN ×2 (13:42→15:27)
[2021-03-13] MEDS: ALBUTEROL/IPRATROPIUM 3 ML NEB RESP TX SCH ×4 (00:35→20:38)
[2021-03-13 02:39] LABS: Basophils % 0.3 % (0.0-0.8); Eosinophils # 0.1 10*3/uL (0.0-0.87); Eosinophils % 1.7 % (0.00-10.9); Hematocrit 25.2 VOL% (35.7-47.0); Hemoglobin 8.1 GM/DL (12.0-16.0); Immature Granulocytes % 0.2 %; Immature Granulocytes Absolute 0.01 #; Lymphocytes # 2.4 10*3/uL (1.4-4.0); Lymphocytes % 40.5 % (21.3-54.2); Mean Corpuscular HGB Conc 32.1 GM/DL (32-36); Mean Corpuscular Volume 75.2 FL (87-102); Mean Platelet Volume 9.7 FL (9.6-12.0); Monocytes % 10.7 % (1.7-12.7); Neutrophils % 46.6 % (38.7-73.9); Platelet Count 248 T/CUMM (130-400); Red Blood Count 3.35 MC/CUMM (3.8-5.5); Red Cell Distribution Width 17.4 % (9.3-17.3); White Blood Count 5.8 T/CUMM (4-12)
[2021-03-13 03:03] LABS: Calcium 8.2 MG/DL (8.5-10.1); Osmolality,Calculated 302.7 MOS/KG (273-304); Potassium 3.9 MMOL/L (3.5-5.1)
[2021-03-13] MEDS: FUROSEMIDE 40 MG/4 ML VIAL IV SCH ×2 (09:01→16:01)
[2021-03-13] MEDS: METOPROLOL TARTRATE 50 MG TABLET PO SCH ×2 (09:02→20:34)
[2021-03-13] MEDS: SODIUM BICARBONATE 650 MG TABLET PO SCH ×3 (09:02→20:35)
[2021-03-13] MEDS: PANTOPRAZOLE 40 MG TABLET PO SCH (09:02)
[2021-03-13] MEDS: amLODIPine 10 MG TABLET PO SCH (09:02)
[2021-03-13] MEDS: calcitrioL 0.25 MCG CAPSULE PO SCH (09:02)
[2021-03-13] MEDS: GABAPENTIN 300 MG CAPSULE PO SCH ×2 (09:02→20:34)
[2021-03-13] MEDS: MONTELUKAST 10 MG TABLET PO SCH (09:02)
[2021-03-13] MEDS: ALBUMIN 25% 25 GM/100 ML VIAL IV SCH ×2 (09:03→20:39)
[2021-03-13] MEDS: ZINC OXIDE 16% PASTE 57 GM TUBE TOP SCH ×2 (10:09→22:47)
[2021-03-13] MEDS: ENOXAPARIN 30 MG/0.3 ML SYRINGE SUBCUT SCH (22:47)
[2021-03-14] MEDS: ALBUTEROL/IPRATROPIUM 3 ML NEB RESP TX SCH ×5 (02:18→19:50)
[2021-03-14 05:09] LABS: Basophils % 0.3 % (0.0-0.8); Eosinophils # 0.1 10*3/uL (0.0-0.87); Eosinophils % 2.3 % (0.00-10.9); Hemoglobin 8.5 GM/DL (12.0-16.0); Immature Granulocytes % 0.3 %; Immature Granulocytes Absolute 0.02 #; Lymphocytes # 2.6 10*3/uL (1.4-4.0); Lymphocytes % 42.1 % (21.3-54.2); Mean Corpuscular HGB Conc 32.7 GM/DL (32-36); Mean Corpuscular Volume 75.4 FL (87-102); Monocytes % 10.9 % (1.7-12.7); Neutrophils % 44.1 % (38.7-73.9); Platelet Count 275 T/CUMM (130-400); Red Blood Count 3.45 MC/CUMM (3.8-5.5); Red Cell Distribution Width 17.6 % (9.3-17.3); White Blood Count 6.1 T/CUMM (4-12)
[2021-03-14 05:33] LABS: Calcium 8.7 MG/DL (8.5-10.1); Osmolality,Calculated 308.3 MOS/KG (273-304)
[2021-03-14] MEDS: METOPROLOL TARTRATE 50 MG TABLET PO SCH ×2 (09:32→23:08)
[2021-03-14] MEDS: amLODIPine 10 MG TABLET PO SCH (09:32)
[2021-03-14] MEDS: PANTOPRAZOLE 40 MG TABLET PO SCH (09:32)
[2021-03-14] MEDS: SODIUM BICARBONATE 650 MG TABLET PO SCH ×3 (09:32→23:09)
[2021-03-14] MEDS: FUROSEMIDE 40 MG/4 ML VIAL IV SCH ×2 (09:32→16:23)
[2021-03-14] MEDS: GABAPENTIN 300 MG CAPSULE PO SCH ×2 (09:32→23:08)
[2021-03-14] MEDS: calcitrioL 0.25 MCG CAPSULE PO SCH (09:32)
[2021-03-14] MEDS: MONTELUKAST 10 MG TABLET PO SCH (09:32)
[2021-03-14] MEDS: ZINC OXIDE 16% PASTE 57 GM TUBE TOP SCH ×2 (09:33→23:09)
[2021-03-14] MEDS: ALBUMIN 25% 25 GM/100 ML VIAL IV SCH ×2 (09:34→22:03)
[2021-03-14] MEDS: oxyCODONE IR 5 MG TABLET PO PRN (16:23)
[2021-03-14] MEDS: ENOXAPARIN 30 MG/0.3 ML SYRINGE SUBCUT SCH (23:08)
[2021-03-15] MEDS: ALBUTEROL/IPRATROPIUM 3 ML NEB RESP TX SCH ×4 (00:02→19:46)
[2021-03-15] MEDS: oxyCODONE IR 5 MG TABLET PO PRN (08:53)
[2021-03-15] MEDS: PANTOPRAZOLE 40 MG TABLET PO SCH (10:18)
[2021-03-15] MEDS: GABAPENTIN 300 MG CAPSULE PO SCH ×2 (10:18→21:52)
[2021-03-15] MEDS: MONTELUKAST 10 MG TABLET PO SCH (10:18)
[2021-03-15] MEDS: amLODIPine 10 MG TABLET PO SCH (10:18)
[2021-03-15] MEDS: calcitrioL 0.25 MCG CAPSULE PO SCH (10:19)
[2021-03-15] MEDS: SODIUM BICARBONATE 650 MG TABLET PO SCH ×3 (10:19→21:53)
[2021-03-15] MEDS: METOPROLOL TARTRATE 50 MG TABLET PO SCH ×2 (10:19→21:52)
[2021-03-15] MEDS: FUROSEMIDE 40 MG/4 ML VIAL IV SCH ×2 (10:25→15:49)
[2021-03-15] MEDS: ALBUMIN 25% 25 GM/100 ML VIAL IV SCH ×2 (10:33→21:54)
[2021-03-15] MEDS: ZINC OXIDE 16% PASTE 57 GM TUBE TOP SCH ×2 (10:40→21:55)
[2021-03-15] MEDS: ENOXAPARIN 30 MG/0.3 ML SYRINGE SUBCUT SCH (21:52)
[2021-03-16] MEDS: ALBUTEROL/IPRATROPIUM 3 ML NEB RESP TX SCH ×4 (01:13→20:14)
[2021-03-16 06:33] LABS: Basophils % 0.1 % (0.0-0.8); Eosinophils # 0.1 10*3/uL (0.0-0.87); Eosinophils % 1.9 % (0.00-10.9); Hematocrit 25.6 VOL% (35.7-47.0); Hemoglobin 8.1 GM/DL (12.0-16.0); Immature Granulocytes % 0.3 %; Immature Granulocytes Absolute 0.02 #; Lymphocytes # 2.8 10*3/uL (1.4-4.0); Lymphocytes % 42.3 % (21.3-54.2); Mean Corpuscular HGB Conc 31.6 GM/DL (32-36); Mean Corpuscular Volume 76.2 FL (87-102); Mean Platelet Volume 10.3 FL (9.6-12.0); Monocytes % 10.6 % (1.7-12.7); Neutrophils % 44.8 % (38.7-73.9); Platelet Count 303 T/CUMM (130-400); Red Blood Count 3.36 MC/CUMM (3.8-5.5); Red Cell Distribution Width 17.9 % (9.3-17.3); White Blood Count 6.7 T/CUMM (4-12)
[2021-03-16 06:50] LABS: Calcium 8.8 MG/DL (8.5-10.1); Osmolality,Calculated 302.5 MOS/KG (273-304); Potassium 4.1 MMOL/L (3.5-5.1)
[2021-03-16] MEDS: calcitrioL 0.25 MCG CAPSULE PO SCH (08:37)
[2021-03-16] MEDS: GABAPENTIN 300 MG CAPSULE PO SCH ×2 (08:37→20:47)
[2021-03-16] MEDS: amLODIPine 10 MG TABLET PO SCH (08:37)
[2021-03-16] MEDS: METOPROLOL TARTRATE 50 MG TABLET PO SCH ×2 (08:37→20:47)
[2021-03-16] MEDS: PANTOPRAZOLE 40 MG TABLET PO SCH (08:37)
[2021-03-16] MEDS: SODIUM BICARBONATE 650 MG TABLET PO SCH ×3 (08:38→20:46)
[2021-03-16] MEDS: oxyCODONE IR 5 MG TABLET PO PRN ×2 (08:38→15:12)
[2021-03-16] MEDS: MONTELUKAST 10 MG TABLET PO SCH (08:38)
[2021-03-16] MEDS: ALBUMIN 25% 25 GM/100 ML VIAL IV SCH ×2 (08:39→20:46)
[2021-03-16] MEDS: ZINC OXIDE 16% PASTE 57 GM TUBE TOP SCH ×2 (08:39→20:47)
[2021-03-16] MEDS: FUROSEMIDE 40 MG/4 ML VIAL IV SCH ×2 (08:39→15:12)
[2021-03-16] MEDS: ENOXAPARIN 30 MG/0.3 ML SYRINGE SUBCUT SCH (20:46)
[2021-03-17] MEDS: ALBUTEROL/IPRATROPIUM 3 ML NEB RESP TX SCH ×4 (00:47→19:23)
[2021-03-17 05:47] LABS: Basophils % 0.4 % (0.0-0.8); Eosinophils # 0.2 10*3/uL (0.0-0.87); Eosinophils % 2.5 % (0.00-10.9); Hematocrit 24.6 VOL% (35.7-47.0); Hemoglobin 8.1 GM/DL (12.0-16.0); Immature Granulocytes % 0.4 %; Immature Granulocytes Absolute 0.03 #; Lymphocytes # 3.1 10*3/uL (1.4-4.0); Lymphocytes % 44.4 % (21.3-54.2); Mean Corpuscular HGB Conc 32.9 GM/DL (32-36); Mean Corpuscular Volume 75.9 FL (87-102); Mean Platelet Volume 10.4 FL (9.6-12.0); Neutrophils % 41.3 % (38.7-73.9); Platelet Count 308 T/CUMM (130-400); Red Blood Count 3.24 MC/CUMM (3.8-5.5); Red Cell Distribution Width 18.1 % (9.3-17.3); White Blood Count 6.9 T/CUMM (4-12)
[2021-03-17 06:10] LABS: Hypochromasia 2+; Target Cells Few
[2021-03-17 06:11] LABS: Microcytosis 1+; Ovalocytes Few; Platelet Estimate Normal
[2021-03-17 06:20] LABS: Calcium 9.2 MG/DL (8.5-10.1); Osmolality,Calculated 307.4 MOS/KG (273-304)
[2021-03-17] MEDS: FUROSEMIDE 40 MG/4 ML VIAL IV SCH ×2 (09:04→16:31)
[2021-03-17] MEDS: calcitrioL 0.25 MCG CAPSULE PO SCH (09:05)
[2021-03-17] MEDS: PANTOPRAZOLE 40 MG TABLET PO SCH (09:05)
[2021-03-17] MEDS: amLODIPine 10 MG TABLET PO SCH (09:05)
[2021-03-17] MEDS: GABAPENTIN 300 MG CAPSULE PO SCH ×2 (09:05→21:44)
[2021-03-17] MEDS: METOPROLOL TARTRATE 50 MG TABLET PO SCH ×2 (09:05→21:45)
[2021-03-17] MEDS: ZINC OXIDE 16% PASTE 57 GM TUBE TOP SCH ×2 (09:05→21:46)
[2021-03-17] MEDS: SODIUM BICARBONATE 650 MG TABLET PO SCH ×3 (09:05→21:44)
[2021-03-17] MEDS: MONTELUKAST 10 MG TABLET PO SCH (09:05)
[2021-03-17] MEDS: ALBUMIN 25% 25 GM/100 ML VIAL IV SCH ×2 (09:50→21:45)
[2021-03-17] MEDS ORDERED: SODIUM CHLORIDE 0.45% 1,000 ML IV SCH (11:00)
[2021-03-17] MEDS ORDERED: DIAZEPAM 5 MG TABLET PO ONE (11:30)
[2021-03-17] MEDS: oxyCODONE IR 5 MG TABLET PO PRN (21:45)
[2021-03-18] MEDS: ALBUTEROL/IPRATROPIUM 3 ML NEB RESP TX SCH ×4 (00:06→20:16)
[2021-03-18 06:28] LABS: Basophils % 0.2 % (0.0-0.8); Eosinophils # 0.1 10*3/uL (0.0-0.87); Eosinophils % 1.9 % (0.00-10.9); Hematocrit 24.6 VOL% (35.7-47.0); Hemoglobin 7.9 GM/DL (12.0-16.0); Immature Granulocytes % 0.2 %; Immature Granulocytes Absolute 0.01 #; Lymphocytes # 2.6 10*3/uL (1.4-4.0); Lymphocytes % 41.1 % (21.3-54.2); Mean Corpuscular HGB Conc 32.1 GM/DL (32-36); Mean Corpuscular Volume 76.2 FL (87-102); Mean Platelet Volume 10.3 FL (9.6-12.0); Monocytes % 13.9 % (1.7-12.7); Neutrophils % 42.7 % (38.7-73.9); Platelet Count 292 T/CUMM (130-400); Red Blood Count 3.23 MC/CUMM (3.8-5.5); Red Cell Distribution Width 18.3 % (9.3-17.3); White Blood Count 6.4 T/CUMM (4-12)
[2021-03-18 06:43] LABS: Osmolality,Calculated 304.5 MOS/KG (273-304); Potassium 4.3 MMOL/L (3.5-5.1)
[2021-03-18] MEDS: ZINC OXIDE 16% PASTE 57 GM TUBE TOP SCH ×2 (09:29→21:06)
[2021-03-18] MEDS ORDERED: DIAZEPAM 5 MG TABLET PO ONE (09:30)
[2021-03-18] MEDS: GABAPENTIN 300 MG CAPSULE PO SCH ×2 (12:12→21:05)
[2021-03-18] MEDS: METOPROLOL TARTRATE 50 MG TABLET PO SCH ×2 (12:12→21:05)
[2021-03-18] MEDS: calcitrioL 0.25 MCG CAPSULE PO SCH (12:12)
[2021-03-18] MEDS: SODIUM BICARBONATE 650 MG TABLET PO SCH ×3 (12:12→21:04)
[2021-03-18] MEDS: FUROSEMIDE 40 MG/4 ML VIAL IV SCH ×2 (12:13→16:37)
[2021-03-18] MEDS: PANTOPRAZOLE 40 MG TABLET PO SCH (12:13)
[2021-03-18] MEDS: amLODIPine 10 MG TABLET PO SCH (12:13)
[2021-03-18] MEDS: MONTELUKAST 10 MG TABLET PO SCH (12:13)
[2021-03-18] MEDS: ALBUMIN 25% 25 GM/100 ML VIAL IV SCH ×2 (12:14→21:05)
[2021-03-19] MEDS: ALBUTEROL/IPRATROPIUM 3 ML NEB RESP TX SCH ×5 (01:43→19:58)
[2021-03-19 05:38] LABS: Basophils % 0.3 % (0.0-0.8); Eosinophils # 0.1 10*3/uL (0.0-0.87); Hematocrit 24.2 VOL% (35.7-47.0); Hemoglobin 7.7 GM/DL (12.0-16.0); Immature Granulocytes % 0.3 %; Immature Granulocytes Absolute 0.02 #; Lymphocytes # 2.6 10*3/uL (1.4-4.0); Lymphocytes % 37.7 % (21.3-54.2); Mean Corpuscular HGB Conc 31.8 GM/DL (32-36); Mean Corpuscular Volume 76.3 FL (87-102); Mean Platelet Volume 10.9 FL (9.6-12.0); Monocytes % 13.3 % (1.7-12.7); Neutrophils % 46.4 % (38.7-73.9); Platelet Count 287 T/CUMM (130-400); Red Blood Count 3.17 MC/CUMM (3.8-5.5); Red Cell Distribution Width 18.2 % (9.3-17.3); White Blood Count 6.9 T/CUMM (4-12)
[2021-03-19 05:56] LABS: Osmolality,Calculated 305.4 MOS/KG (273-304); Potassium 4.4 MMOL/L (3.5-5.1)
[2021-03-19 06:00] LABS: Hypochromasia 2+; Microcytosis 1+; Ovalocytes Few; Target Cells 1+
[2021-03-19 06:01] LABS: Platelet Estimate Normal
[2021-03-19] MEDS: amLODIPine 10 MG TABLET PO SCH (09:13)
[2021-03-19] MEDS: SODIUM BICARBONATE 650 MG TABLET PO SCH ×3 (09:13→20:42)
[2021-03-19] MEDS: FUROSEMIDE 40 MG/4 ML VIAL IV SCH ×2 (09:14→17:00)
[2021-03-19] MEDS: METOPROLOL TARTRATE 50 MG TABLET PO SCH ×2 (09:14→20:15)
[2021-03-19] MEDS: ZINC OXIDE 16% PASTE 57 GM TUBE TOP SCH ×2 (09:14→20:15)
[2021-03-19] MEDS: MONTELUKAST 10 MG TABLET PO SCH (09:14)
[2021-03-19] MEDS: PANTOPRAZOLE 40 MG TABLET PO SCH (09:14)
[2021-03-19] MEDS: calcitrioL 0.25 MCG CAPSULE PO SCH (09:14)
[2021-03-19] MEDS: ALBUMIN 25% 25 GM/100 ML VIAL IV SCH ×2 (09:18→21:08)
[2021-03-19] MEDS: GABAPENTIN 300 MG CAPSULE PO SCH ×2 (09:18→20:16)
[2021-03-19] MEDS: ENOXAPARIN 30 MG/0.3 ML SYRINGE SUBCUT SCH (20:15)
[2021-03-20] MEDS: ALBUTEROL/IPRATROPIUM 3 ML NEB RESP TX SCH ×6 (00:26→19:44)
[2021-03-20 07:42] LABS: Basophils % 0.5 % (0.0-0.8); Eosinophils # 0.1 10*3/uL (0.0-0.87); Eosinophils % 1.8 % (0.00-10.9); Hematocrit 24.8 VOL% (35.7-47.0); Immature Granulocytes % 0.2 %; Immature Granulocytes Absolute 0.01 #; Lymphocytes # 2.3 10*3/uL (1.4-4.0); Lymphocytes % 35.2 % (21.3-54.2); Mean Corpuscular HGB Conc 32.3 GM/DL (32-36); Mean Corpuscular Volume 76.5 FL (87-102); Mean Platelet Volume 9.6 FL (9.6-12.0); Monocytes % 14.2 % (1.7-12.7); Neutrophils % 48.1 % (38.7-73.9); Platelet Count 252 T/CUMM (130-400); Red Blood Count 3.24 MC/CUMM (3.8-5.5); Red Cell Distribution Width 18.1 % (9.3-17.3); White Blood Count 6.6 T/CUMM (4-12)
[2021-03-20 07:58] LABS: Calcium 9.3 MG/DL (8.5-10.1); Osmolality,Calculated 303.5 MOS/KG (273-304); Potassium 4.5 MMOL/L (3.5-5.1)
[2021-03-20] MEDS: MONTELUKAST 10 MG TABLET PO SCH (09:53)
[2021-03-20] MEDS: PANTOPRAZOLE 40 MG TABLET PO SCH (09:54)
[2021-03-20] MEDS: amLODIPine 10 MG TABLET PO SCH (09:54)
[2021-03-20] MEDS: calcitrioL 0.25 MCG CAPSULE PO SCH (09:54)
[2021-03-20] MEDS: SODIUM BICARBONATE 650 MG TABLET PO SCH ×3 (09:54→21:47)
[2021-03-20] MEDS: GABAPENTIN 300 MG CAPSULE PO SCH ×2 (09:54→21:47)
[2021-03-20] MEDS: FUROSEMIDE 40 MG/4 ML VIAL IV SCH ×2 (09:55→15:12)
[2021-03-20] MEDS: METOPROLOL TARTRATE 50 MG TABLET PO SCH ×2 (10:03→21:47)
[2021-03-20] MEDS: ZINC OXIDE 16% PASTE 57 GM TUBE TOP SCH ×2 (10:07→21:47)
[2021-03-20] MEDS: ALBUMIN 25% 25 GM/100 ML VIAL IV SCH ×2 (14:54→21:47)
[2021-03-20 16:03] LABS: Folate 16.89 NG/ML (5.38-24.0)
[2021-03-20] MEDS: ENOXAPARIN 30 MG/0.3 ML SYRINGE SUBCUT SCH ×2 (21:00→21:46)
[2021-03-21] MEDS: ALBUTEROL/IPRATROPIUM 3 ML NEB RESP TX SCH ×7 (00:15→23:27)
[2021-03-21 05:12] LABS: Basophils % 0.3 % (0.0-0.8); Eosinophils # 0.1 10*3/uL (0.0-0.87); Eosinophils % 1.4 % (0.00-10.9); Hematocrit 24.1 VOL% (35.7-47.0); Hemoglobin 7.6 GM/DL (12.0-16.0); Immature Granulocytes % 0.1 %; Immature Granulocytes Absolute 0.01 #; Lymphocytes # 2.9 10*3/uL (1.4-4.0); Lymphocytes % 41.5 % (21.3-54.2); Mean Corpuscular HGB Conc 31.5 GM/DL (32-36); Mean Corpuscular Volume 75.1 FL (87-102); Monocytes % 15.9 % (1.7-12.7); Neutrophils % 40.8 % (38.7-73.9); Platelet Count 235 T/CUMM (130-400); Red Blood Count 3.21 MC/CUMM (3.8-5.5); Red Cell Distribution Width 17.8 % (9.3-17.3); White Blood Count 6.9 T/CUMM (4-12)
[2021-03-21 05:33] LABS: Calcium 9.1 MG/DL (8.5-10.1); Osmolality,Calculated 303.5 MOS/KG (273-304); Potassium 4.3 MMOL/L (3.5-5.1)
[2021-03-21 05:43] LABS: Atypical Lymphocytes Few; Hypochromasia 2+; Lymphocytes 46 % (20-55); Segmented Neutrophils 43 % (50-85); Total Cells Counted 100
[2021-03-21 05:44] LABS: Microcytosis 1+; Ovalocytes Few; Target Cells 1+
[2021-03-21 05:46] LABS: Platelet Estimate Normal
[2021-03-21] MEDS: PANTOPRAZOLE 40 MG TABLET PO SCH (09:11)
[2021-03-21] MEDS: FERROUS SULFATE 325 MG TABLET PO SCH (09:11)
[2021-03-21] MEDS: GABAPENTIN 300 MG CAPSULE PO SCH ×2 (09:11→21:23)
[2021-03-21] MEDS: SODIUM BICARBONATE 650 MG TABLET PO SCH ×3 (09:11→21:23)
[2021-03-21] MEDS: amLODIPine 10 MG TABLET PO SCH (09:11)
[2021-03-21] MEDS: MONTELUKAST 10 MG TABLET PO SCH (09:11)
[2021-03-21] MEDS: calcitrioL 0.25 MCG CAPSULE PO SCH (09:11)
[2021-03-21] MEDS: METOPROLOL TARTRATE 50 MG TABLET PO SCH ×2 (09:11→21:22)
[2021-03-21] MEDS: ZINC OXIDE 16% PASTE 57 GM TUBE TOP SCH ×2 (09:12→21:22)
[2021-03-21] MEDS: ALBUMIN 25% 25 GM/100 ML VIAL IV SCH ×2 (09:12→21:22)
[2021-03-21] MEDS: FUROSEMIDE 40 MG/4 ML VIAL IV SCH ×2 (09:12→15:36)
[2021-03-21] MEDS ORDERED: DIAZEPAM 5 MG TABLET PO ONE (09:50)
[2021-03-21] MEDS: ENOXAPARIN 30 MG/0.3 ML SYRINGE SUBCUT SCH (21:22)
[2021-03-22] MEDS: ALBUTEROL/IPRATROPIUM 3 ML NEB RESP TX SCH ×6 (03:14→23:47)
[2021-03-22 06:42] LABS: Basophils % 0.5 % (0.0-0.8); Eosinophils # 0.1 10*3/uL (0.0-0.87); Eosinophils % 0.8 % (0.00-10.9); Hematocrit 24.4 VOL% (35.7-47.0); Hemoglobin 7.9 GM/DL (12.0-16.0); Immature Granulocytes % 0.5 %; Immature Granulocytes Absolute 0.04 #; Lymphocytes # 2.5 10*3/uL (1.4-4.0); Lymphocytes % 31.8 % (21.3-54.2); Mean Corpuscular HGB Conc 32.4 GM/DL (32-36); Mean Corpuscular Volume 75.3 FL (87-102); Mean Platelet Volume 11.3 FL (9.6-12.0); Monocytes % 14.1 % (1.7-12.7); Neutrophils % 52.3 % (38.7-73.9); Platelet Count 241 T/CUMM (130-400); Red Blood Count 3.24 MC/CUMM (3.8-5.5); Red Cell Distribution Width 17.9 % (9.3-17.3); White Blood Count 7.9 T/CUMM (4-12)
[2021-03-22 07:06] LABS: Calcium 9.1 MG/DL (8.5-10.1); Osmolality,Calculated 304.4 MOS/KG (273-304); Potassium 4.7 MMOL/L (3.5-5.1)
[2021-03-22] MEDS: FUROSEMIDE 40 MG/4 ML VIAL IV SCH ×2 (08:30→16:10)
[2021-03-22] MEDS: ALBUMIN 25% 25 GM/100 ML VIAL IV SCH ×2 (08:30→20:30)
[2021-03-22] MEDS: PANTOPRAZOLE 40 MG TABLET PO SCH (08:31)
[2021-03-22] MEDS: calcitrioL 0.25 MCG CAPSULE PO SCH (08:31)
[2021-03-22] MEDS: SODIUM BICARBONATE 650 MG TABLET PO SCH ×3 (08:31→20:31)
[2021-03-22] MEDS: GABAPENTIN 300 MG CAPSULE PO SCH ×2 (08:31→20:31)
[2021-03-22] MEDS: MONTELUKAST 10 MG TABLET PO SCH (08:31)
[2021-03-22] MEDS: FERROUS SULFATE 325 MG TABLET PO SCH (08:31)
[2021-03-22] MEDS: METOPROLOL TARTRATE 50 MG TABLET PO SCH ×2 (08:31→21:45)
[2021-03-22] MEDS: amLODIPine 10 MG TABLET PO SCH (08:31)
[2021-03-22] MEDS: ZINC OXIDE 16% PASTE 57 GM TUBE TOP SCH ×2 (08:32→21:45)
[2021-03-22] MEDS: ENOXAPARIN 30 MG/0.3 ML SYRINGE SUBCUT SCH (20:31)
[2021-03-23] MEDS: ALBUTEROL/IPRATROPIUM 3 ML NEB RESP TX SCH ×5 (03:14→20:12)
[2021-03-23 06:34] LABS: Basophils % 0.4 % (0.0-0.8); Eosinophils # 0.1 10*3/uL (0.0-0.87); Eosinophils % 1.8 % (0.00-10.9); Hematocrit 24.4 VOL% (35.7-47.0); Hemoglobin 7.8 GM/DL (12.0-16.0); Immature Granulocytes % 0.4 %; Immature Granulocytes Absolute 0.03 #; Lymphocytes # 3.3 10*3/uL (1.4-4.0); Lymphocytes % 45.7 % (21.3-54.2); Mean Corpuscular Volume 75.1 FL (87-102); Mean Platelet Volume 10.7 FL (9.6-12.0); Monocytes % 16.1 % (1.7-12.7); Neutrophils % 35.6 % (38.7-73.9); Platelet Count 206 T/CUMM (130-400); Red Blood Count 3.25 MC/CUMM (3.8-5.5); Red Cell Distribution Width 17.9 % (9.3-17.3); White Blood Count 7.3 T/CUMM (4-12)
[2021-03-23 07:05] LABS: Calcium 9.1 MG/DL (8.5-10.1); Osmolality,Calculated 302.7 MOS/KG (273-304); Potassium 4.2 MMOL/L (3.5-5.1)
[2021-03-23 07:30] LABS: Anisocytosis 2+; Band Neutrophils 2 % (0-10); Hypochromasia 1+; Lymphocytes 46 % (20-55); Ovalocytes 1+; Platelet Estimate Normal; Poikilocytosis 1+; Segmented Neutrophils 36 % (50-85); Target Cells 1+; Total Cells Counted 100
[2021-03-23 07:31] LABS: Macrocytosis 1+
[2021-03-23] MEDS: ALBUMIN 25% 25 GM/100 ML VIAL IV SCH ×2 (09:00→22:17)
[2021-03-23] MEDS: MONTELUKAST 10 MG TABLET PO SCH (09:28)
[2021-03-23] MEDS: ZINC OXIDE 16% PASTE 57 GM TUBE TOP SCH ×2 (09:28→21:45)
[2021-03-23] MEDS: FUROSEMIDE 40 MG/4 ML VIAL IV SCH ×2 (09:28→17:22)
[2021-03-23] MEDS: calcitrioL 0.25 MCG CAPSULE PO SCH (09:28)
[2021-03-23] MEDS: amLODIPine 10 MG TABLET PO SCH (09:28)
[2021-03-23] MEDS: FERROUS SULFATE 325 MG TABLET PO SCH ×2 (09:28→21:45)
[2021-03-23] MEDS: METOPROLOL TARTRATE 50 MG TABLET PO SCH ×2 (09:29→21:45)
[2021-03-23] MEDS: GABAPENTIN 300 MG CAPSULE PO SCH ×2 (09:29→21:45)
[2021-03-23] MEDS: SODIUM BICARBONATE 650 MG TABLET PO SCH ×3 (09:29→21:45)
[2021-03-23] MEDS: PANTOPRAZOLE 40 MG TABLET PO SCH (10:20)
[2021-03-23] MEDS: ENOXAPARIN 30 MG/0.3 ML SYRINGE SUBCUT SCH (21:45)
[2021-03-24] MEDS: ALBUTEROL/IPRATROPIUM 3 ML NEB RESP TX SCH ×6 (00:38→20:35)
[2021-03-24 06:06] LABS: Basophils % 0.4 % (0.0-0.8); Eosinophils # 0.2 10*3/uL (0.0-0.87); Eosinophils % 1.9 % (0.00-10.9); Hematocrit 24.6 VOL% (35.7-47.0); Hemoglobin 7.9 GM/DL (12.0-16.0); Immature Granulocytes % 0.3 %; Immature Granulocytes Absolute 0.02 #; Lymphocytes % 37.6 % (21.3-54.2); Mean Corpuscular HGB Conc 32.1 GM/DL (32-36); Mean Corpuscular Volume 74.5 FL (87-102); Mean Platelet Volume 10.7 FL (9.6-12.0); Monocytes % 13.8 % (1.7-12.7); Platelet Count 219 T/CUMM (130-400); White Blood Count 7.9 T/CUMM (4-12)
[2021-03-24 06:42] LABS: Calcium 9.1 MG/DL (8.5-10.1); Osmolality,Calculated 301.5 MOS/KG (273-304); Potassium 4.3 MMOL/L (3.5-5.1)
[2021-03-24] MEDS: MONTELUKAST 10 MG TABLET PO SCH (08:45)
[2021-03-24] MEDS: GABAPENTIN 300 MG CAPSULE PO SCH ×2 (08:45→20:55)
[2021-03-24] MEDS: SODIUM BICARBONATE 650 MG TABLET PO SCH ×3 (08:45→20:55)
[2021-03-24] MEDS: calcitrioL 0.25 MCG CAPSULE PO SCH (08:45)
[2021-03-24] MEDS: amLODIPine 10 MG TABLET PO SCH (08:45)
[2021-03-24] MEDS: FERROUS SULFATE 325 MG TABLET PO SCH ×2 (08:46→20:56)
[2021-03-24] MEDS: METOPROLOL TARTRATE 50 MG TABLET PO SCH ×2 (08:46→20:55)
[2021-03-24] MEDS: ZINC OXIDE 16% PASTE 57 GM TUBE TOP SCH ×2 (08:47→20:56)
[2021-03-24] MEDS: PANTOPRAZOLE 40 MG TABLET PO SCH (09:04)
[2021-03-24] MEDS: FUROSEMIDE 40 MG/4 ML VIAL IV SCH ×2 (09:29→16:25)
[2021-03-24] MEDS: ALBUMIN 25% 25 GM/100 ML VIAL IV SCH (09:35)
[2021-03-24] MEDS: ENOXAPARIN 30 MG/0.3 ML SYRINGE SUBCUT SCH (20:55)
[2021-03-25] MEDS: ALBUTEROL/IPRATROPIUM 3 ML NEB RESP TX SCH ×6 (01:11→20:36)
[2021-03-25] MEDS: GABAPENTIN 300 MG CAPSULE PO SCH ×2 (09:22→21:25)
[2021-03-25] MEDS: MONTELUKAST 10 MG TABLET PO SCH (09:22)
[2021-03-25] MEDS: FUROSEMIDE 80 MG TABLET PO SCH ×2 (09:22→15:19)
[2021-03-25] MEDS: ZINC OXIDE 16% PASTE 57 GM TUBE TOP SCH ×2 (09:23→21:26)
[2021-03-25] MEDS: calcitrioL 0.25 MCG CAPSULE PO SCH (09:23)
[2021-03-25] MEDS: SODIUM BICARBONATE 650 MG TABLET PO SCH ×3 (09:23→21:25)
[2021-03-25] MEDS: amLODIPine 10 MG TABLET PO SCH (09:23)
[2021-03-25] MEDS: PANTOPRAZOLE 40 MG TABLET PO SCH (09:23)
[2021-03-25] MEDS: FERROUS SULFATE 325 MG TABLET PO SCH ×2 (09:23→21:25)
[2021-03-25] MEDS: METOPROLOL TARTRATE 50 MG TABLET PO SCH ×2 (09:23→21:25)
[2021-03-25] MEDS ORDERED: DARBEPOETIN ALFA 100 MCG/ML VIAL SUBCUT ONE ×2 (18:22→21:00)
[2021-03-25] MEDS: ENOXAPARIN 30 MG/0.3 ML SYRINGE SUBCUT SCH (21:24)
[2021-03-26] MEDS: ALBUTEROL/IPRATROPIUM 3 ML NEB RESP TX SCH ×7 (00:15→23:45)
[2021-03-26 05:56] LABS: Basophils % 0.4 % (0.0-0.8); Eosinophils # 0.2 10*3/uL (0.0-0.87); Eosinophils % 2.1 % (0.00-10.9); Hematocrit 26.4 VOL% (35.7-47.0); Hemoglobin 8.2 GM/DL (12.0-16.0); Immature Granulocytes % 0.3 %; Immature Granulocytes Absolute 0.02 #; Lymphocytes # 2.8 10*3/uL (1.4-4.0); Lymphocytes % 39.7 % (21.3-54.2); Mean Corpuscular HGB Conc 31.1 GM/DL (32-36); Mean Corpuscular Volume 75.6 FL (87-102); Mean Platelet Volume 10.3 FL (9.6-12.0); Monocytes % 11.8 % (1.7-12.7); Neutrophils % 45.7 % (38.7-73.9); Platelet Count 219 T/CUMM (130-400); Red Blood Count 3.49 MC/CUMM (3.8-5.5); Red Cell Distribution Width 18.2 % (9.3-17.3)
[2021-03-26 08:06] LABS: Albumin 4.1 G/DL (3.4-5.0); Bilirubin,Total 0.5 MG/DL (0.20-1.00); Calcium 9.3 MG/DL (8.5-10.1); Osmolality,Calculated 302.5 MOS/KG (273-304); Potassium 4.6 MMOL/L (3.5-5.1); Total Protein 7.2 G/DL (6.4-8.2)
[2021-03-26] MEDS: SODIUM BICARBONATE 650 MG TABLET PO SCH ×3 (09:07→20:42)
[2021-03-26] MEDS: FUROSEMIDE 80 MG TABLET PO SCH ×2 (09:08→16:35)
[2021-03-26] MEDS: calcitrioL 0.25 MCG CAPSULE PO SCH (09:08)
[2021-03-26] MEDS: FERROUS SULFATE 325 MG TABLET PO SCH ×2 (09:08→20:41)
[2021-03-26] MEDS: ZINC OXIDE 16% PASTE 57 GM TUBE TOP SCH ×2 (09:08→20:41)
[2021-03-26] MEDS: METOPROLOL TARTRATE 50 MG TABLET PO SCH ×2 (09:08→20:41)
[2021-03-26] MEDS: MONTELUKAST 10 MG TABLET PO SCH (09:08)
[2021-03-26] MEDS: amLODIPine 10 MG TABLET PO SCH (09:08)
[2021-03-26] MEDS: PANTOPRAZOLE 40 MG TABLET PO SCH (09:08)
[2021-03-26] MEDS: GABAPENTIN 300 MG CAPSULE PO SCH ×2 (09:08→20:42)
[2021-03-26] MEDS: ENOXAPARIN 30 MG/0.3 ML SYRINGE SUBCUT SCH (20:41)
[2021-03-27] MEDS: ALBUTEROL/IPRATROPIUM 3 ML NEB RESP TX SCH ×3 (03:20→11:16)
[2021-03-27] MEDS: SODIUM BICARBONATE 650 MG TABLET PO SCH ×2 (08:32→15:19)
[2021-03-27] MEDS: GABAPENTIN 300 MG CAPSULE PO SCH (08:32)
[2021-03-27] MEDS: calcitrioL 0.25 MCG CAPSULE PO SCH (08:32)
[2021-03-27] MEDS: METOPROLOL TARTRATE 50 MG TABLET PO SCH (08:32)
[2021-03-27] MEDS: PANTOPRAZOLE 40 MG TABLET PO SCH (08:32)
[2021-03-27] MEDS: FUROSEMIDE 80 MG TABLET PO SCH ×2 (08:32→15:19)
[2021-03-27] MEDS: FERROUS SULFATE 325 MG TABLET PO SCH (08:32)
[2021-03-27] MEDS: MONTELUKAST 10 MG TABLET PO SCH (08:32)
[2021-03-27] MEDS: amLODIPine 10 MG TABLET PO SCH (08:32)
[2021-03-27] MEDS: ZINC OXIDE 16% PASTE 57 GM TUBE TOP SCH (08:34)
[2021-03-27] MEDS ORDERED: INFLUENZA VIRUS VACCINE 0.5 ML SYRINGE IM ONE (15:38)
[2021-03-27 16:02] VITALS: BP 141/82
== END 2021-03-27 16:28 | disposition home or self-care (01) | DRG 194 ==
LOC: N.ED 17:07 → SUATTDRO 19:55 → N.EDINP 19:55 → N.5E 21:36
PROVIDERS: ADMIT Phlebology; ATTEND Internal Medicine
PROC: IRTHORA (2021-03-12 15:35)

== ENCOUNTER 2021-04-03 13:09 | Inpatient (IN) ==
[2021-04-03 14:03] LABS: Basophils % 0.1 % (0.0-0.8); Eosinophils % 0.1 % (0.00-10.9); Hematocrit 26.8 VOL% (35.7-47.0); Hemoglobin 8.3 GM/DL (12.0-16.0); Immature Granulocytes % 0.4 %; Immature Granulocytes Absolute 0.03 #; Lymphocytes # 0.8 10*3/uL (1.4-4.0); Lymphocytes % 10.4 % (21.3-54.2); Mean Corpuscular Volume 75.3 FL (87-102); Monocytes % 6.3 % (1.7-12.7); NRBC # 0.12 10*3/uL; Neutrophils % 82.7 % (38.7-73.9); Platelet Count 277 T/CUMM (130-400); Red Blood Count 3.56 MC/CUMM (3.8-5.5); Red Cell Distribution Width 23.2 % (9.3-17.3); White Blood Count 7.7 T/CUMM (4-12)
[2021-04-03] MEDS ORDERED: LACTATED RINGERS 1,000 ML IV ONE (14:14)
[2021-04-03 14:21] LABS: Bacteria,Urine Occasional /HPF (Few); Bilirubin,Urine Negative (Negative); Blood, Urine Small mg/dL (Negative); Glucose,Urine (UA) Negative (Negative); Ketones,Urine 5 mg/dL (Negative); Nitrite,Urine Negative (Negative); Protein,Urine >=500 MG/DL; RBC,Urine 3 /HPF (0-4); Squamous Epithelial Cell,Urine Occasional /HPF (0-10); Urine Appearance CLEAR (Clear); Urine Color Yellow (Yellow); Urine Specific Gravity 1.016 (1.001-1.035); Urine Urobilinogen < 2.0 EU/DL (0.2-1.0)
[2021-04-03 14:25] LABS: Barbiturates Screen,Urine Negative (Negative); Benzodiazepines Screen,Urine Negative (Negative); Cannabinoid Screen,Urine Negative (Negative); Opiate Screen,Urine Negative (Negative); Phencyclidine Screen,Urine Negative (Negative)
[2021-04-03 14:28] LABS: ABG Base Excess -4.1 MMOL/L (-2.5-2.5); ABG Oxygen Saturation 94.7 % (95-100); ABG PCO2 41.2 MM HG (35-48); ABG PH 7.328 (7.35-7.45); ABG PO2 79.7 MM HG (80-95); ABG TCO2 20.4 MMOL/L (23-27)
[2021-04-03 14:30] LABS: Albumin 4.4 G/DL (3.4-5.0); Bilirubin,Total 1.4 MG/DL (0.20-1.00); Calcium 9.3 MG/DL (8.5-10.1); Potassium 3.8 MMOL/L (3.5-5.1)
[2021-04-03] MEDS: LACTATED RINGERS 1,000 ML IV SCH ×3 (14:57→22:15)
[2021-04-03 15:20] LABS: Anisocytosis 2+; Hypochromasia 2+; Target Cells 1+
[2021-04-03 15:21] LABS: Acanthocytes 1+; Polychromasia Few
[2021-04-03] MEDS ORDERED: PIPERACILLIN/TAZOBACTAM 3,375 MG in SODIUM CHLORIDE 0.9% 100 ML IV STA (15:52)
[2021-04-03 16:00] LABS: INR 1.6; PT Patient Result 17.2 SECS (10.5-12.0); Partial Thromboplastin Time 33.9 SECS (23.9-33.8)
[2021-04-03] MEDS ORDERED: hydrALAZINE 20 MG/1 ML VIAL IV PRN (16:43)
[2021-04-03] MEDS ORDERED: DEXTROSE 50% 25 GM/50 ML VIAL IV PRN (16:43)
[2021-04-03] MEDS ORDERED: GLUCAGON 1 MG VIAL IM PRN (16:43)
[2021-04-03] MEDS: PANTOPRAZOLE 40 MG TABLET PO SCH (20:06)
[2021-04-03] MEDS: ENOXAPARIN 30 MG/0.3 ML SYRINGE SUBCUT SCH (20:06)
[2021-04-03] MEDS: FERROUS SULFATE 325 MG TABLET PO SCH (21:06)
[2021-04-03] MEDS: ACETAMINOPHEN 325 MG TABLET PO PRN (21:11)
[2021-04-04] MEDS: PIPERACILLIN/TAZOBACTAM 3,375 MG in SODIUM CHLORIDE 0.9% 100 ML IV SCH ×3 (00:53→20:48)
[2021-04-04 07:24] LABS: Basophils % 0.4 % (0.0-0.8); Eosinophils # 0.1 10*3/uL (0.0-0.87); Eosinophils % 1.3 % (0.00-10.9); Hemoglobin 7.6 GM/DL (12.0-16.0); Immature Granulocytes % 0.5 %; Immature Granulocytes Absolute 0.04 #; Lymphocytes # 2.3 10*3/uL (1.4-4.0); Lymphocytes % 28.1 % (21.3-54.2); Mean Platelet Volume 10.6 FL (9.6-12.0); Monocytes % 10.3 % (1.7-12.7); NRBC # 0.08 10*3/uL; Neutrophils % 59.4 % (38.7-73.9); Platelet Count 288 T/CUMM (130-400); Red Blood Count 3.11 MC/CUMM (3.8-5.5); White Blood Count 8.3 T/CUMM (4-12)
[2021-04-04 07:43] LABS: Anisocytosis 3+; Platelet Estimate Normal; Tear Drop Cells 1+
[2021-04-04 07:44] LABS: Burr Cells Few; Ovalocytes Few; Poikilocytosis 1+; Schistocytes Few; Target Cells 1+
[2021-04-04 07:51] LABS: Albumin 3.7 G/DL (3.4-5.0); Calcium 8.7 MG/DL (8.5-10.1); Osmolality,Calculated 312.3 MOS/KG (273-304); Potassium 3.4 MMOL/L (3.5-5.1); Risk Ratio 2.28; Thyroid Stimulating Hormone 2.11 uIU/ml (0.358-3.74); Total Protein 6.9 G/DL (6.4-8.2); VLDL Cholesterol 13.2 MG/DL
[2021-04-04] MEDS ORDERED: MAGNESIUM SULF RIDER 4 GM/100 ML PREMIX IV PRN (08:16)
[2021-04-04] MEDS ORDERED: MAGNESIUM SULF RIDER 2 GM/50 ML PREMIX IV PRN (08:16)
[2021-04-04] MEDS: amLODIPine 10 MG TABLET PO SCH (09:52)
[2021-04-04] MEDS: PANTOPRAZOLE 40 MG TABLET PO SCH (09:52)
[2021-04-04] MEDS: FERROUS SULFATE 325 MG TABLET PO SCH ×2 (09:52→20:48)
[2021-04-04] MEDS: POTASSIUM CHLORIDE 20 MEQ TABLET PO PRN (09:53)
[2021-04-04] MEDS: ALBUTEROL/IPRATROPIUM 3 ML NEB RESP TX SCH ×3 (09:59→19:21)
[2021-04-04] MEDS: LACTATED RINGERS 1,000 ML IV SCH (13:30)
[2021-04-04] MEDS: DESITIN 4OZ/NYSTATIN 15 GRAM MIXTURE PASTE TOP SCH ×2 (15:41→20:48)
[2021-04-04] MEDS ORDERED: SKIN HEALING OINT (AQUAPHOR) 50 GM TUBE TOP PRN (18:13)
[2021-04-04] MEDS: ENOXAPARIN 30 MG/0.3 ML SYRINGE SUBCUT SCH (20:48)
[2021-04-05] MEDS: ALBUTEROL/IPRATROPIUM 3 ML NEB RESP TX SCH ×4 (00:16→20:50)
[2021-04-05 05:09] LABS: Basophils % 0.4 % (0.0-0.8); Eosinophils # 0.2 10*3/uL (0.0-0.87); Eosinophils % 1.8 % (0.00-10.9); Hematocrit 23.3 VOL% (35.7-47.0); Hemoglobin 7.3 GM/DL (12.0-16.0); Immature Granulocytes % 0.3 %; Immature Granulocytes Absolute 0.03 #; Lymphocytes # 3.6 10*3/uL (1.4-4.0); Lymphocytes % 39.2 % (21.3-54.2); Mean Corpuscular HGB Conc 31.3 GM/DL (32-36); Mean Corpuscular Volume 75.2 FL (87-102); Mean Platelet Volume 9.6 FL (9.6-12.0); Monocytes % 11.1 % (1.7-12.7); NRBC # 0.05 10*3/uL; Neutrophils % 47.2 % (38.7-73.9); Platelet Count 240 T/CUMM (130-400); Red Cell Distribution Width 22.2 % (9.3-17.3); White Blood Count 9.1 T/CUMM (4-12)
[2021-04-05 05:36] LABS: Hypochromasia Slight; Microcytosis Slight
[2021-04-05 05:46] LABS: Calcium 8.3 MG/DL (8.5-10.1); Osmolality,Calculated 301.1 MOS/KG (273-304); Potassium 3.3 MMOL/L (3.5-5.1)
[2021-04-05] MEDS: PIPERACILLIN/TAZOBACTAM 3,375 MG in SODIUM CHLORIDE 0.9% 100 ML IV SCH ×2 (06:09→17:25)
[2021-04-05] MEDS: amLODIPine 10 MG TABLET PO SCH (10:07)
[2021-04-05] MEDS: POTASSIUM CHLORIDE 20 MEQ TABLET PO PRN ×3 (10:07→19:20)
[2021-04-05] MEDS: FERROUS SULFATE 325 MG TABLET PO SCH ×2 (10:07→21:11)
[2021-04-05] MEDS: PANTOPRAZOLE 40 MG TABLET PO SCH (10:07)
[2021-04-05] MEDS: DESITIN 4OZ/NYSTATIN 15 GRAM MIXTURE PASTE TOP SCH ×2 (10:07→21:11)
[2021-04-05] MEDS ORDERED: LACTULOSE 20 GM/30 ML UDCUP PO PRN (13:24)
[2021-04-05] MEDS: RIFAXIMIN 550 MG TABLET PO SCH (21:11)
[2021-04-05] MEDS: ENOXAPARIN 30 MG/0.3 ML SYRINGE SUBCUT SCH (21:11)
[2021-04-06] MEDS: PIPERACILLIN/TAZOBACTAM 3,375 MG in SODIUM CHLORIDE 0.9% 100 ML IV SCH ×3 (00:09→18:13)
[2021-04-06] MEDS: ALBUTEROL/IPRATROPIUM 3 ML NEB RESP TX SCH ×4 (01:49→20:30)
[2021-04-06 05:31] LABS: Basophils # 0.1 10*3/uL (0.0-0.2); Basophils % 0.5 % (0.0-0.8); Eosinophils # 0.2 10*3/uL (0.0-0.87); Eosinophils % 1.9 % (0.00-10.9); Hematocrit 24.8 VOL% (35.7-47.0); Hemoglobin 7.8 GM/DL (12.0-16.0); Immature Granulocytes % 0.3 %; Immature Granulocytes Absolute 0.03 #; Lymphocytes # 3.2 10*3/uL (1.4-4.0); Lymphocytes % 33.3 % (21.3-54.2); Mean Corpuscular HGB Conc 31.5 GM/DL (32-36); Mean Corpuscular Volume 74.5 FL (87-102); Mean Platelet Volume 9.7 FL (9.6-12.0); NRBC # 0.03 10*3/uL; Platelet Count 224 T/CUMM (130-400); Red Blood Count 3.33 MC/CUMM (3.8-5.5); Red Cell Distribution Width 23.1 % (9.3-17.3); White Blood Count 9.6 T/CUMM (4-12)
[2021-04-06 05:44] LABS: Calcium 8.6 MG/DL (8.5-10.1); Osmolality,Calculated 298.3 MOS/KG (273-304); Potassium 3.9 MMOL/L (3.5-5.1)
[2021-04-06] MEDS: RIFAXIMIN 550 MG TABLET PO SCH ×2 (10:08→20:30)
[2021-04-06] MEDS: PANTOPRAZOLE 40 MG TABLET PO SCH (10:08)
[2021-04-06] MEDS: amLODIPine 10 MG TABLET PO SCH (10:08)
[2021-04-06] MEDS: FERROUS SULFATE 325 MG TABLET PO SCH ×2 (10:09→20:30)
[2021-04-06] MEDS: LACTULOSE 20 GM/30 ML UDCUP PO SCH ×3 (10:09→20:30)
[2021-04-06] MEDS: DESITIN 4OZ/NYSTATIN 15 GRAM MIXTURE PASTE TOP SCH ×2 (10:17→20:30)
[2021-04-06] MEDS ORDERED: SULFAMETH/TRIMETH INJ 160 MG in DEXTROSE 5% 250 ML IV SCH (18:00)
[2021-04-06] MEDS: ENOXAPARIN 30 MG/0.3 ML SYRINGE SUBCUT SCH (20:30)
[2021-04-06] MEDS: SULFAMETH/TRIMETH INJ 160 MG in DEXTROSE 5% 250 ML IV SCH (23:22)
[2021-04-07] MEDS: ALBUTEROL/IPRATROPIUM 3 ML NEB RESP TX SCH ×5 (01:18→19:13)
[2021-04-07] MEDS: PIPERACILLIN/TAZOBACTAM 3,375 MG in SODIUM CHLORIDE 0.9% 100 ML IV SCH ×3 (02:23→18:15)
[2021-04-07 06:57] LABS: Basophils % 0.3 % (0.0-0.8); Eosinophils # 0.2 10*3/uL (0.0-0.87); Eosinophils % 2.6 % (0.00-10.9); Hematocrit 25.6 VOL% (35.7-47.0); Immature Granulocytes % 0.3 %; Immature Granulocytes Absolute 0.03 #; Lymphocytes # 2.1 10*3/uL (1.4-4.0); Lymphocytes % 24.8 % (21.3-54.2); Mean Corpuscular HGB Conc 31.3 GM/DL (32-36); Mean Corpuscular Volume 75.3 FL (87-102); Mean Platelet Volume 9.6 FL (9.6-12.0); Monocytes % 9.7 % (1.7-12.7); Neutrophils % 62.3 % (38.7-73.9); Platelet Count 255 T/CUMM (130-400); Red Cell Distribution Width 23.5 % (9.3-17.3); White Blood Count 8.6 T/CUMM (4-12)
[2021-04-07 07:13] LABS: Calcium 8.3 MG/DL (8.5-10.1); Potassium 3.8 MMOL/L (3.5-5.1)
[2021-04-07 07:22] LABS: Hypochromasia 2+
[2021-04-07 07:23] LABS: Acanthocytes Few; Microcytosis 1+; Ovalocytes Few; Target Cells Few
[2021-04-07 07:24] LABS: Platelet Estimate Normal
[2021-04-07] MEDS: DESITIN 4OZ/NYSTATIN 15 GRAM MIXTURE PASTE TOP SCH ×2 (08:00→23:00)
[2021-04-07] MEDS: SULFAMETH/TRIMETH INJ 160 MG in DEXTROSE 5% 250 ML IV SCH ×2 (09:41→16:50)
[2021-04-07] MEDS: PANTOPRAZOLE 40 MG TABLET PO SCH (11:19)
[2021-04-07] MEDS: LACTULOSE 20 GM/30 ML UDCUP PO SCH ×2 (11:19→16:50)
[2021-04-07] MEDS: FERROUS SULFATE 325 MG TABLET PO SCH (11:19)
[2021-04-07] MEDS: amLODIPine 10 MG TABLET PO SCH (11:19)
[2021-04-07] MEDS: RIFAXIMIN 550 MG TABLET PO SCH (11:20)
[2021-04-07] MEDS ORDERED: FUROSEMIDE 40 MG/4 ML VIAL IV ONE (17:58)
[2021-04-07] MEDS ORDERED: CETIRIZINE 10 MG TABLET PO ONE (18:30)
[2021-04-08] MEDS: ONDANSETRON 4 MG/2 ML VIAL IV PRN ×2 (01:10→23:58)
[2021-04-08] MEDS: ACETAMINOPHEN 325 MG TABLET PO PRN ×2 (01:11→23:58)
[2021-04-08] MEDS: ALBUTEROL/IPRATROPIUM 3 ML NEB RESP TX SCH ×4 (01:35→19:50)
[2021-04-08] MEDS: ENOXAPARIN 30 MG/0.3 ML SYRINGE SUBCUT SCH ×2 (05:12→22:39)
[2021-04-08] MEDS: LACTULOSE 20 GM/30 ML UDCUP PO SCH ×4 (05:12→22:39)
[2021-04-08] MEDS: FERROUS SULFATE 325 MG TABLET PO SCH ×3 (05:12→22:38)
[2021-04-08] MEDS: FLUTICASONE 50 MCG NASAL SPRAY 16 GM BOTTLE BOTH NARES SCH ×3 (05:12→22:41)
[2021-04-08] MEDS: SULFAMETH/TRIMETH INJ 160 MG in DEXTROSE 5% 250 ML IV SCH ×4 (05:13→22:39)
[2021-04-08] MEDS: RIFAXIMIN 550 MG TABLET PO SCH ×3 (05:15→22:38)
[2021-04-08 05:28] LABS: Basophils % 0.3 % (0.0-0.8); Eosinophils # 0.3 10*3/uL (0.0-0.87); Eosinophils % 3.6 % (0.00-10.9); Hematocrit 24.9 VOL% (35.7-47.0); Hemoglobin 7.8 GM/DL (12.0-16.0); Immature Granulocytes % 0.3 %; Immature Granulocytes Absolute 0.03 #; Lymphocytes # 2.3 10*3/uL (1.4-4.0); Mean Corpuscular HGB Conc 31.3 GM/DL (32-36); Mean Corpuscular Volume 76.1 FL (87-102); Mean Platelet Volume 10.1 FL (9.6-12.0); Monocytes % 11.2 % (1.7-12.7); Neutrophils % 58.6 % (38.7-73.9); Platelet Count 249 T/CUMM (130-400); Red Blood Count 3.27 MC/CUMM (3.8-5.5); Red Cell Distribution Width 23.5 % (9.3-17.3); White Blood Count 8.8 T/CUMM (4-12)
[2021-04-08] MEDS: PIPERACILLIN/TAZOBACTAM 3,375 MG in SODIUM CHLORIDE 0.9% 100 ML IV SCH ×3 (05:47→17:55)
[2021-04-08 05:54] LABS: Calcium 8.6 MG/DL (8.5-10.1); Osmolality,Calculated 302.8 MOS/KG (273-304); Potassium 4.2 MMOL/L (3.5-5.1)
[2021-04-08] MEDS ORDERED: FLUTICASONE 50 MCG NASAL SPRAY 16 GM BOTTLE BOTH NARES SCH (09:00)
[2021-04-08] MEDS: PANTOPRAZOLE 40 MG TABLET PO SCH (09:30)
[2021-04-08] MEDS: CLOPIDOGREL 75 MG TABLET PO SCH (09:30)
[2021-04-08] MEDS: FUROSEMIDE 40 MG/4 ML VIAL IV SCH (09:30)
[2021-04-08] MEDS: amLODIPine 10 MG TABLET PO SCH (09:30)
[2021-04-08] MEDS: DESITIN 4OZ/NYSTATIN 15 GRAM MIXTURE PASTE TOP SCH ×2 (09:31→22:40)
[2021-04-08] MEDS: CETIRIZINE 10 MG TABLET PO SCH (22:41)
[2021-04-09] MEDS: ALBUTEROL/IPRATROPIUM 3 ML NEB RESP TX SCH ×4 (01:55→19:49)
[2021-04-09] MEDS: PIPERACILLIN/TAZOBACTAM 3,375 MG in SODIUM CHLORIDE 0.9% 100 ML IV SCH ×2 (04:18→11:07)
[2021-04-09 05:39] LABS: Basophils % 0.5 % (0.0-0.8); Eosinophils # 0.3 10*3/uL (0.0-0.87); Hematocrit 23.5 VOL% (35.7-47.0); Hemoglobin 7.3 GM/DL (12.0-16.0); Immature Granulocytes % 0.3 %; Immature Granulocytes Absolute 0.02 #; Lymphocytes # 2.3 10*3/uL (1.4-4.0); Lymphocytes % 28.9 % (21.3-54.2); Mean Corpuscular HGB Conc 31.1 GM/DL (32-36); Mean Corpuscular Volume 76.1 FL (87-102); Mean Platelet Volume 10.8 FL (9.6-12.0); Monocytes % 13.6 % (1.7-12.7); Neutrophils % 52.7 % (38.7-73.9); Platelet Count 227 T/CUMM (130-400); Red Blood Count 3.09 MC/CUMM (3.8-5.5); Red Cell Distribution Width 23.7 % (9.3-17.3); White Blood Count 7.8 T/CUMM (4-12)
[2021-04-09 05:59] LABS: Calcium 8.1 MG/DL (8.5-10.1); Osmolality,Calculated 299.1 MOS/KG (273-304); Potassium 4.2 MMOL/L (3.5-5.1)
[2021-04-09] MEDS: FERROUS SULFATE 325 MG TABLET PO SCH ×2 (09:49→20:53)
[2021-04-09] MEDS: CLOPIDOGREL 75 MG TABLET PO SCH (09:49)
[2021-04-09] MEDS: RIFAXIMIN 550 MG TABLET PO SCH ×2 (09:49→20:53)
[2021-04-09] MEDS: PANTOPRAZOLE 40 MG TABLET PO SCH (09:49)
[2021-04-09] MEDS: amLODIPine 10 MG TABLET PO SCH (09:49)
[2021-04-09] MEDS: DESITIN 4OZ/NYSTATIN 15 GRAM MIXTURE PASTE TOP SCH ×2 (09:50→20:54)
[2021-04-09] MEDS: FUROSEMIDE 40 MG/4 ML VIAL IV SCH (09:50)
[2021-04-09] MEDS: SULFAMETH/TRIMETH INJ 160 MG in DEXTROSE 5% 250 ML IV SCH (09:51)
[2021-04-09] MEDS: LACTULOSE 20 GM/30 ML UDCUP PO SCH ×3 (09:55→20:53)
[2021-04-09] MEDS ORDERED: FUROSEMIDE 20 MG/2 ML VIAL IV ONE (10:03)
[2021-04-09] MEDS: FLUTICASONE 50 MCG NASAL SPRAY 16 GM BOTTLE BOTH NARES SCH ×2 (11:39→20:54)
[2021-04-09] MEDS ORDERED: LEVOFLOXACIN INJ 750 MG/150 ML PREMIX IV ONE (12:00)
[2021-04-09] MEDS: ACETAMINOPHEN 325 MG TABLET PO PRN ×2 (19:22→23:25)
[2021-04-09] MEDS: CETIRIZINE 10 MG TABLET PO SCH (20:53)
[2021-04-10] MEDS: ALBUTEROL/IPRATROPIUM 3 ML NEB RESP TX SCH ×4 (01:06→20:19)
[2021-04-10] MEDS ORDERED: ALBUTEROL/IPRATROPIUM 3 ML NEB RESP TX ONE (06:00)
[2021-04-10 07:26] LABS: Basophils # 0.1 10*3/uL (0.0-0.2); Basophils % 0.7 % (0.0-0.8); Eosinophils # 0.3 10*3/uL (0.0-0.87); Eosinophils % 4.4 % (0.00-10.9); Hematocrit 22.9 VOL% (35.7-47.0); Hemoglobin 7.3 GM/DL (12.0-16.0); Immature Granulocytes % 0.4 %; Immature Granulocytes Absolute 0.03 #; Lymphocytes # 2.4 10*3/uL (1.4-4.0); Lymphocytes % 33.5 % (21.3-54.2); Mean Corpuscular HGB Conc 31.9 GM/DL (32-36); Mean Corpuscular Volume 74.4 FL (87-102); Mean Platelet Volume 10.6 FL (9.6-12.0); Monocytes % 13.9 % (1.7-12.7); Neutrophils % 47.1 % (38.7-73.9); Platelet Count 167 T/CUMM (130-400); Red Blood Count 3.08 MC/CUMM (3.8-5.5); Red Cell Distribution Width 23.5 % (9.3-17.3); White Blood Count 7.3 T/CUMM (4-12)
[2021-04-10 07:48] LABS: Calcium 8.5 MG/DL (8.5-10.1); Potassium 4.2 MMOL/L (3.5-5.1)
[2021-04-10 08:01] LABS: Anisocytosis Slight; Hypochromasia 2+; Platelet Estimate Adequate
[2021-04-10] MEDS: DESITIN 4OZ/NYSTATIN 15 GRAM MIXTURE PASTE TOP SCH ×2 (08:50→21:11)
[2021-04-10] MEDS ORDERED: propofoL 200 MG/20 ML VIAL IV ONE (10:53)
[2021-04-10] MEDS ORDERED: ETOMIDATE 40 MG/20 ML VIAL IV ONE (10:53)
[2021-04-10] MEDS ORDERED: DEXMEDETOMIDINE 200 MCG/2 ML VIAL ONE (10:53)
[2021-04-10] MEDS ORDERED: LIDOCAINE 2% 5 ML VIAL ONE (10:53)
[2021-04-10] MEDS ORDERED: MIDAZOLAM 2 MG/2 ML VIAL ONE ×2 (10:53→11:13)
[2021-04-10] MEDS ORDERED: SODIUM CHLORIDE 0.9% 250 ML IV SCH (11:00)
[2021-04-10] MEDS ORDERED: TUBERCULIN SKIN TEST 0.1 ML SYRINGE INTRADERM ONE (11:23)
[2021-04-10] MEDS ORDERED: ONDANSETRON 4 MG/2 ML VIAL ONE (11:25)
[2021-04-10] MEDS ORDERED: DEXAMETHASONE 4 MG/1 ML VIAL ONE (11:25)
[2021-04-10 11:44] LABS: Hepatitis B Surface Ag Quant < 0.10 Index; Hepatitis B Surface Ag Result Non-Reactive (NonReactive); Hepatitis C Virus Ab Quant > 11.00 Index; Hepatitis C Virus Ab Result Reactive (NonReactive)
[2021-04-10] MEDS ORDERED: HEPARIN 10,000 UNIT/10 ML VIAL IV SCH (13:15)
[2021-04-10] MEDS: LACTULOSE 20 GM/30 ML UDCUP PO SCH ×3 (13:57→21:12)
[2021-04-10] MEDS: FERROUS SULFATE 325 MG TABLET PO SCH ×2 (13:57→21:12)
[2021-04-10] MEDS: RIFAXIMIN 550 MG TABLET PO SCH ×2 (13:58→21:12)
[2021-04-10] MEDS: FLUTICASONE 50 MCG NASAL SPRAY 16 GM BOTTLE BOTH NARES SCH ×2 (13:58→21:11)
[2021-04-10] MEDS: CLOPIDOGREL 75 MG TABLET PO SCH (16:31)
[2021-04-10] MEDS: PANTOPRAZOLE 40 MG TABLET PO SCH (16:31)
[2021-04-10] MEDS: amLODIPine 10 MG TABLET PO SCH (16:31)
[2021-04-10] MEDS: FUROSEMIDE 40 MG/4 ML VIAL IV SCH (16:32)
[2021-04-10] MEDS: ACETAMINOPHEN 325 MG TABLET PO PRN (18:19)
[2021-04-10] MEDS: calcitrioL 0.25 MCG CAPSULE PO SCH (18:19)
[2021-04-10] MEDS: CETIRIZINE 10 MG TABLET PO SCH (21:12)
[2021-04-11] MEDS: ALBUTEROL/IPRATROPIUM 3 ML NEB RESP TX SCH ×4 (00:30→19:25)
[2021-04-11] MEDS: ACETAMINOPHEN 325 MG TABLET PO PRN ×3 (04:44→21:27)
[2021-04-11 08:07] LABS: Basophils % 0.3 % (0.0-0.8); Eosinophils % 0.1 % (0.00-10.9); Hematocrit 22.8 VOL% (35.7-47.0); Hemoglobin 7.2 GM/DL (12.0-16.0); Immature Granulocytes % 0.2 %; Immature Granulocytes Absolute 0.02 #; Lymphocytes # 2.3 10*3/uL (1.4-4.0); Lymphocytes % 26.3 % (21.3-54.2); Mean Corpuscular HGB Conc 31.6 GM/DL (32-36); Mean Corpuscular Volume 74.5 FL (87-102); Monocytes % 11.5 % (1.7-12.7); Neutrophils % 61.6 % (38.7-73.9); Platelet Count 142 T/CUMM (130-400); Red Blood Count 3.06 MC/CUMM (3.8-5.5); Red Cell Distribution Width 23.3 % (9.3-17.3); White Blood Count 8.7 T/CUMM (4-12)
[2021-04-11 08:21] LABS: Calcium 8.7 MG/DL (8.5-10.1); Osmolality,Calculated 294.4 MOS/KG (273-304); Potassium 4.3 MMOL/L (3.5-5.1)
[2021-04-11] MEDS: FLUTICASONE 50 MCG NASAL SPRAY 16 GM BOTTLE BOTH NARES SCH ×2 (09:45→21:21)
[2021-04-11] MEDS: LACTULOSE 20 GM/30 ML UDCUP PO SCH ×3 (09:45→21:18)
[2021-04-11] MEDS: FERROUS SULFATE 325 MG TABLET PO SCH ×2 (09:45→21:18)
[2021-04-11] MEDS: RIFAXIMIN 550 MG TABLET PO SCH ×2 (09:46→21:18)
[2021-04-11] MEDS: LEVOFLOXACIN INJ 500 MG/100 ML PREMIX IV SCH (12:52)
[2021-04-11] MEDS: PANTOPRAZOLE 40 MG TABLET PO SCH (12:53)
[2021-04-11] MEDS: CLOPIDOGREL 75 MG TABLET PO SCH (12:53)
[2021-04-11] MEDS: calcitrioL 0.25 MCG CAPSULE PO SCH (12:53)
[2021-04-11] MEDS: amLODIPine 10 MG TABLET PO SCH (12:53)
[2021-04-11] MEDS: FUROSEMIDE 40 MG/4 ML VIAL IV SCH (12:54)
[2021-04-11] MEDS: DESITIN 4OZ/NYSTATIN 15 GRAM MIXTURE PASTE TOP SCH ×2 (12:54→21:20)
[2021-04-11] MEDS: CETIRIZINE 10 MG TABLET PO SCH (21:18)
[2021-04-12] MEDS: ALBUTEROL/IPRATROPIUM 3 ML NEB RESP TX SCH ×4 (01:14→20:15)
[2021-04-12 06:10] LABS: Basophils # 0.1 10*3/uL (0.0-0.2); Basophils % 0.6 % (0.0-0.8); Eosinophils # 0.2 10*3/uL (0.0-0.87); Eosinophils % 2.1 % (0.00-10.9); Hematocrit 25.3 VOL% (35.7-47.0); Hemoglobin 7.8 GM/DL (12.0-16.0); Immature Granulocytes % 0.2 %; Immature Granulocytes Absolute 0.02 #; Lymphocytes % 36.6 % (21.3-54.2); Mean Corpuscular HGB Conc 30.8 GM/DL (32-36); Mean Corpuscular Volume 74.9 FL (87-102); Monocytes % 10.7 % (1.7-12.7); Neutrophils % 49.8 % (38.7-73.9); Platelet Count 161 T/CUMM (130-400); Red Blood Count 3.38 MC/CUMM (3.8-5.5); Red Cell Distribution Width 24.2 % (9.3-17.3); White Blood Count 8.3 T/CUMM (4-12)
[2021-04-12 06:28] LABS: Potassium 3.9 MMOL/L (3.5-5.1)
[2021-04-12] MEDS: FUROSEMIDE 40 MG/4 ML VIAL IV SCH (09:44)
[2021-04-12] MEDS: LACTULOSE 20 GM/30 ML UDCUP PO SCH ×3 (09:45→20:47)
[2021-04-12] MEDS: RIFAXIMIN 550 MG TABLET PO SCH ×2 (09:46→20:47)
[2021-04-12] MEDS: PANTOPRAZOLE 40 MG TABLET PO SCH (09:46)
[2021-04-12] MEDS: FLUTICASONE 50 MCG NASAL SPRAY 16 GM BOTTLE BOTH NARES SCH ×2 (09:46→20:48)
[2021-04-12] MEDS: CLOPIDOGREL 75 MG TABLET PO SCH (09:46)
[2021-04-12] MEDS: FERROUS SULFATE 325 MG TABLET PO SCH ×2 (09:46→20:47)
[2021-04-12] MEDS: amLODIPine 10 MG TABLET PO SCH (09:46)
[2021-04-12] MEDS: calcitrioL 0.25 MCG CAPSULE PO SCH (09:47)
[2021-04-12] MEDS: DESITIN 4OZ/NYSTATIN 15 GRAM MIXTURE PASTE TOP SCH ×2 (09:47→20:48)
[2021-04-12] MEDS: ACETAMINOPHEN 325 MG TABLET PO PRN (19:06)
[2021-04-12] MEDS: CETIRIZINE 10 MG TABLET PO SCH (20:47)
[2021-04-13] MEDS: ALBUTEROL/IPRATROPIUM 3 ML NEB RESP TX SCH ×4 (01:17→20:44)
[2021-04-13 06:11] LABS: Basophils % 0.5 % (0.0-0.8); Eosinophils # 0.3 10*3/uL (0.0-0.87); Eosinophils % 3.9 % (0.00-10.9); Hematocrit 26.1 VOL% (35.7-47.0); Hemoglobin 8.3 GM/DL (12.0-16.0); Immature Granulocytes % 0.3 %; Immature Granulocytes Absolute 0.02 #; Lymphocytes # 2.4 10*3/uL (1.4-4.0); Lymphocytes % 31.4 % (21.3-54.2); Mean Corpuscular HGB Conc 31.8 GM/DL (32-36); Mean Corpuscular Volume 74.4 FL (87-102); Monocytes % 10.8 % (1.7-12.7); Neutrophils % 53.1 % (38.7-73.9); Red Blood Count 3.51 MC/CUMM (3.8-5.5); Red Cell Distribution Width 24.4 % (9.3-17.3); White Blood Count 7.5 T/CUMM (4-12)
[2021-04-13 06:33] LABS: Platelet Count 121 T/CUMM (130-400)
[2021-04-13 06:36] LABS: Calcium 8.7 MG/DL (8.5-10.1); Osmolality,Calculated 284.1 MOS/KG (273-304)
[2021-04-13] MEDS: FERROUS SULFATE 325 MG TABLET PO SCH ×2 (09:45→20:37)
[2021-04-13] MEDS: LACTULOSE 20 GM/30 ML UDCUP PO SCH ×3 (09:45→20:38)
[2021-04-13] MEDS: FUROSEMIDE 40 MG/4 ML VIAL IV SCH (09:45)
[2021-04-13] MEDS: PANTOPRAZOLE 40 MG TABLET PO SCH (09:45)
[2021-04-13] MEDS: calcitrioL 0.25 MCG CAPSULE PO SCH (09:46)
[2021-04-13] MEDS: FLUTICASONE 50 MCG NASAL SPRAY 16 GM BOTTLE BOTH NARES SCH ×2 (09:46→20:38)
[2021-04-13] MEDS: DESITIN 4OZ/NYSTATIN 15 GRAM MIXTURE PASTE TOP SCH ×2 (09:46→20:38)
[2021-04-13] MEDS: amLODIPine 10 MG TABLET PO SCH (09:46)
[2021-04-13] MEDS: CLOPIDOGREL 75 MG TABLET PO SCH (09:46)
[2021-04-13] MEDS: LEVOFLOXACIN INJ 500 MG/100 ML PREMIX IV SCH (09:47)
[2021-04-13] MEDS: ACETAMINOPHEN 325 MG TABLET PO PRN (19:07)
[2021-04-13] MEDS: CETIRIZINE 10 MG TABLET PO SCH (20:37)
[2021-04-14] MEDS: ALBUTEROL/IPRATROPIUM 3 ML NEB RESP TX SCH ×4 (00:37→19:43)
[2021-04-14] MEDS: ALBUTEROL/IPRATROPIUM 3 ML NEB RESP TX PRN (05:41)
[2021-04-14] MEDS ORDERED: FUROSEMIDE 40 MG/4 ML VIAL IV ONE (06:02)
[2021-04-14 06:25] LABS: Basophils # 0.1 10*3/uL (0.0-0.2); Basophils % 0.4 % (0.0-0.8); Eosinophils # 0.4 10*3/uL (0.0-0.87); Eosinophils % 3.3 % (0.00-10.9); Hematocrit 27.3 VOL% (35.7-47.0); Hemoglobin 8.7 GM/DL (12.0-16.0); Immature Granulocytes % 0.3 %; Immature Granulocytes Absolute 0.03 #; Lymphocytes # 2.9 10*3/uL (1.4-4.0); Mean Corpuscular HGB Conc 31.9 GM/DL (32-36); Mean Corpuscular Volume 74.2 FL (87-102); Platelet Count 141 T/CUMM (130-400); Red Blood Count 3.68 MC/CUMM (3.8-5.5); Red Cell Distribution Width 24.5 % (9.3-17.3)
[2021-04-14 06:29] LABS: White Blood Count 11.1 T/CUMM (4-12)
[2021-04-14 06:40] LABS: Calcium 9.1 MG/DL (8.5-10.1); Osmolality,Calculated 286.1 MOS/KG (273-304); Potassium 4.1 MMOL/L (3.5-5.1)
[2021-04-14] MEDS: calcitrioL 0.25 MCG CAPSULE PO SCH (14:20)
[2021-04-14] MEDS: amLODIPine 10 MG TABLET PO SCH (14:20)
[2021-04-14] MEDS: FUROSEMIDE 40 MG/4 ML VIAL IV SCH (14:20)
[2021-04-14] MEDS: FERROUS SULFATE 325 MG TABLET PO SCH ×2 (14:20→21:35)
[2021-04-14] MEDS: PANTOPRAZOLE 40 MG TABLET PO SCH (14:21)
[2021-04-14] MEDS: FLUTICASONE 50 MCG NASAL SPRAY 16 GM BOTTLE BOTH NARES SCH ×2 (14:21→21:34)
[2021-04-14] MEDS: CLOPIDOGREL 75 MG TABLET PO SCH (14:21)
[2021-04-14] MEDS: cefTRIAXone 1,000 MG in SODIUM CHLORIDE 0.9% 100 ML IV SCH (14:23)
[2021-04-14] MEDS: DESITIN 4OZ/NYSTATIN 15 GRAM MIXTURE PASTE TOP SCH ×2 (14:24→21:34)
[2021-04-14] MEDS: LACTULOSE 20 GM/30 ML UDCUP PO SCH ×4 (14:24→22:10)
[2021-04-14] MEDS: AZITHROMYCIN INJ 500 MG in SODIUM CHLORIDE 0.9% 250 ML IV SCH (16:01)
[2021-04-14] MEDS: ACETAMINOPHEN 325 MG TABLET PO PRN (16:57)
[2021-04-14] MEDS: CETIRIZINE 10 MG TABLET PO SCH (21:34)
[2021-04-15] MEDS: ALBUTEROL/IPRATROPIUM 3 ML NEB RESP TX SCH ×4 (00:15→19:35)
[2021-04-15 05:47] LABS: Osmolality,Calculated 275.7 MOS/KG (273-304); Potassium 3.9 MMOL/L (3.5-5.1)
[2021-04-15 05:56] LABS: Basophils # 0.1 10*3/uL (0.0-0.2); Basophils % 0.5 % (0.0-0.8); Eosinophils # 0.3 10*3/uL (0.0-0.87); Eosinophils % 3.2 % (0.00-10.9); Hematocrit 24.6 VOL% (35.7-47.0); Hemoglobin 8.1 GM/DL (12.0-16.0); Immature Granulocytes % 0.3 %; Immature Granulocytes Absolute 0.03 #; Lymphocytes # 2.7 10*3/uL (1.4-4.0); Lymphocytes % 25.2 % (21.3-54.2); Mean Corpuscular HGB Conc 32.9 GM/DL (32-36); Monocytes % 7.8 % (1.7-12.7); Platelet Count 117 T/CUMM (130-400); Red Blood Count 3.37 MC/CUMM (3.8-5.5); Red Cell Distribution Width 24.2 % (9.3-17.3); White Blood Count 10.8 T/CUMM (4-12)
[2021-04-15] MEDS ORDERED: MAGNESIUM OXIDE 400 MG TABLET PO ONE (08:05)
[2021-04-15] MEDS: FLUTICASONE 50 MCG NASAL SPRAY 16 GM BOTTLE BOTH NARES SCH ×2 (10:44→21:15)
[2021-04-15] MEDS: calcitrioL 0.25 MCG CAPSULE PO SCH (10:44)
[2021-04-15] MEDS: PANTOPRAZOLE 40 MG TABLET PO SCH (10:44)
[2021-04-15] MEDS: amLODIPine 10 MG TABLET PO SCH (10:44)
[2021-04-15] MEDS: FERROUS SULFATE 325 MG TABLET PO SCH ×2 (10:44→20:25)
[2021-04-15] MEDS: LACTULOSE 20 GM/30 ML UDCUP PO SCH ×4 (10:45→21:15)
[2021-04-15] MEDS: DESITIN 4OZ/NYSTATIN 15 GRAM MIXTURE PASTE TOP SCH ×2 (10:45→20:27)
[2021-04-15] MEDS: CLOPIDOGREL 75 MG TABLET PO SCH (10:45)
[2021-04-15] MEDS: FUROSEMIDE 40 MG/4 ML VIAL IV SCH (11:45)
[2021-04-15] MEDS: cefTRIAXone 1,000 MG in SODIUM CHLORIDE 0.9% 100 ML IV SCH (13:06)
[2021-04-15] MEDS: ACETAMINOPHEN 325 MG TABLET PO PRN ×2 (13:11→20:26)
[2021-04-15] MEDS: AZITHROMYCIN INJ 500 MG in SODIUM CHLORIDE 0.9% 250 ML IV SCH (14:17)
[2021-04-15] MEDS: CETIRIZINE 10 MG TABLET PO SCH (20:25)
[2021-04-15] MEDS: LEVOFLOXACIN INJ 500 MG/100 ML PREMIX IV SCH (20:27)
[2021-04-16] MEDS: ALBUTEROL/IPRATROPIUM 3 ML NEB RESP TX SCH ×4 (01:37→18:29)
[2021-04-16 05:14] LABS: Basophils # 0.1 10*3/uL (0.0-0.2); Basophils % 0.5 % (0.0-0.8); Eosinophils # 0.4 10*3/uL (0.0-0.87); Eosinophils % 3.9 % (0.00-10.9); Hematocrit 24.8 VOL% (35.7-47.0); Hemoglobin 7.8 GM/DL (12.0-16.0); Immature Granulocytes % 0.3 %; Immature Granulocytes Absolute 0.03 #; Lymphocytes # 2.2 10*3/uL (1.4-4.0); Lymphocytes % 22.6 % (21.3-54.2); Mean Corpuscular HGB Conc 31.5 GM/DL (32-36); Mean Corpuscular Volume 74.3 FL (87-102); Monocytes % 10.1 % (1.7-12.7); Neutrophils % 62.6 % (38.7-73.9); Platelet Count 120 T/CUMM (130-400); Red Blood Count 3.34 MC/CUMM (3.8-5.5); Red Cell Distribution Width 24.6 % (9.3-17.3); White Blood Count 9.5 T/CUMM (4-12)
[2021-04-16 08:57] LABS: Osmolality,Calculated 281.5 MOS/KG (273-304); Potassium 4.3 MMOL/L (3.5-5.1)
[2021-04-16 09:03] LABS: Ferritin 204.8 ng/mL (8-252)
[2021-04-16 09:10] LABS: Folate 8.92 NG/ML (5.38-24.0)
[2021-04-16] MEDS: FLUTICASONE 50 MCG NASAL SPRAY 16 GM BOTTLE BOTH NARES SCH ×2 (09:11→20:52)
[2021-04-16] MEDS: LACTULOSE 20 GM/30 ML UDCUP PO SCH ×2 (09:11→14:50)
[2021-04-16] MEDS: FERROUS SULFATE 325 MG TABLET PO SCH ×2 (09:11→20:52)
[2021-04-16] MEDS: DESITIN 4OZ/NYSTATIN 15 GRAM MIXTURE PASTE TOP SCH ×2 (09:12→20:53)
[2021-04-16] MEDS: OMEPRAZOLE ODT 20 MG TABLET PO SCH (12:50)
[2021-04-16] MEDS: amLODIPine 10 MG TABLET PO SCH (12:50)
[2021-04-16] MEDS: calcitrioL 0.25 MCG CAPSULE PO SCH (12:50)
[2021-04-16] MEDS: CLOPIDOGREL 75 MG TABLET PO SCH (12:50)
[2021-04-16] MEDS: FUROSEMIDE 40 MG/4 ML VIAL IV SCH (12:51)
[2021-04-16] MEDS: ACETAMINOPHEN 325 MG TABLET PO PRN (17:19)
[2021-04-16] MEDS: CETIRIZINE 10 MG TABLET PO SCH (20:52)
[2021-04-17] MEDS: ALBUTEROL/IPRATROPIUM 3 ML NEB RESP TX SCH ×4 (01:33→18:12)
[2021-04-17 06:29] LABS: Basophils % 0.5 % (0.0-0.8); Eosinophils # 0.4 10*3/uL (0.0-0.87); Eosinophils % 5.3 % (0.00-10.9); Hematocrit 23.3 VOL% (35.7-47.0); Hemoglobin 7.4 GM/DL (12.0-16.0); Immature Granulocytes % 0.3 %; Immature Granulocytes Absolute 0.02 #; Lymphocytes # 2.2 10*3/uL (1.4-4.0); Lymphocytes % 28.4 % (21.3-54.2); Mean Corpuscular HGB Conc 31.8 GM/DL (32-36); Mean Corpuscular Volume 74.7 FL (87-102); Monocytes % 10.6 % (1.7-12.7); Neutrophils % 54.9 % (38.7-73.9); Platelet Count 124 T/CUMM (130-400); Red Blood Count 3.12 MC/CUMM (3.8-5.5); Red Cell Distribution Width 24.3 % (9.3-17.3); White Blood Count 7.8 T/CUMM (4-12)
[2021-04-17 07:03] LABS: Calcium 8.7 MG/DL (8.5-10.1); Osmolality,Calculated 280.4 MOS/KG (273-304); Potassium 4.6 MMOL/L (3.5-5.1)
[2021-04-17] MEDS: FUROSEMIDE 40 MG/4 ML VIAL IV SCH (08:32)
[2021-04-17] MEDS: amLODIPine 10 MG TABLET PO SCH (08:33)
[2021-04-17] MEDS: CLOPIDOGREL 75 MG TABLET PO SCH (08:33)
[2021-04-17] MEDS: LACTULOSE 20 GM/30 ML UDCUP PO SCH (08:33)
[2021-04-17] MEDS: calcitrioL 0.25 MCG CAPSULE PO SCH (08:33)
[2021-04-17] MEDS: DESITIN 4OZ/NYSTATIN 15 GRAM MIXTURE PASTE TOP SCH ×2 (08:33→20:29)
[2021-04-17] MEDS: OMEPRAZOLE ODT 20 MG TABLET PO SCH (08:33)
[2021-04-17] MEDS: FERROUS SULFATE 325 MG TABLET PO SCH ×2 (08:33→20:28)
[2021-04-17] MEDS: FLUTICASONE 50 MCG NASAL SPRAY 16 GM BOTTLE BOTH NARES SCH ×2 (08:34→20:29)
[2021-04-17] MEDS: CETIRIZINE 10 MG TABLET PO SCH (20:28)
[2021-04-17] MEDS: LEVOFLOXACIN INJ 500 MG/100 ML PREMIX IV SCH (20:29)
[2021-04-17] MEDS: ACETAMINOPHEN 325 MG TABLET PO PRN (22:44)
[2021-04-18] MEDS: ALBUTEROL/IPRATROPIUM 3 ML NEB RESP TX SCH ×4 (00:44→19:25)
[2021-04-18 07:40] LABS: Basophils % 0.4 % (0.0-0.8); Eosinophils # 0.4 10*3/uL (0.0-0.87); Eosinophils % 5.1 % (0.00-10.9); Hematocrit 23.9 VOL% (35.7-47.0); Hemoglobin 7.6 GM/DL (12.0-16.0); Immature Granulocytes % 0.3 %; Immature Granulocytes Absolute 0.02 #; Lymphocytes # 1.9 10*3/uL (1.4-4.0); Lymphocytes % 25.2 % (21.3-54.2); Mean Corpuscular HGB Conc 31.8 GM/DL (32-36); Mean Corpuscular Volume 74.5 FL (87-102); Monocytes % 10.5 % (1.7-12.7); Neutrophils % 58.5 % (38.7-73.9); Platelet Count 164 T/CUMM (130-400); Red Blood Count 3.21 MC/CUMM (3.8-5.5); Red Cell Distribution Width 24.3 % (9.3-17.3); White Blood Count 7.5 T/CUMM (4-12)
[2021-04-18 08:05] LABS: Hypochromasia 1+; Microcytosis Slight; Platelet Estimate Normal; Target Cells Few
[2021-04-18 08:06] LABS: Calcium 9.1 MG/DL (8.5-10.1); Osmolality,Calculated 279.8 MOS/KG (273-304); Potassium 4.9 MMOL/L (3.5-5.1)
[2021-04-18] MEDS: calcitrioL 0.25 MCG CAPSULE PO SCH (12:48)
[2021-04-18] MEDS: amLODIPine 10 MG TABLET PO SCH (12:48)
[2021-04-18] MEDS: FERROUS SULFATE 325 MG TABLET PO SCH ×2 (12:48→20:25)
[2021-04-18] MEDS: CLOPIDOGREL 75 MG TABLET PO SCH (12:48)
[2021-04-18] MEDS: OMEPRAZOLE ODT 20 MG TABLET PO SCH (12:48)
[2021-04-18] MEDS: LACTULOSE 20 GM/30 ML UDCUP PO SCH (12:49)
[2021-04-18] MEDS: DESITIN 4OZ/NYSTATIN 15 GRAM MIXTURE PASTE TOP SCH ×2 (12:50→20:25)
[2021-04-18] MEDS: FLUTICASONE 50 MCG NASAL SPRAY 16 GM BOTTLE BOTH NARES SCH ×2 (12:52→20:25)
[2021-04-18] MEDS: FUROSEMIDE 40 MG/4 ML VIAL IV SCH (13:58)
[2021-04-18] MEDS: CETIRIZINE 10 MG TABLET PO SCH (20:25)
[2021-04-19] MEDS: ALBUTEROL/IPRATROPIUM 3 ML NEB RESP TX SCH ×4 (00:02→19:44)
[2021-04-19 09:22] LABS: Basophils % 0.5 % (0.0-0.8); Eosinophils # 0.4 10*3/uL (0.0-0.87); Eosinophils % 4.4 % (0.00-10.9); Hematocrit 24.7 VOL% (35.7-47.0); Hemoglobin 7.9 GM/DL (12.0-16.0); Immature Granulocytes % 0.3 %; Immature Granulocytes Absolute 0.02 #; Lymphocytes # 2.3 10*3/uL (1.4-4.0); Lymphocytes % 28.6 % (21.3-54.2); Mean Corpuscular Volume 74.4 FL (87-102); Monocytes % 10.5 % (1.7-12.7); Neutrophils % 55.7 % (38.7-73.9); Platelet Count 134 T/CUMM (130-400); Red Blood Count 3.32 MC/CUMM (3.8-5.5); Red Cell Distribution Width 25.2 % (9.3-17.3); White Blood Count 7.9 T/CUMM (4-12)
[2021-04-19 09:33] LABS: Calcium 9.2 MG/DL (8.5-10.1); Osmolality,Calculated 280.7 MOS/KG (273-304)
[2021-04-19] MEDS: LACTULOSE 20 GM/30 ML UDCUP PO SCH (09:44)
[2021-04-19] MEDS: FLUTICASONE 50 MCG NASAL SPRAY 16 GM BOTTLE BOTH NARES SCH ×2 (09:44→20:53)
[2021-04-19] MEDS: OMEPRAZOLE ODT 20 MG TABLET PO SCH (09:45)
[2021-04-19] MEDS: CLOPIDOGREL 75 MG TABLET PO SCH (09:45)
[2021-04-19] MEDS: FERROUS SULFATE 325 MG TABLET PO SCH ×2 (09:45→20:53)
[2021-04-19] MEDS: DESITIN 4OZ/NYSTATIN 15 GRAM MIXTURE PASTE TOP SCH ×2 (09:45→20:53)
[2021-04-19] MEDS: calcitrioL 0.25 MCG CAPSULE PO SCH (09:45)
[2021-04-19] MEDS: amLODIPine 10 MG TABLET PO SCH (09:47)
[2021-04-19 09:59] LABS: Anisocytosis 3+; Platelet Estimate Adequate
[2021-04-19 10:00] LABS: Hypochromasia 1+; Ovalocytes Few; Poikilocytosis 1+; Target Cells 1+; Tear Drop Cells Few
[2021-04-19] MEDS: FUROSEMIDE 40 MG/4 ML VIAL IV SCH (11:37)
[2021-04-19] MEDS: ACETAMINOPHEN 325 MG TABLET PO PRN (12:39)
[2021-04-19] MEDS: CETIRIZINE 10 MG TABLET PO SCH (20:53)
[2021-04-19] MEDS: LEVOFLOXACIN INJ 500 MG/100 ML PREMIX IV SCH (21:00)
[2021-04-20] MEDS: ALBUTEROL/IPRATROPIUM 3 ML NEB RESP TX SCH ×4 (01:29→20:18)
[2021-04-20 05:17] LABS: Basophils % 0.4 % (0.0-0.8); Eosinophils # 0.3 10*3/uL (0.0-0.87); Hematocrit 23.4 VOL% (35.7-47.0); Hemoglobin 7.4 GM/DL (12.0-16.0); Immature Granulocytes % 0.1 %; Immature Granulocytes Absolute 0.01 #; Lymphocytes % 28.4 % (21.3-54.2); Mean Corpuscular HGB Conc 31.6 GM/DL (32-36); Mean Corpuscular Volume 73.8 FL (87-102); Monocytes % 10.2 % (1.7-12.7); Neutrophils % 56.9 % (38.7-73.9); Platelet Count 146 T/CUMM (130-400); Red Blood Count 3.17 MC/CUMM (3.8-5.5); Red Cell Distribution Width 24.5 % (9.3-17.3)
[2021-04-20 05:29] LABS: Calcium 9.2 MG/DL (8.5-10.1); Potassium 4.9 MMOL/L (3.5-5.1)
[2021-04-20 05:57] LABS: Platelet Estimate Adequate
[2021-04-20 05:58] LABS: Anisocytosis 2+; Ovalocytes 1+; Poikilocytosis 1+; Target Cells 1+
[2021-04-20 05:59] LABS: Hypochromasia Slight; Schistocytes Few
[2021-04-20] MEDS: LACTULOSE 20 GM/30 ML UDCUP PO SCH (08:29)
[2021-04-20] MEDS: CLOPIDOGREL 75 MG TABLET PO SCH (08:38)
[2021-04-20] MEDS: OMEPRAZOLE ODT 20 MG TABLET PO SCH (08:38)
[2021-04-20] MEDS: FLUTICASONE 50 MCG NASAL SPRAY 16 GM BOTTLE BOTH NARES SCH ×2 (08:39→21:01)
[2021-04-20] MEDS: FERROUS SULFATE 325 MG TABLET PO SCH ×2 (08:39→21:01)
[2021-04-20] MEDS: DESITIN 4OZ/NYSTATIN 15 GRAM MIXTURE PASTE TOP SCH ×2 (08:39→21:01)
[2021-04-20] MEDS: calcitrioL 0.25 MCG CAPSULE PO SCH (08:39)
[2021-04-20] MEDS: amLODIPine 10 MG TABLET PO SCH (08:39)
[2021-04-20] MEDS: FUROSEMIDE 40 MG/4 ML VIAL IV SCH (09:43)
[2021-04-20] MEDS: ALBUTEROL/IPRATROPIUM 3 ML NEB RESP TX PRN (17:00)
[2021-04-20] MEDS: CETIRIZINE 10 MG TABLET PO SCH (21:00)
[2021-04-20] MEDS: ACETAMINOPHEN 325 MG TABLET PO PRN (23:29)
[2021-04-21] MEDS: ALBUTEROL/IPRATROPIUM 3 ML NEB RESP TX SCH ×4 (01:43→19:04)
[2021-04-21 06:43] LABS: Basophils % 0.5 % (0.0-0.8); Eosinophils # 0.3 10*3/uL (0.0-0.87); Eosinophils % 3.8 % (0.00-10.9); Hemoglobin 7.8 GM/DL (12.0-16.0); Immature Granulocytes % 0.3 %; Immature Granulocytes Absolute 0.02 #; Lymphocytes # 2.1 10*3/uL (1.4-4.0); Lymphocytes % 27.8 % (21.3-54.2); Mean Corpuscular HGB Conc 32.5 GM/DL (32-36); Mean Corpuscular Volume 72.9 FL (87-102); Monocytes % 11.3 % (1.7-12.7); Neutrophils % 56.3 % (38.7-73.9); Platelet Count 169 T/CUMM (130-400); Red Blood Count 3.29 MC/CUMM (3.8-5.5); Red Cell Distribution Width 24.6 % (9.3-17.3); White Blood Count 7.4 T/CUMM (4-12)
[2021-04-21 07:08] LABS: Anisocytosis 2+; Burr Cells Few; Calcium 8.9 MG/DL (8.5-10.1); Ovalocytes Few; Platelet Estimate Normal; Potassium 5.3 MMOL/L (3.5-5.1)
[2021-04-21 07:09] LABS: Hypochromasia 1+; Target Cells 2+
[2021-04-21] MEDS: LACTULOSE 20 GM/30 ML UDCUP PO SCH ×2 (10:52→13:27)
[2021-04-21] MEDS: FERROUS SULFATE 325 MG TABLET PO SCH ×3 (10:52→21:47)
[2021-04-21] MEDS: FLUTICASONE 50 MCG NASAL SPRAY 16 GM BOTTLE BOTH NARES SCH ×2 (10:52→21:47)
[2021-04-21] MEDS: OMEPRAZOLE ODT 20 MG TABLET PO SCH ×2 (10:53→13:07)
[2021-04-21] MEDS: CLOPIDOGREL 75 MG TABLET PO SCH ×2 (10:53→13:07)
[2021-04-21] MEDS: calcitrioL 0.25 MCG CAPSULE PO SCH ×2 (10:53→13:06)
[2021-04-21] MEDS: FUROSEMIDE 40 MG/4 ML VIAL IV SCH ×2 (10:53→13:12)
[2021-04-21] MEDS: amLODIPine 10 MG TABLET PO SCH ×2 (10:53→13:06)
[2021-04-21] MEDS: NICOTINE 21 MG/24 HR PATCH TRANSDERM SCH (10:54)
[2021-04-21] MEDS: DESITIN 4OZ/NYSTATIN 15 GRAM MIXTURE PASTE TOP SCH ×2 (10:54→21:47)
[2021-04-21] MEDS: ACETAMINOPHEN 325 MG TABLET PO PRN (17:40)
[2021-04-21] MEDS: LEVOFLOXACIN INJ 500 MG/100 ML PREMIX IV SCH (21:46)
[2021-04-21] MEDS: CETIRIZINE 10 MG TABLET PO SCH (21:47)
[2021-04-22] MEDS: ALBUTEROL/IPRATROPIUM 3 ML NEB RESP TX SCH ×4 (01:12→20:03)
[2021-04-22 06:29] LABS: Basophils # 0.1 10*3/uL (0.0-0.2); Basophils % 0.8 % (0.0-0.8); Eosinophils # 0.3 10*3/uL (0.0-0.87); Eosinophils % 4.6 % (0.00-10.9); Hemoglobin 7.3 GM/DL (12.0-16.0); Immature Granulocytes % 0.2 %; Immature Granulocytes Absolute 0.01 #; Lymphocytes # 1.9 10*3/uL (1.4-4.0); Lymphocytes % 29.8 % (21.3-54.2); Mean Corpuscular HGB Conc 31.7 GM/DL (32-36); Monocytes % 12.6 % (1.7-12.7); Platelet Count 198 T/CUMM (130-400); Red Blood Count 3.15 MC/CUMM (3.8-5.5); Red Cell Distribution Width 24.4 % (9.3-17.3); White Blood Count 6.4 T/CUMM (4-12)
[2021-04-22 06:40] LABS: Osmolality,Calculated 285.4 MOS/KG (273-304); Potassium 4.7 MMOL/L (3.5-5.1)
[2021-04-22 07:00] LABS: Hypochromasia 2+
[2021-04-22 07:01] LABS: Acanthocytes Few; Microcytosis 1+; Ovalocytes Few; Target Cells Slight
[2021-04-22 07:02] LABS: Platelet Estimate Adequate
[2021-04-22] MEDS: LACTULOSE 20 GM/30 ML UDCUP PO SCH ×2 (09:33→21:24)
[2021-04-22] MEDS: FLUTICASONE 50 MCG NASAL SPRAY 16 GM BOTTLE BOTH NARES SCH ×2 (09:35→21:24)
[2021-04-22] MEDS: FUROSEMIDE 40 MG/4 ML VIAL IV SCH (09:36)
[2021-04-22] MEDS: FERROUS SULFATE 325 MG TABLET PO SCH ×2 (09:41→21:23)
[2021-04-22] MEDS: amLODIPine 10 MG TABLET PO SCH (09:41)
[2021-04-22] MEDS: CLOPIDOGREL 75 MG TABLET PO SCH (09:41)
[2021-04-22] MEDS: OMEPRAZOLE ODT 20 MG TABLET PO SCH (09:41)
[2021-04-22] MEDS: calcitrioL 0.25 MCG CAPSULE PO SCH (09:41)
[2021-04-22] MEDS: METOPROLOL TARTRATE 50 MG TABLET PO SCH ×2 (09:41→21:23)
[2021-04-22] MEDS: NICOTINE 21 MG/24 HR PATCH TRANSDERM SCH (11:59)
[2021-04-22] MEDS: ACETAMINOPHEN 325 MG TABLET PO PRN ×2 (14:39→21:24)
[2021-04-22] MEDS: DESITIN 4OZ/NYSTATIN 15 GRAM MIXTURE PASTE TOP SCH ×2 (14:41→21:24)
[2021-04-22] MEDS: CETIRIZINE 10 MG TABLET PO SCH (21:24)
[2021-04-23] MEDS: ACETAMINOPHEN 325 MG TABLET PO PRN (00:47)
[2021-04-23] MEDS: ALBUTEROL/IPRATROPIUM 3 ML NEB RESP TX SCH ×3 (01:05→13:41)
[2021-04-23 06:22] LABS: Basophils # 0.1 10*3/uL (0.0-0.2); Basophils % 0.8 % (0.0-0.8); Eosinophils # 0.3 10*3/uL (0.0-0.87); Eosinophils % 4.1 % (0.00-10.9); Hematocrit 22.7 VOL% (35.7-47.0); Hemoglobin 7.2 GM/DL (12.0-16.0); Immature Granulocytes % 0.3 %; Immature Granulocytes Absolute 0.02 #; Lymphocytes # 2.1 10*3/uL (1.4-4.0); Lymphocytes % 26.2 % (21.3-54.2); Mean Corpuscular HGB Conc 31.7 GM/DL (32-36); Mean Corpuscular Volume 73.2 FL (87-102); Monocytes % 11.3 % (1.7-12.7); Neutrophils % 57.3 % (38.7-73.9); Platelet Count 232 T/CUMM (130-400); Red Cell Distribution Width 24.3 % (9.3-17.3); White Blood Count 7.9 T/CUMM (4-12)
[2021-04-23 06:46] LABS: Calcium 8.6 MG/DL (8.5-10.1); Hypochromasia 2+; Osmolality,Calculated 282.1 MOS/KG (273-304); Potassium 5.3 MMOL/L (3.5-5.1)
[2021-04-23 06:47] LABS: Acanthocytes Few; Microcytosis 1+; Ovalocytes Few; Target Cells Few
[2021-04-23 06:48] LABS: Platelet Estimate Normal; Schistocytes Slight
[2021-04-23 09:01] VITALS: BP 133/70
[2021-04-23] MEDS: DESITIN 4OZ/NYSTATIN 15 GRAM MIXTURE PASTE TOP SCH (11:41)
[2021-04-23] MEDS: FUROSEMIDE 40 MG/4 ML VIAL IV SCH (13:51)
[2021-04-23] MEDS: FLUTICASONE 50 MCG NASAL SPRAY 16 GM BOTTLE BOTH NARES SCH (13:51)
[2021-04-23] MEDS: LACTULOSE 20 GM/30 ML UDCUP PO SCH (13:51)
[2021-04-23] MEDS: METOPROLOL TARTRATE 50 MG TABLET PO SCH (13:51)
[2021-04-23] MEDS: FERROUS SULFATE 325 MG TABLET PO SCH (13:51)
[2021-04-23] MEDS: CLOPIDOGREL 75 MG TABLET PO SCH (13:52)
[2021-04-23] MEDS: amLODIPine 10 MG TABLET PO SCH (13:52)
[2021-04-23] MEDS: calcitrioL 0.25 MCG CAPSULE PO SCH (13:52)
[2021-04-23] MEDS: OMEPRAZOLE ODT 20 MG TABLET PO SCH (13:52)
[2021-04-23] MEDS: NICOTINE 21 MG/24 HR PATCH TRANSDERM SCH (13:53)
== END 2021-04-23 14:05 | DRG 279 ==
LOC: EDUNIT# → EDBD → N.ED 13:09 → N.TELEN 16:43 → SUATTDRO 16:43 → N.TELEN 18:20
PROVIDERS: ADMIT Internal Medicine; ATTEND Internal Medicine

== ENCOUNTER 2021-10-20 15:35 | Inpatient (IN) ==
[2021-10-20] MEDS ORDERED: SODIUM CHLORIDE 0.9% 1,000 ML IV STA (15:57)
[2021-10-20] MEDS ORDERED: PIPERACILLIN/TAZOBACTAM 3,375 MG in SODIUM CHLORIDE 0.9% 100 ML IV STA (15:58)
[2021-10-20 16:05] LABS: Basophils % 0.4 % (0.0-0.8); Eosinophils # 0.4 10*3/uL (0.0-0.87); Eosinophils % 3.9 % (0.00-10.9); Hematocrit 31.3 VOL% (35.7-47.0); Hemoglobin 9.8 GM/DL (12.0-16.0); Immature Granulocytes % 0.3 %; Immature Granulocytes Absolute 0.03 #; Lymphocytes % 28.4 % (21.3-54.2); Mean Corpuscular HGB Conc 31.3 GM/DL (32-36); Mean Corpuscular Volume 80.9 FL (87-102); Mean Platelet Volume 10.3 FL (9.6-12.0); Monocytes # 1.5 10*3/uL (0.11-0.8); Monocytes % 13.8 % (1.7-12.7); Neutrophils % 53.2 % (38.7-73.9); Platelet Count 232 T/CUMM (130-400); Red Blood Count 3.87 MC/CUMM (3.8-5.5); Red Cell Distribution Width 15.4 % (9.3-17.3); White Blood Count 10.5 T/CUMM (4-12)
[2021-10-20 16:21] LABS: Alanine Aminotransferase 22 U/L (13-56); Albumin 3.1 G/DL (3.4-5.0); Alkaline Phosphatase 97 U/L (45-117); Amylase 173 U/L (25-115); Aspartate Amino Transferase 25 U/L (0-37); Bilirubin,Total < 0.39 MG/DL (0.20-1.00); Blood Urea Nitrogen 30 MG/DL (7-18); Carbon Dioxide 31 MMOL/L (21-32); Chloride 102 MMOL/L (98-107); Estimated Glom Filtration Rate 13 ML/MIN; Glucose 93 MG/DL (74-106); Osmolality,Calculated 278.8 MOS/KG (273-304); Potassium 4.7 MMOL/L (3.5-5.1); Sodium 137 MMOL/L (136-145); Total Protein 8.2 G/DL (6.4-8.2)
[2021-10-20 18:32] LABS: Bacteria,Urine Occasional /HPF (Few); Squamous Epithelial Cell,Urine Occasional /HPF (0-10)
[2021-10-20 18:33] LABS: Bilirubin,Urine Negative (Negative); Blood, Urine Trace mg/dL (Negative); Glucose,Urine (UA) Negative (Negative); Ketones,Urine Negative (Negative); Nitrite,Urine Negative (Negative); Protein,Urine 100 mg/dL (Negative); Urine Appearance Clear (Clear); Urine Color Yellow (Yellow); Urine Specific Gravity 1.015 (1.001-1.035); Urine Urobilinogen 0.2 eU/dL (<2.0); Urine pH 8.5 (4.5-8.0)
[2021-10-20] MEDS ORDERED: GLUCAGON 1 MG VIAL IM PRN (19:42)
[2021-10-20] MEDS ORDERED: hydrALAZINE 20 MG/1 ML VIAL IV PRN (19:48)
[2021-10-20] MEDS ORDERED: DEXTROMETHORPHAN ER 6 MG/ML 90 ML/BOTTLE PO PRN (19:50)
[2021-10-20] MEDS ORDERED: SEVELAMER CARBONATE 800 MG TABLET PO SCH (20:00)
[2021-10-20 20:09] LABS: % Iron Saturation 12.4 % (18-50)
[2021-10-20] MEDS ORDERED: DEXTROSE 10% 250 ML BAG IV PRN (20:18)
[2021-10-20 20:21] LABS: Folate 20.12 NG/ML (5.38-24.0)
[2021-10-20] MEDS: HEPARIN 5,000 UNIT/1 ML VIAL SUBCUT SCH (21:58)
[2021-10-20] MEDS: MORPHINE 2 MG/1 ML SYRINGE IV PRN (21:58)
[2021-10-20] MEDS: FERROUS SULFATE 325 MG TABLET PO SCH (21:58)
[2021-10-20] MEDS: levETIRAcetam 500 MG TABLET PO SCH (21:58)
[2021-10-21 01:59] LABS: Barbiturates Screen,Urine Negative (Negative); Benzodiazepines Screen,Urine Negative (Negative); Cannabinoid Screen,Urine Negative (Negative); Opiate Screen,Urine Positive (Negative); Phencyclidine Screen,Urine Negative (Negative)
[2021-10-21] MEDS: PIPERACILLIN/TAZOBACTAM 3,375 MG in SODIUM CHLORIDE 0.9% 100 ML IV SCH ×2 (04:00→21:49)
[2021-10-21] MEDS ORDERED: PIPERACILLIN/TAZOBACTAM 3.375 MG in SODIUM CHLORIDE 0.9% 100 ML IV SCH (04:00)
[2021-10-21 06:42] LABS: Basophils % 0.4 % (0.0-0.8); Eosinophils # 0.4 10*3/uL (0.0-0.87); Eosinophils % 4.3 % (0.00-10.9); Hematocrit 30.7 VOL% (35.7-47.0); Hemoglobin 9.5 GM/DL (12.0-16.0); Immature Granulocytes % 0.2 %; Immature Granulocytes Absolute 0.02 #; Lymphocytes # 3.7 10*3/uL (1.4-4.0); Lymphocytes % 39.1 % (21.3-54.2); Mean Corpuscular HGB Conc 30.9 GM/DL (32-36); Mean Corpuscular Volume 81.2 FL (87-102); Mean Platelet Volume 10.4 FL (9.6-12.0); Monocytes # 1.2 10*3/uL (0.11-0.8); Monocytes % 12.3 % (1.7-12.7); Neutrophils % 43.7 % (38.7-73.9); Platelet Count 217 T/CUMM (130-400); Red Blood Count 3.78 MC/CUMM (3.8-5.5); Red Cell Distribution Width 15.4 % (9.3-17.3); White Blood Count 9.5 T/CUMM (4-12)
[2021-10-21 07:34] LABS: Calcium 8.9 MG/DL (8.5-10.1); Osmolality,Calculated 278.8 MOS/KG (273-304); Potassium 4.4 MMOL/L (3.5-5.1); Risk Ratio 2.8
[2021-10-21] MEDS: HEPARIN 5,000 UNIT/1 ML VIAL SUBCUT SCH (08:03)
[2021-10-21] MEDS: SEVELAMER CARBONATE 800 MG TABLET PO SCH ×3 (08:03→16:01)
[2021-10-21] MEDS: amLODIPine 10 MG TABLET PO SCH (08:04)
[2021-10-21] MEDS: PANTOPRAZOLE 40 MG TABLET PO SCH (08:04)
[2021-10-21] MEDS: FERROUS SULFATE 325 MG TABLET PO SCH ×2 (08:04→21:47)
[2021-10-21] MEDS: levETIRAcetam 500 MG TABLET PO SCH ×2 (08:04→21:47)
[2021-10-21 08:09] LABS: INR 1.1; PT Patient Result 11.7 SECS (10.5-12.0)
[2021-10-21] MEDS ORDERED: HEPARIN 10,000 UNIT/10 ML VIAL IV ONE (12:45)
[2021-10-22] MEDS: MORPHINE 2 MG/1 ML SYRINGE IV PRN ×2 (02:57→14:05)
[2021-10-22 06:01] LABS: Basophils # 0.1 10*3/uL (0.0-0.2); Basophils % 0.7 % (0.0-0.8); Eosinophils # 0.6 10*3/uL (0.0-0.87); Eosinophils % 6.2 % (0.00-10.9); Hematocrit 32.1 VOL% (35.7-47.0); Hemoglobin 9.8 GM/DL (12.0-16.0); Immature Granulocytes % 0.2 %; Immature Granulocytes Absolute 0.02 #; Lymphocytes # 3.9 10*3/uL (1.4-4.0); Lymphocytes % 39.1 % (21.3-54.2); Mean Corpuscular HGB Conc 30.5 GM/DL (32-36); Mean Corpuscular Volume 82.1 FL (87-102); Mean Platelet Volume 10.3 FL (9.6-12.0); Monocytes # 1.3 10*3/uL (0.11-0.8); Monocytes % 13.2 % (1.7-12.7); Neutrophils % 40.6 % (38.7-73.9); Platelet Count 232 T/CUMM (130-400); Red Blood Count 3.91 MC/CUMM (3.8-5.5); Red Cell Distribution Width 15.1 % (9.3-17.3)
[2021-10-22 06:16] LABS: Calcium 9.7 MG/DL (8.5-10.1); Osmolality,Calculated 274.1 MOS/KG (273-304); Potassium 5.1 MMOL/L (3.5-5.1)
[2021-10-22] MEDS: SODIUM CHLORIDE 0.9% 1,000 ML IV SCH ×2 (12:00→12:22)
[2021-10-22] MEDS ORDERED: propofoL 200 MG/20 ML VIAL IV ONE (12:46)
[2021-10-22] MEDS ORDERED: LIDOCAINE 2% 5 ML VIAL ONE (12:46)
[2021-10-22] MEDS ORDERED: ETOMIDATE 20 MG/10 ML VIAL IV ONE (12:46)
[2021-10-22] MEDS: SEVELAMER CARBONATE 800 MG TABLET PO SCH ×2 (14:26→18:33)
[2021-10-22] MEDS: levETIRAcetam 500 MG TABLET PO SCH ×2 (17:19→20:51)
[2021-10-22] MEDS: FERROUS SULFATE 325 MG TABLET PO SCH ×2 (17:19→20:51)
[2021-10-22] MEDS: PANTOPRAZOLE 40 MG TABLET PO SCH (18:33)
[2021-10-22] MEDS: amLODIPine 10 MG TABLET PO SCH (18:33)
[2021-10-22] MEDS: PIPERACILLIN/TAZOBACTAM 3,375 MG in SODIUM CHLORIDE 0.9% 100 ML IV SCH (18:33)
[2021-10-23] MEDS: PIPERACILLIN/TAZOBACTAM 3,375 MG in SODIUM CHLORIDE 0.9% 100 ML IV SCH ×2 (05:15→16:27)
[2021-10-23] MEDS: FERROUS SULFATE 325 MG TABLET PO SCH ×2 (08:45→21:42)
[2021-10-23] MEDS: levETIRAcetam 500 MG TABLET PO SCH ×2 (08:45→21:42)
[2021-10-23] MEDS: SEVELAMER CARBONATE 800 MG TABLET PO SCH ×3 (08:45→16:27)
[2021-10-23] MEDS: amLODIPine 10 MG TABLET PO SCH (08:46)
[2021-10-23] MEDS: PANTOPRAZOLE 40 MG TABLET PO SCH (08:46)
[2021-10-23] MEDS ORDERED: HEPARIN 10,000 UNIT/10 ML VIAL IV ONE (11:00)
[2021-10-23] MEDS ORDERED: hydrOXYzine HCL 25 MG TABLET PO PRN (17:40)
[2021-10-24] MEDS: PIPERACILLIN/TAZOBACTAM 3,375 MG in SODIUM CHLORIDE 0.9% 100 ML IV SCH (06:04)
[2021-10-24] MEDS: levETIRAcetam 500 MG TABLET PO SCH (09:53)
[2021-10-24] MEDS: FERROUS SULFATE 325 MG TABLET PO SCH (09:53)
[2021-10-24] MEDS: amLODIPine 10 MG TABLET PO SCH (09:53)
[2021-10-24] MEDS: PANTOPRAZOLE 40 MG TABLET PO SCH (09:54)
[2021-10-24] MEDS: SEVELAMER CARBONATE 800 MG TABLET PO SCH ×2 (09:54→12:24)
[2021-10-24 15:08] VITALS: BP 127/75
== END 2021-10-24 14:50 | DRG 282 ==
LOC: N.ED 15:35 → N.EDINP 19:42 → N.5E 10-21 00:18
PROVIDERS: ADMIT Internal Medicine; ATTEND Internal Medicine

== ENCOUNTER 2021-10-29 13:45 | Observation (INO) ==
[2021-10-29] MEDS ORDERED: SODIUM CHLORIDE 0.9% 500 ML IV STA (14:37)
[2021-10-29 16:10] LABS: Basophils # 0.1 10*3/uL (0.0-0.2); Basophils % 0.4 % (0.0-0.8); Eosinophils # 0.6 10*3/uL (0.0-0.87); Hematocrit 28.4 VOL% (35.7-47.0); Hemoglobin 8.8 GM/DL (12.0-16.0); Immature Granulocytes % 0.3 %; Immature Granulocytes Absolute 0.03 #; Lymphocytes # 3.9 10*3/uL (1.4-4.0); Lymphocytes % 33.4 % (21.3-54.2); Mean Corpuscular Volume 79.8 FL (87-102); Mean Platelet Volume 10.8 FL (9.6-12.0); Monocytes # 1.6 10*3/uL (0.11-0.8); Monocytes % 14.2 % (1.7-12.7); Neutrophils % 46.7 % (38.7-73.9); Platelet Count 297 T/CUMM (130-400); Red Blood Count 3.56 MC/CUMM (3.8-5.5); Red Cell Distribution Width 14.2 % (9.3-17.3); White Blood Count 11.5 T/CUMM (4-12)
[2021-10-29 16:37] LABS: Alanine Aminotransferase 16 U/L (13-56); Albumin 2.7 G/DL (3.4-5.0); Alkaline Phosphatase 74 U/L (45-117); Aspartate Amino Transferase 21 U/L (0-37); Bilirubin,Total < 0.39 MG/DL (0.20-1.00); Blood Urea Nitrogen 28 MG/DL (7-18); Calcium 9.5 MG/DL (8.5-10.1); Carbon Dioxide 30 MMOL/L (21-32); Chloride 97 MMOL/L (98-107); Glucose 84 MG/DL (74-106); Osmolality,Calculated 268.5 MOS/KG (273-304); Potassium 4.5 MMOL/L (3.5-5.1); Sodium 132 MMOL/L (136-145)
[2021-10-29 16:38] LABS: Estimated Glom Filtration Rate 0 ML/MIN
[2021-10-29] MEDS ORDERED: hydrALAZINE 20 MG/1 ML VIAL IV PRN (17:32)
[2021-10-29] MEDS ORDERED: ONDANSETRON 4 MG/2 ML VIAL IV PRN (17:32)
[2021-10-29] MEDS ORDERED: GLUCAGON 1 MG VIAL IM PRN (17:32)
[2021-10-29] MEDS ORDERED: DEXTROSE 10% 250 ML BAG IV PRN (17:48)
[2021-10-29] MEDS: ACETAMINOPHEN 325 MG TABLET PO PRN (17:52)
[2021-10-29 18:04] LABS: Risk Ratio 3.91; Thyroid Stimulating Hormone 2.21 uIU/ml (0.358-3.74); VLDL Cholesterol 22.6 MG/DL
[2021-10-29] MEDS: FERROUS SULFATE 325 MG TABLET PO SCH (20:49)
[2021-10-29] MEDS: CETIRIZINE 10 MG TABLET PO SCH (20:49)
[2021-10-29] MEDS: LACTULOSE 20 GM/30 ML UDCUP PO SCH (20:49)
[2021-10-29] MEDS: levETIRAcetam 500 MG TABLET PO SCH (20:49)
[2021-10-30 06:57] LABS: Basophils % 0.4 % (0.0-0.8); Eosinophils # 0.4 10*3/uL (0.0-0.87); Eosinophils % 4.3 % (0.00-10.9); Hematocrit 28.3 VOL% (35.7-47.0); Immature Granulocytes % 0.3 %; Immature Granulocytes Absolute 0.03 #; Lymphocytes # 2.6 10*3/uL (1.4-4.0); Lymphocytes % 25.3 % (21.3-54.2); Mean Corpuscular HGB Conc 31.8 GM/DL (32-36); Mean Corpuscular Volume 79.5 FL (87-102); Mean Platelet Volume 10.8 FL (9.6-12.0); Monocytes # 1.5 10*3/uL (0.11-0.8); Monocytes % 14.6 % (1.7-12.7); Neutrophils % 55.1 % (38.7-73.9); Platelet Count 320 T/CUMM (130-400); Red Blood Count 3.56 MC/CUMM (3.8-5.5); White Blood Count 10.1 T/CUMM (4-12)
[2021-10-30 07:14] LABS: Alanine Aminotransferase 13 U/L (13-56); Albumin 2.5 G/DL (3.4-5.0); Alkaline Phosphatase 68 U/L (45-117); Aspartate Amino Transferase 14 U/L (0-37); Bilirubin,Total < 0.39 MG/DL (0.20-1.00); Blood Urea Nitrogen 32 MG/DL (7-18); Calcium 9.1 MG/DL (8.5-10.1); Carbon Dioxide 29 MMOL/L (21-32); Chloride 100 MMOL/L (98-107); Estimated Glom Filtration Rate 12 ML/MIN; Glucose 91 MG/DL (74-106); Osmolality,Calculated 274.2 MOS/KG (273-304); Potassium 4.4 MMOL/L (3.5-5.1); Sodium 134 MMOL/L (136-145); Total Protein 7.5 G/DL (6.4-8.2)
[2021-10-30] MEDS: FERROUS SULFATE 325 MG TABLET PO SCH ×2 (10:35→20:53)
[2021-10-30] MEDS: levETIRAcetam 500 MG TABLET PO SCH ×2 (10:35→20:53)
[2021-10-30] MEDS: LACTULOSE 20 GM/30 ML UDCUP PO SCH ×4 (10:35→20:53)
[2021-10-30] MEDS: PANTOPRAZOLE 40 MG TABLET PO SCH (10:35)
[2021-10-30] MEDS: SEVELAMER CARBONATE 800 MG TABLET PO SCH ×4 (10:36→19:07)
[2021-10-30] MEDS: amLODIPine 10 MG TABLET PO SCH (10:36)
[2021-10-30] MEDS ORDERED: HEPARIN 10,000 UNIT/10 ML VIAL IV SCH (15:15)
[2021-10-30] MEDS: CETIRIZINE 10 MG TABLET PO SCH (20:52)
[2021-10-31 05:49] LABS: Basophils % 0.4 % (0.0-0.8); Eosinophils # 0.6 10*3/uL (0.0-0.87); Eosinophils % 5.6 % (0.00-10.9); Hematocrit 26.8 VOL% (35.7-47.0); Hemoglobin 8.2 GM/DL (12.0-16.0); Immature Granulocytes % 0.6 %; Immature Granulocytes Absolute 0.06 #; Lymphocytes # 4.3 10*3/uL (1.4-4.0); Lymphocytes % 40.6 % (21.3-54.2); Mean Corpuscular HGB Conc 30.6 GM/DL (32-36); Mean Corpuscular Volume 81.2 FL (87-102); Monocytes # 1.6 10*3/uL (0.11-0.8); Monocytes % 15.3 % (1.7-12.7); Neutrophils % 37.5 % (38.7-73.9); Platelet Count 269 T/CUMM (130-400); Red Cell Distribution Width 13.9 % (9.3-17.3); White Blood Count 10.5 T/CUMM (4-12)
[2021-10-31 06:14] LABS: Eosinophils 3 % (0-10); Hypochromia 1+; Lymphocytes 35 % (20-55); Ovalocytes Few; Total Cells Counted 100
[2021-10-31 06:15] LABS: Microcytosis 1+; Polychromasia Slight
[2021-10-31 06:26] LABS: Alanine Aminotransferase 13 U/L (13-56); Albumin 2.3 G/DL (3.4-5.0); Alkaline Phosphatase 65 U/L (45-117); Aspartate Amino Transferase 13 U/L (0-37); Bilirubin,Total < 0.39 MG/DL (0.20-1.00); Blood Urea Nitrogen 22 MG/DL (7-18); Calcium 9.1 MG/DL (8.5-10.1); Carbon Dioxide 27 MMOL/L (21-32); Chloride 102 MMOL/L (98-107); Estimated Glom Filtration Rate 18 ML/MIN; Glucose 79 MG/DL (74-106); Osmolality,Calculated 269.2 MOS/KG (273-304); Potassium 4.1 MMOL/L (3.5-5.1); Sodium 134 MMOL/L (136-145); Total Protein 7.2 G/DL (6.4-8.2)
[2021-10-31] MEDS: FERROUS SULFATE 325 MG TABLET PO SCH (08:20)
[2021-10-31] MEDS: PANTOPRAZOLE 40 MG TABLET PO SCH (08:20)
[2021-10-31] MEDS: SEVELAMER CARBONATE 800 MG TABLET PO SCH ×3 (08:20→17:13)
[2021-10-31] MEDS: amLODIPine 10 MG TABLET PO SCH (08:20)
[2021-10-31] MEDS: levETIRAcetam 500 MG TABLET PO SCH (08:20)
[2021-10-31] MEDS: ACETAMINOPHEN 325 MG TABLET PO PRN (08:21)
[2021-10-31] MEDS: LACTULOSE 20 GM/30 ML UDCUP PO SCH ×3 (08:21→15:06)
[2021-10-31 15:33] VITALS: BP 126/71
== END 2021-10-31 18:50 | disposition swing bed (61) ==
LOC: N.ED 13:45 → N.EDINP 13:45 → SUATTDRO 17:52 → N.3E 19:08
PROVIDERS: ADMIT Internal Medicine; ATTEND Internal Medicine

== ENCOUNTER 2021-11-08 14:45 | Inpatient (IN) ==
[2021-11-08] MEDS ORDERED: ALBUTEROL NEB SOLN 5 MG/ML 20 ML/BOTTLE CONT NEB SCH (15:00)
[2021-11-08] MEDS ORDERED: methylPREDNISolone SOD SUC 125 MG/2 ML VIAL IV STA (15:00)
[2021-11-08 15:38] LABS: Basophils # 0.1 10*3/uL (0.0-0.2); Basophils % 0.3 % (0.0-0.8); Eosinophils # 0.5 10*3/uL (0.0-0.87); Eosinophils % 3.2 % (0.00-10.9); Hematocrit 28.1 VOL% (35.7-47.0); Hemoglobin 8.9 GM/DL (12.0-16.0); Immature Granulocytes % 0.9 %; Immature Granulocytes Absolute 0.14 #; Lymphocytes # 2.5 10*3/uL (1.4-4.0); Lymphocytes % 16.2 % (21.3-54.2); Mean Corpuscular HGB Conc 31.7 GM/DL (32-36); Mean Corpuscular Volume 77.4 FL (87-102); Mean Platelet Volume 9.6 FL (9.6-12.0); Monocytes # 1.4 10*3/uL (0.11-0.8); Monocytes % 9.1 % (1.7-12.7); Neutrophils % 70.3 % (38.7-73.9); Platelet Count 378 T/CUMM (130-400); Red Blood Count 3.63 MC/CUMM (3.8-5.5); Red Cell Distribution Width 14.2 % (9.3-17.3); White Blood Count 15.6 T/CUMM (4-12)
[2021-11-08 15:53] LABS: Arterial Base Excess iSTAT 7 MMOL/L (-2.5-2.5); Arterial Bicarbonate iSTAT 33.2 MMOL/L (20-26); Arterial O2 Saturation iSTAT 70 % (95-100); Arterial PCO2 iSTAT 56 MM HG (35-48); Arterial PO2 iSTAT 38 MM HG (80-95); Arterial Total CO2 iSTAT 35 MMO/L (23-27); Arterial pH iSTAT 7.383 (7.35-7.45)
[2021-11-08 15:56] LABS: Alanine Aminotransferase 13 U/L (13-56); Albumin 2.5 G/DL (3.4-5.0); Alkaline Phosphatase 90 U/L (45-117); Aspartate Amino Transferase 18 U/L (0-37); Bilirubin,Total < 0.39 MG/DL (0.20-1.00); Blood Urea Nitrogen 18 MG/DL (7-18); Calcium 9.3 MG/DL (8.5-10.1); Carbon Dioxide 30 MMOL/L (21-32); Chloride 95 MMOL/L (98-107); Glucose 88 MG/DL (74-106); Osmolality,Calculated 264.5 MOS/KG (273-304); Potassium 3.5 MMOL/L (3.5-5.1); Sodium 132 MMOL/L (136-145); Total Protein 8.8 G/DL (6.4-8.2)
[2021-11-08] MEDS ORDERED: DILTIAZEM 25 MG/5 ML VIAL IV STA ×2 (16:08→20:39)
[2021-11-08] MEDS ORDERED: LACTATED RINGERS 500 ML IV ONE (16:21)
[2021-11-08] MEDS ORDERED: DILTIAZEM INJ 100 MG in SODIUM CHLORIDE 0.9% 100 ML IV SCH (16:30)
[2021-11-08] MEDS: AMIODARONE INJ 450 MG in DEXTROSE 5% 241 ML IV SCH (16:41)
[2021-11-08] MEDS ORDERED: MIDAZOLAM 2 MG/2 ML VIAL ONE (16:50)
[2021-11-08] MEDS ORDERED: ACETAMINOPHEN 500 MG TABLET PO STA (16:58)
[2021-11-08] MEDS ORDERED: DILTIAZEM 25 MG/5 ML VIAL IV ONE (20:40)
[2021-11-08] MEDS ORDERED: ONDANSETRON 4 MG/2 ML VIAL IV PRN (20:50)
[2021-11-08] MEDS ORDERED: DEXTROSE 10% 250 ML BAG IV PRN (20:50)
[2021-11-08] MEDS ORDERED: GLUCAGON 1 MG VIAL IM PRN (20:50)
[2021-11-09] MEDS: DOXYCYCLINE HYCLATE INJ 100 MG in SODIUM CHLORIDE 0.9% 100 ML IV SCH ×2 (00:37→14:39)
[2021-11-09] MEDS: IPRATROPIUM 500 MCG/2.5 ML NEB RESP TX SCH ×4 (00:40→19:53)
[2021-11-09] MEDS: LEVALBUTEROL 1.25 MG/3 ML NEB RESP TX SCH ×4 (00:40→19:53)
[2021-11-09 03:58] LABS: Basophils % 0.2 % (0.0-0.8); Hematocrit 24.9 VOL% (35.7-47.0); Hemoglobin 7.9 GM/DL (12.0-16.0); Immature Granulocytes % 0.7 %; Immature Granulocytes Absolute 0.13 #; Lymphocytes # 1.5 10*3/uL (1.4-4.0); Lymphocytes % 8.2 % (21.3-54.2); Mean Corpuscular HGB Conc 31.7 GM/DL (32-36); Mean Corpuscular Volume 77.3 FL (87-102); Mean Platelet Volume 10.2 FL (9.6-12.0); Monocytes # 0.6 10*3/uL (0.11-0.8); Monocytes % 3.3 % (1.7-12.7); Neutrophils % 87.6 % (38.7-73.9); Platelet Count 356 T/CUMM (130-400); Red Blood Count 3.22 MC/CUMM (3.8-5.5); Red Cell Distribution Width 14.3 % (9.3-17.3); White Blood Count 18.7 T/CUMM (4-12)
[2021-11-09] MEDS: methylPREDNISolone SOD SUC 125 MG/2 ML VIAL IV SCH ×2 (05:45→17:25)
[2021-11-09] MEDS ORDERED: HEPARIN 5,000 UNIT/1 ML VIAL SUBCUT SCH (06:00)
[2021-11-09 06:36] LABS: Alanine Aminotransferase 11 U/L (13-56); Albumin 2.4 G/DL (3.4-5.0); Alkaline Phosphatase 84 U/L (45-117); Aspartate Amino Transferase 21 U/L (0-37); Bilirubin,Total < 0.39 MG/DL (0.20-1.00); Blood Urea Nitrogen 25 MG/DL (7-18); Calcium 8.8 MG/DL (8.5-10.1); Carbon Dioxide 29 MMOL/L (21-32); Chloride 96 MMOL/L (98-107); Glucose 199 MG/DL (74-106); Osmolality,Calculated 277.2 MOS/KG (273-304); Potassium 4.1 MMOL/L (3.5-5.1); Sodium 134 MMOL/L (136-145); Total Protein 8.3 G/DL (6.4-8.2)
[2021-11-09] MEDS: MORPHINE 2 MG/1 ML SYRINGE IV PRN ×3 (07:32→19:49)
[2021-11-09] MEDS: ACETAMINOPHEN 325 MG TABLET PO PRN (12:50)
[2021-11-09] MEDS: PANTOPRAZOLE 40 MG TABLET PO SCH (12:51)
[2021-11-09] MEDS: AMIODARONE INJ 450 MG in DEXTROSE 5% 241 ML IV SCH (12:59)
[2021-11-09] MEDS: APIXABAN 2.5 MG TABLET PO SCH (20:34)
[2021-11-09] MEDS: AMIODARONE 200 MG TABLET PO SCH (20:34)
[2021-11-10] MEDS: IPRATROPIUM 500 MCG/2.5 ML NEB RESP TX SCH ×4 (00:26→19:19)
[2021-11-10] MEDS: LEVALBUTEROL 1.25 MG/3 ML NEB RESP TX SCH ×4 (00:26→19:19)
[2021-11-10 05:28] LABS: Basophils # 0.1 10*3/uL (0.0-0.2); Basophils % 0.2 % (0.0-0.8); Hematocrit 27.2 VOL% (35.7-47.0); Hemoglobin 8.8 GM/DL (12.0-16.0); Immature Granulocytes % 2.3 %; Lymphocytes # 1.9 10*3/uL (1.4-4.0); Lymphocytes % 6.4 % (21.3-54.2); Mean Corpuscular HGB Conc 32.4 GM/DL (32-36); Mean Corpuscular Volume 75.8 FL (87-102); Mean Platelet Volume 10.4 FL (9.6-12.0); Monocytes # 1.3 10*3/uL (0.11-0.8); Monocytes % 4.2 % (1.7-12.7); Neutrophils % 86.9 % (38.7-73.9); Platelet Count 432 T/CUMM (130-400); Red Blood Count 3.59 MC/CUMM (3.8-5.5); Red Cell Distribution Width 14.1 % (9.3-17.3); White Blood Count 30.4 T/CUMM (4-12)
[2021-11-10] MEDS: ACETAMINOPHEN 325 MG TABLET PO PRN ×2 (05:28→17:59)
[2021-11-10] MEDS: methylPREDNISolone SOD SUC 125 MG/2 ML VIAL IV SCH (05:29)
[2021-11-10 05:42] LABS: Calcium 9.3 MG/DL (8.5-10.1); Osmolality,Calculated 276.5 MOS/KG (273-304); Potassium 4.4 MMOL/L (3.5-5.1)
[2021-11-10 05:50] LABS: Band Neutrophils 1 % (0-10); Lymphocytes 3 % (20-55); Total Cells Counted 100
[2021-11-10 05:51] LABS: Hypochromia 1+; Microcytosis 1+; Ovalocytes Slight; Target Cells Slight
[2021-11-10 05:52] LABS: Polychromasia Slight
[2021-11-10] MEDS: DOXYCYCLINE HYCLATE INJ 100 MG in SODIUM CHLORIDE 0.9% 100 ML IV SCH (05:56)
[2021-11-10] MEDS: PANTOPRAZOLE 40 MG TABLET PO SCH (09:01)
[2021-11-10] MEDS: AMIODARONE 200 MG TABLET PO SCH ×2 (09:01→20:55)
[2021-11-10] MEDS: APIXABAN 2.5 MG TABLET PO SCH ×2 (09:01→20:55)
[2021-11-10 12:10] LABS: Basophils # 0.1 10*3/uL (0.0-0.2); Basophils % 0.2 % (0.0-0.8); Hematocrit 25.9 VOL% (35.7-47.0); Hemoglobin 8.5 GM/DL (12.0-16.0); Immature Granulocytes % 2.2 %; Immature Granulocytes Absolute 0.67 #; Lymphocytes # 1.9 10*3/uL (1.4-4.0); Lymphocytes % 6.3 % (21.3-54.2); Mean Corpuscular HGB Conc 32.8 GM/DL (32-36); Mean Corpuscular Volume 75.1 FL (87-102); Mean Platelet Volume 9.9 FL (9.6-12.0); Monocytes # 1.2 10*3/uL (0.11-0.8); Neutrophils % 87.3 % (38.7-73.9); Platelet Count 418 T/CUMM (130-400); Red Blood Count 3.45 MC/CUMM (3.8-5.5); Red Cell Distribution Width 14.2 % (9.3-17.3); White Blood Count 29.9 T/CUMM (4-12)
[2021-11-10] MEDS ORDERED: EPOETIN ALFA-EPBX 4,000 UNIT/ML VIAL IV PRN (12:37)
[2021-11-10 12:48] LABS: Lymphocytes 6 % (20-55); Total Cells Counted 100
[2021-11-10 12:49] LABS: Anisocytosis 1+; Hypochromia 1+; Ovalocytes Slight; Platelet Estimate Adequate; Polychromasia Slight; Schistocytes Slight; Target Cells Slight
[2021-11-10] MEDS ORDERED: BUTALBITAL/ACETAMIN/CAFFEINE 50-325-40 MG TABLET PO ONE (13:56)
[2021-11-10] MEDS: MORPHINE 2 MG/1 ML SYRINGE IV PRN (20:56)
[2021-11-11] MEDS: LEVALBUTEROL 1.25 MG/3 ML NEB RESP TX SCH ×4 (00:13→20:07)
[2021-11-11] MEDS: IPRATROPIUM 500 MCG/2.5 ML NEB RESP TX SCH ×4 (00:13→20:07)
[2021-11-11 05:18] LABS: Basophils # 0.1 10*3/uL (0.0-0.2); Basophils % 0.2 % (0.0-0.8); Hematocrit 26.5 VOL% (35.7-47.0); Hemoglobin 8.9 GM/DL (12.0-16.0); Immature Granulocytes % 1.5 %; Immature Granulocytes Absolute 0.39 #; Lymphocytes # 2.8 10*3/uL (1.4-4.0); Lymphocytes % 10.5 % (21.3-54.2); Mean Corpuscular HGB Conc 33.6 GM/DL (32-36); Mean Corpuscular Volume 74.2 FL (87-102); Mean Platelet Volume 10.3 FL (9.6-12.0); Monocytes # 1.9 10*3/uL (0.11-0.8); Neutrophils % 80.8 % (38.7-73.9); Platelet Count 424 T/CUMM (130-400); Red Blood Count 3.57 MC/CUMM (3.8-5.5); Red Cell Distribution Width 14.2 % (9.3-17.3); White Blood Count 26.6 T/CUMM (4-12)
[2021-11-11 05:34] LABS: Osmolality,Calculated 279.8 MOS/KG (273-304); Potassium 4.7 MMOL/L (3.5-5.1)
[2021-11-11 05:48] LABS: Hypochromia 1+; Lymphocytes 8 % (20-55); Total Cells Counted 100
[2021-11-11 05:49] LABS: Anisocytosis 1+; Ovalocytes Slight; Platelet Estimate Increased; Polychromasia Slight; Target Cells Slight
[2021-11-11 05:50] LABS: Microcytosis 1+
[2021-11-11] MEDS ORDERED: HEPARIN 10,000 UNIT/10 ML VIAL IV PRN (10:20)
[2021-11-11] MEDS: PANTOPRAZOLE 40 MG TABLET PO SCH (14:10)
[2021-11-11] MEDS: AMIODARONE 200 MG TABLET PO SCH ×2 (14:10→20:42)
[2021-11-11] MEDS: APIXABAN 2.5 MG TABLET PO SCH ×2 (14:10→20:42)
[2021-11-11] MEDS: ACETAMINOPHEN 325 MG TABLET PO PRN (21:31)
[2021-11-12] MEDS: IPRATROPIUM 500 MCG/2.5 ML NEB RESP TX SCH ×4 (00:51→19:30)
[2021-11-12] MEDS: LEVALBUTEROL 1.25 MG/3 ML NEB RESP TX SCH ×4 (00:51→19:30)
[2021-11-12] MEDS: PANTOPRAZOLE 40 MG TABLET PO SCH (09:55)
[2021-11-12] MEDS: APIXABAN 2.5 MG TABLET PO SCH ×2 (09:55→21:25)
[2021-11-12] MEDS: AMIODARONE 200 MG TABLET PO SCH ×2 (09:55→21:25)
[2021-11-12 10:29] LABS: Basophils # 0.1 10*3/uL (0.0-0.2); Basophils % 0.3 % (0.0-0.8); Eosinophils # 0.3 10*3/uL (0.0-0.87); Eosinophils % 1.9 % (0.00-10.9); Hematocrit 27.6 VOL% (35.7-47.0); Hemoglobin 8.8 GM/DL (12.0-16.0); Immature Granulocytes % 1.4 %; Immature Granulocytes Absolute 0.22 #; Lymphocytes # 5.5 10*3/uL (1.4-4.0); Lymphocytes % 34.2 % (21.3-54.2); Mean Corpuscular HGB Conc 31.9 GM/DL (32-36); Mean Corpuscular Volume 76.5 FL (87-102); Mean Platelet Volume 10.2 FL (9.6-12.0); Monocytes # 1.3 10*3/uL (0.11-0.8); Monocytes % 7.8 % (1.7-12.7); Neutrophils % 54.4 % (38.7-73.9); Platelet Count 466 T/CUMM (130-400); Red Blood Count 3.61 MC/CUMM (3.8-5.5); Red Cell Distribution Width 14.7 % (9.3-17.3)
[2021-11-12 10:43] LABS: Osmolality,Calculated 286.5 MOS/KG (273-304); Potassium 4.1 MMOL/L (3.5-5.1)
[2021-11-12 10:47] LABS: Eosinophils 3 % (0-10); Lymphocytes 32 % (20-55); Platelet Estimate Adequate; Total Cells Counted 100
[2021-11-12 10:48] LABS: Hypochromia Slight; Microcytosis Slight
[2021-11-12] MEDS: MORPHINE 2 MG/1 ML SYRINGE IV PRN ×2 (15:30→21:27)
[2021-11-12] MEDS ORDERED: VANCOMYCIN INJ 1,000 MG in SODIUM CHLORIDE 0.9% 250 ML IV SCH (15:30)
[2021-11-12] MEDS ORDERED: VANCOMYCIN INJ 500 MG in SODIUM CHLORIDE 0.9% 100 ML IV PRN (15:40)
[2021-11-12] MEDS ORDERED: VANCOMYCIN INJ 1,750 MG in SODIUM CHLORIDE 0.9% 500 ML IV ONE (18:00)
[2021-11-13] MEDS: LEVALBUTEROL 1.25 MG/3 ML NEB RESP TX SCH ×2 (01:07→07:10)
[2021-11-13] MEDS: IPRATROPIUM 500 MCG/2.5 ML NEB RESP TX SCH ×2 (01:07→07:10)
[2021-11-13 08:47] LABS: Basophils # 0.1 10*3/uL (0.0-0.2); Basophils % 0.4 % (0.0-0.8); Eosinophils # 0.5 10*3/uL (0.0-0.87); Eosinophils % 3.9 % (0.00-10.9); Hematocrit 26.7 VOL% (35.7-47.0); Hemoglobin 8.4 GM/DL (12.0-16.0); Immature Granulocytes % 1.5 %; Immature Granulocytes Absolute 0.21 #; Lymphocytes # 4.6 10*3/uL (1.4-4.0); Lymphocytes % 33.2 % (21.3-54.2); Mean Corpuscular HGB Conc 31.5 GM/DL (32-36); Mean Corpuscular Volume 76.7 FL (87-102); Monocytes % 7.5 % (1.7-12.7); Neutrophils % 53.5 % (38.7-73.9); Platelet Count 477 T/CUMM (130-400); Red Blood Count 3.48 MC/CUMM (3.8-5.5); Red Cell Distribution Width 14.9 % (9.3-17.3); White Blood Count 13.7 T/CUMM (4-12)
[2021-11-13 09:12] LABS: Calcium 8.7 MG/DL (8.5-10.1); Osmolality,Calculated 290.5 MOS/KG (273-304); Potassium 4.3 MMOL/L (3.5-5.1)
[2021-11-13 09:18] LABS: Eosinophils 4 % (0-10); Hypochromia Slight; Lymphocytes 43 % (20-55); Platelet Estimate Adequate; Total Cells Counted 100
[2021-11-13 09:19] LABS: Microcytosis Slight
[2021-11-13] MEDS: APIXABAN 2.5 MG TABLET PO SCH (12:47)
[2021-11-13] MEDS: AMIODARONE 200 MG TABLET PO SCH (12:48)
[2021-11-13] MEDS: PANTOPRAZOLE 40 MG TABLET PO SCH (12:48)
[2021-11-13 12:52] VITALS: BP 146/87
[2021-11-13] MEDS ORDERED: VANCOMYCIN INJ 500 MG in SODIUM CHLORIDE 0.9% 100 ML IV ONE (17:00)
== END 2021-11-13 14:08 | DRG 140 ==
LOC: EDUNIT# → EDBD → N.ED 14:45 → SUATTDRO 20:50 → N.EDINP 20:50 → N.TELEN 11-09 07:50
PROVIDERS: ADMIT Internal Medicine; ATTEND Internal Medicine

== ENCOUNTER 2022-04-17 16:07 | Inpatient (IN) ==
[2022-04-17] MEDS ORDERED: MORPHINE 2 MG/1 ML SYRINGE ONE (16:53)
[2022-04-17] MEDS ORDERED: MORPHINE 2 MG/1 ML SYRINGE IV STA ×2 (17:06→19:01)
[2022-04-17 18:00] LABS: Basophils % 0.3 % (0.0-0.8); Eosinophils # 0.5 10*3/uL (0.0-0.87); Eosinophils % 3.6 % (0.00-10.9); Hematocrit 28.9 VOL% (35.7-47.0); Hemoglobin 8.9 GM/DL (12.0-16.0); Immature Granulocytes % 0.4 %; Immature Granulocytes Absolute 0.06 #; Lymphocytes # 3.8 10*3/uL (1.4-4.0); Lymphocytes % 28.2 % (21.3-54.2); Mean Corpuscular HGB Conc 30.8 GM/DL (32-36); Mean Corpuscular Volume 75.9 FL (87-102); Monocytes # 1.4 10*3/uL (0.11-0.8); Monocytes % 10.5 % (1.7-12.7); Platelet Count 201 T/CUMM (130-400); Red Blood Count 3.81 MC/CUMM (3.8-5.5); White Blood Count 13.4 T/CUMM (4-12)
[2022-04-17 18:18] LABS: Alanine Aminotransferase < 9 U/L (13-56); Albumin 2.7 G/DL (3.4-5.0); Alkaline Phosphatase 116 U/L (45-117); Aspartate Amino Transferase 14 U/L (0-37); Bilirubin,Total < 0.39 MG/DL (0.20-1.00); Blood Urea Nitrogen 18 MG/DL (7-18); Calcium 7.7 MG/DL (8.5-10.1); Carbon Dioxide 31 MMOL/L (21-32); Chloride 103 MMOL/L (98-107); Glucose 87 MG/DL (74-106); Osmolality,Calculated 279.4 MOS/KG (273-304); Potassium 3.4 MMOL/L (3.5-5.1); Sodium 140 MMOL/L (136-145); Total Protein 6.9 G/DL (6.4-8.2)
[2022-04-17] MEDS ORDERED: ONDANSETRON 4 MG/2 ML VIAL ONE (19:00)
[2022-04-17] MEDS ORDERED: ONDANSETRON 4 MG/2 ML VIAL IV STA (19:01)
[2022-04-17] MEDS ORDERED: GLUCAGON 1 MG VIAL IM PRN (19:19)
[2022-04-17] MEDS ORDERED: hydrALAZINE 20 MG/1 ML VIAL IV PRN (19:19)
[2022-04-17] MEDS ORDERED: ONDANSETRON 4 MG/2 ML VIAL IV PRN (19:19)
[2022-04-17] MEDS ORDERED: DOCUSATE SODIUM 100 MG CAPSULE PO PRN (19:19)
[2022-04-17] MEDS ORDERED: DEXTROSE 10% 250 ML BAG IV PRN (19:28)
[2022-04-17] MEDS: APIXABAN 2.5 MG TABLET PO SCH (23:30)
[2022-04-17] MEDS: PIPERACILLIN/TAZOBACTAM 3.375 MG in SODIUM CHLORIDE 0.9% 100 ML IV SCH (23:30)
[2022-04-17] MEDS: levETIRAcetam 500 MG TABLET PO SCH (23:30)
[2022-04-17] MEDS: LACTULOSE 20 GM/30 ML UDCUP PO SCH (23:30)
[2022-04-17] MEDS: CETIRIZINE 10 MG TABLET PO SCH (23:30)
[2022-04-18] MEDS: INSULIN LISPRO 100 UNIT/ML SUBCUT SCH ×5 (01:24→21:13)
[2022-04-18 05:46] LABS: Basophils % 0.3 % (0.0-0.8); Eosinophils # 0.7 10*3/uL (0.0-0.87); Eosinophils % 5.2 % (0.00-10.9); Hemoglobin 9.8 GM/DL (12.0-16.0); Immature Granulocytes % 0.3 %; Immature Granulocytes Absolute 0.04 #; Lymphocytes % 31.5 % (21.3-54.2); Mean Corpuscular HGB Conc 29.7 GM/DL (32-36); Mean Corpuscular Volume 78.6 FL (87-102); Mean Platelet Volume 9.4 FL (9.6-12.0); Monocytes # 1.4 10*3/uL (0.11-0.8); Neutrophils % 51.7 % (38.7-73.9); Platelet Count 197 T/CUMM (130-400); Red Cell Distribution Width 20.4 % (9.3-17.3); White Blood Count 12.6 T/CUMM (4-12)
[2022-04-18 05:56] LABS: Calcium 8.3 MG/DL (8.5-10.1); Osmolality,Calculated 282.4 MOS/KG (273-304); Potassium 3.4 MMOL/L (3.5-5.1)
[2022-04-18 06:51] LABS: Anisocytosis 2+; Hypochromia Slight; Ovalocytes Few; Platelet Estimate Normal; Poikilocytosis 1+; Tear Drop Cells Few
[2022-04-18] MEDS: levETIRAcetam 500 MG TABLET PO SCH ×2 (08:48→20:23)
[2022-04-18] MEDS: LACTULOSE 20 GM/30 ML UDCUP PO SCH ×2 (08:49→21:12)
[2022-04-18] MEDS: APIXABAN 2.5 MG TABLET PO SCH ×2 (08:49→20:23)
[2022-04-18] MEDS: PANTOPRAZOLE 40 MG TABLET PO SCH (08:49)
[2022-04-18] MEDS: AMIODARONE 200 MG TABLET PO SCH (08:49)
[2022-04-18] MEDS: amLODIPine 10 MG TABLET PO SCH (08:49)
[2022-04-18] MEDS: METOPROLOL TARTRATE 25 MG TABLET PO SCH (08:49)
[2022-04-18] MEDS ORDERED: HEPARIN 10,000 UNIT/10 ML VIAL IV SCH (09:00)
[2022-04-18] MEDS: SEVELAMER CARBONATE 800 MG TABLET PO SCH ×2 (11:07→17:05)
[2022-04-18] MEDS: PIPERACILLIN/TAZOBACTAM 3,375 MG in SODIUM CHLORIDE 0.9% 100 ML IV SCH (11:14)
[2022-04-18] MEDS: PIPERACILLIN/TAZOBACTAM 3.375 MG in SODIUM CHLORIDE 0.9% 100 ML IV SCH (13:31)
[2022-04-18] MEDS ORDERED: VANCOMYCIN INJ 2,000 MG in SODIUM CHLORIDE 0.9% 500 ML IV ONE (17:00)
[2022-04-18] MEDS: HEPARIN 10,000 UNIT/10 ML VIAL IV PRN (20:15)
[2022-04-18] MEDS: CETIRIZINE 10 MG TABLET PO SCH (20:23)
[2022-04-18] MEDS: diphenhydrAMINE CAP 50 MG CAPSULE PO PRN (22:33)
[2022-04-19] MEDS: HEPARIN 10,000 UNIT/10 ML VIAL IV PRN ×4 (01:18→22:03)
[2022-04-19] MEDS: PIPERACILLIN/TAZOBACTAM 3,375 MG in SODIUM CHLORIDE 0.9% 100 ML IV SCH ×3 (01:20→23:30)
[2022-04-19] MEDS: diphenhydrAMINE CAP 50 MG CAPSULE PO PRN (04:28)
[2022-04-19 05:40] LABS: Basophils % 0.3 % (0.0-0.8); Eosinophils % 7.8 % (0.00-10.9); Hematocrit 30.1 VOL% (35.7-47.0); Hemoglobin 8.9 GM/DL (12.0-16.0); Lymphocytes # 3.7 10*3/uL (1.4-4.0); Lymphocytes % 29.4 % (21.3-54.2); Mean Corpuscular HGB Conc 29.6 GM/DL (32-36); Mean Corpuscular Volume 78.8 FL (87-102); Monocytes # 1.8 10*3/uL (0.11-0.8); Monocytes % 14.1 % (1.7-12.7); Platelet Count 202 T/CUMM (130-400); Red Blood Count 3.82 MC/CUMM (3.8-5.5); Red Cell Distribution Width 20.7 % (9.3-17.3)
[2022-04-19 05:50] LABS: White Blood Count 12.6 T/CUMM (4-12)
[2022-04-19 06:01] LABS: Calcium 7.9 MG/DL (8.5-10.1); Osmolality,Calculated 278.4 MOS/KG (273-304); Potassium 3.9 MMOL/L (3.5-5.1)
[2022-04-19 06:39] LABS: Anisocytosis 2+; Eosinophils 6 % (0-10); Lymphocytes 38 % (20-55); Platelet Estimate Normal; Poikilocytosis 1+
[2022-04-19] MEDS: INSULIN LISPRO 100 UNIT/ML SUBCUT SCH ×4 (07:39→22:04)
[2022-04-19] MEDS: levETIRAcetam 500 MG TABLET PO SCH ×2 (09:38→21:56)
[2022-04-19] MEDS: PANTOPRAZOLE 40 MG TABLET PO SCH (09:38)
[2022-04-19] MEDS: APIXABAN 2.5 MG TABLET PO SCH ×2 (09:38→21:56)
[2022-04-19] MEDS: LACTULOSE 20 GM/30 ML UDCUP PO SCH ×2 (09:39→21:59)
[2022-04-19] MEDS: AMIODARONE 200 MG TABLET PO SCH (09:39)
[2022-04-19] MEDS: amLODIPine 10 MG TABLET PO SCH (09:39)
[2022-04-19] MEDS: METOPROLOL TARTRATE 25 MG TABLET PO SCH (09:39)
[2022-04-19] MEDS: SEVELAMER CARBONATE 800 MG TABLET PO SCH ×2 (11:40→14:53)
[2022-04-19] MEDS: HYDROmorphone 1 MG/1 ML SYRINGE IV PRN ×2 (14:52→22:03)
[2022-04-19] MEDS: CETIRIZINE 10 MG TABLET PO SCH (21:56)
[2022-04-20] MEDS: HEPARIN 10,000 UNIT/10 ML VIAL IV PRN (03:15)
[2022-04-20 06:20] LABS: Basophils # 0.1 10*3/uL (0.0-0.2); Basophils % 0.3 % (0.0-0.8); Eosinophils # 0.4 10*3/uL (0.0-0.87); Eosinophils % 2.4 % (0.00-10.9); Hemoglobin 8.7 GM/DL (12.0-16.0); Lymphocytes # 3.8 10*3/uL (1.4-4.0); Lymphocytes % 20.7 % (21.3-54.2); Mean Corpuscular Volume 78.4 FL (87-102); Mean Platelet Volume 10.3 FL (9.6-12.0); Monocytes # 2.6 10*3/uL (0.11-0.8); Monocytes % 14.2 % (1.7-12.7); Platelet Count 207 T/CUMM (130-400); Red Cell Distribution Width 20.3 % (9.3-17.3); White Blood Count 18.3 T/CUMM (4-12)
[2022-04-20 06:39] LABS: Eosinophils 4 % (0-10); Hypochromia Slight; Lymphocytes 20 % (20-55); Microcytosis 1+; Ovalocytes Few; Polychromasia Slight
[2022-04-20 06:40] LABS: Platelet Estimate Normal
[2022-04-20] MEDS: INSULIN LISPRO 100 UNIT/ML SUBCUT SCH ×5 (08:25→20:44)
[2022-04-20] MEDS: AMIODARONE 200 MG TABLET PO SCH (08:33)
[2022-04-20] MEDS: LACTULOSE 20 GM/30 ML UDCUP PO SCH ×2 (08:33→20:43)
[2022-04-20] MEDS: APIXABAN 2.5 MG TABLET PO SCH ×2 (08:34→20:42)
[2022-04-20] MEDS: amLODIPine 10 MG TABLET PO SCH (08:34)
[2022-04-20] MEDS: levETIRAcetam 500 MG TABLET PO SCH ×2 (08:34→20:42)
[2022-04-20] MEDS: METOPROLOL TARTRATE 25 MG TABLET PO SCH (08:35)
[2022-04-20] MEDS: PANTOPRAZOLE 40 MG TABLET PO SCH (08:35)
[2022-04-20] MEDS: HYDROmorphone 1 MG/1 ML SYRINGE IV PRN ×3 (08:46→20:42)
[2022-04-20] MEDS ORDERED: SEVELAMER CARBONATE 800 MG TABLET PO SCH (09:00)
[2022-04-20] MEDS: diphenhydrAMINE CAP 50 MG CAPSULE PO PRN (11:53)
[2022-04-20] MEDS: PIPERACILLIN/TAZOBACTAM 3,375 MG in SODIUM CHLORIDE 0.9% 100 ML IV SCH (14:37)
[2022-04-20] MEDS: CETIRIZINE 10 MG TABLET PO SCH (20:42)
[2022-04-21] MEDS: HYDROmorphone 1 MG/1 ML SYRINGE IV PRN ×3 (03:13→17:25)
[2022-04-21] MEDS: PIPERACILLIN/TAZOBACTAM 3,375 MG in SODIUM CHLORIDE 0.9% 100 ML IV SCH ×2 (03:14→14:18)
[2022-04-21] MEDS ORDERED: fentaNYL 100 MCG/2 ML VIAL ONE (06:31)
[2022-04-21] MEDS ORDERED: BUPIVACAINE MPF 0.25% 10 ML VIAL ONE (06:32)
[2022-04-21] MEDS ORDERED: HEPARIN 5,000 UNIT/1 ML VIAL ONE (06:33)
[2022-04-21] MEDS ORDERED: LIDOCAINE MPF 1% /EPI 30 ML VIAL ONE (06:34)
[2022-04-21] MEDS ORDERED: FAMOTIDINE 20 MG/2 ML VIAL IV ONE (06:57)
[2022-04-21] MEDS ORDERED: SODIUM CHLORIDE 0.9% 250 ML IV SCH (07:00)
[2022-04-21] MEDS: INSULIN LISPRO 100 UNIT/ML SUBCUT SCH ×4 (07:14→21:31)
[2022-04-21] MEDS: METOPROLOL TARTRATE 25 MG TABLET PO SCH (08:04)
[2022-04-21] MEDS: amLODIPine 10 MG TABLET PO SCH (08:05)
[2022-04-21] MEDS: PANTOPRAZOLE 40 MG TABLET PO SCH (08:08)
[2022-04-21] MEDS: levETIRAcetam 500 MG TABLET PO SCH ×2 (08:08→21:31)
[2022-04-21] MEDS: LACTULOSE 20 GM/30 ML UDCUP PO SCH ×2 (08:08→21:31)
[2022-04-21] MEDS: AMIODARONE 200 MG TABLET PO SCH (08:08)
[2022-04-21] MEDS ORDERED: GLUCAGON 1 MG VIAL IM PRN (08:16)
[2022-04-21] MEDS ORDERED: DEXTROSE 50% 25 GM/50 ML VIAL IV PRN (08:16)
[2022-04-21] MEDS ORDERED: VANCOMYCIN INJ 500 MG in SODIUM CHLORIDE 0.9% 100 ML IV ONE ×2 (17:00→20:00)
[2022-04-21] MEDS ORDERED: VANCOMYCIN INJ 500 MG in SODIUM CHLORIDE 0.9% 100 ML IV PRN (17:00)
[2022-04-21] MEDS: diphenhydrAMINE CAP 50 MG CAPSULE PO PRN (18:31)
[2022-04-21] MEDS: CETIRIZINE 10 MG TABLET PO SCH (21:31)
[2022-04-22] MEDS: PIPERACILLIN/TAZOBACTAM 3,375 MG in SODIUM CHLORIDE 0.9% 100 ML IV SCH ×2 (04:43→14:00)
[2022-04-22] MEDS: HYDROmorphone 1 MG/1 ML SYRINGE IV PRN ×5 (04:43→20:39)
[2022-04-22] MEDS ORDERED: SEVOFLURANE 1 UNIT/15 MINUTE INH ONE (06:21)
[2022-04-22] MEDS ORDERED: PHENYLEPHRINE 1 MG/10 ML SYRINGE IV ONE ×2 (06:21→06:23)
[2022-04-22] MEDS ORDERED: fentaNYL 100 MCG/2 ML VIAL ONE (06:21)
[2022-04-22] MEDS ORDERED: propofoL 200 MG/20 ML VIAL IV ONE (06:21)
[2022-04-22] MEDS ORDERED: LIDOCAINE 2% 5 ML VIAL ONE (06:21)
[2022-04-22] MEDS ORDERED: ETOMIDATE 40 MG/20 ML VIAL IV ONE (06:21)
[2022-04-22] MEDS ORDERED: ePHEDrine 50 MG/ML VIAL ONE (06:22)
[2022-04-22] MEDS ORDERED: MIDAZOLAM 2 MG/2 ML VIAL ONE (06:22)
[2022-04-22] MEDS ORDERED: LIDOCAINE MPF 1% /EPI 30 ML VIAL ONE (06:35)
[2022-04-22] MEDS ORDERED: BUPIVACAINE MPF 0.25% 10 ML VIAL ONE (06:35)
[2022-04-22] MEDS ORDERED: HEPARIN 5,000 UNIT/1 ML VIAL ONE (06:35)
[2022-04-22 06:39] LABS: Basophils # 0.1 10*3/uL (0.0-0.2); Basophils % 0.3 % (0.0-0.8); Eosinophils # 0.9 10*3/uL (0.0-0.87); Eosinophils % 5.6 % (0.00-10.9); Hematocrit 30.6 VOL% (35.7-47.0); Hemoglobin 9.2 GM/DL (12.0-16.0); Immature Granulocytes % 0.4 %; Immature Granulocytes Absolute 0.06 #; Lymphocytes # 4.3 10*3/uL (1.4-4.0); Lymphocytes % 26.6 % (21.3-54.2); Mean Corpuscular HGB Conc 30.1 GM/DL (32-36); Mean Corpuscular Volume 78.3 FL (87-102); Mean Platelet Volume 9.4 FL (9.6-12.0); Monocytes # 2.7 10*3/uL (0.11-0.8); Monocytes % 17.1 % (1.7-12.7); Platelet Count 211 T/CUMM (130-400); Red Blood Count 3.91 MC/CUMM (3.8-5.5)
[2022-04-22] MEDS ORDERED: SODIUM CHLORIDE 0.9% 250 ML IV SCH (07:00)
[2022-04-22 07:12] LABS: Band Neutrophils 1 % (0-10); Eosinophils 6 % (0-10); Lymphocytes 31 % (20-55); Total Cells Counted 100
[2022-04-22 07:13] LABS: Burr Cells 1+
[2022-04-22] MEDS: INSULIN LISPRO 100 UNIT/ML SUBCUT SCH ×4 (07:14→20:38)
[2022-04-22 07:15] LABS: Ovalocytes Slight; Target Cells Slight
[2022-04-22 07:16] LABS: Hypochromia 1+; Microcytosis 1+
[2022-04-22 07:21] LABS: Platelet Estimate Normal
[2022-04-22] MEDS ORDERED: HYDROmorphone 1 MG/1 ML SYRINGE IV PRN (08:35)
[2022-04-22] MEDS ORDERED: ONDANSETRON 4 MG/2 ML VIAL IV PRN (08:35)
[2022-04-22] MEDS: amLODIPine 10 MG TABLET PO SCH (09:11)
[2022-04-22] MEDS: LACTULOSE 20 GM/30 ML UDCUP PO SCH ×2 (09:11→20:38)
[2022-04-22] MEDS: METOPROLOL TARTRATE 25 MG TABLET PO SCH (09:13)
[2022-04-22] MEDS: AMIODARONE 200 MG TABLET PO SCH (09:13)
[2022-04-22] MEDS: PANTOPRAZOLE 40 MG TABLET PO SCH (09:13)
[2022-04-22] MEDS: levETIRAcetam 500 MG TABLET PO SCH ×2 (09:13→20:37)
[2022-04-22] MEDS: diphenhydrAMINE CAP 50 MG CAPSULE PO PRN (17:46)
[2022-04-22] MEDS: CETIRIZINE 10 MG TABLET PO SCH (20:37)
[2022-04-22] MEDS: HEPARIN 10,000 UNIT/10 ML VIAL IV PRN (20:39)
[2022-04-23] MEDS: HYDROmorphone 1 MG/1 ML SYRINGE IV PRN ×5 (02:04→21:13)
[2022-04-23] MEDS: PIPERACILLIN/TAZOBACTAM 3,375 MG in SODIUM CHLORIDE 0.9% 100 ML IV SCH ×2 (02:06→14:15)
[2022-04-23 05:48] LABS: Basophils % 0.4 % (0.0-0.8); Eosinophils # 0.7 10*3/uL (0.0-0.87); Eosinophils % 6.8 % (0.00-10.9); Hematocrit 23.3 VOL% (35.7-47.0); Hemoglobin 7.1 GM/DL (12.0-16.0); Immature Granulocytes % 0.3 %; Immature Granulocytes Absolute 0.03 #; Lymphocytes # 3.1 10*3/uL (1.4-4.0); Lymphocytes % 31.2 % (21.3-54.2); Mean Corpuscular HGB Conc 30.5 GM/DL (32-36); Mean Corpuscular Volume 78.2 FL (87-102); Monocytes # 1.4 10*3/uL (0.11-0.8); Monocytes % 13.6 % (1.7-12.7); Neutrophils % 47.7 % (38.7-73.9); Platelet Count 223 T/CUMM (130-400); Red Blood Count 2.98 MC/CUMM (3.8-5.5); Red Cell Distribution Width 19.5 % (9.3-17.3)
[2022-04-23 06:01] LABS: Osmolality,Calculated 287.4 MOS/KG (273-304); Potassium 3.4 MMOL/L (3.5-5.1)
[2022-04-23] MEDS: AMIODARONE 200 MG TABLET PO SCH (08:29)
[2022-04-23] MEDS: PANTOPRAZOLE 40 MG TABLET PO SCH (08:29)
[2022-04-23] MEDS: levETIRAcetam 500 MG TABLET PO SCH ×3 (08:29→21:15)
[2022-04-23] MEDS: METOPROLOL TARTRATE 25 MG TABLET PO SCH (08:30)
[2022-04-23] MEDS: LACTULOSE 20 GM/30 ML UDCUP PO SCH ×2 (08:30→21:16)
[2022-04-23] MEDS: amLODIPine 10 MG TABLET PO SCH (08:30)
[2022-04-23] MEDS: INSULIN LISPRO 100 UNIT/ML SUBCUT SCH ×4 (10:01→21:18)
[2022-04-23] MEDS ORDERED: POTASSIUM CHLORIDE 20 MEQ TABLET PO ONE (11:00)
[2022-04-23] MEDS ORDERED: VANCOMYCIN INJ 500 MG in SODIUM CHLORIDE 0.9% 100 ML IV ONE (17:00)
[2022-04-23] MEDS: CETIRIZINE 10 MG TABLET PO SCH (21:16)
[2022-04-24] MEDS: HYDROmorphone 1 MG/1 ML SYRINGE IV PRN ×4 (00:07→13:49)
[2022-04-24] MEDS: PIPERACILLIN/TAZOBACTAM 3,375 MG in SODIUM CHLORIDE 0.9% 100 ML IV SCH ×2 (02:47→16:28)
[2022-04-24] MEDS: HEPARIN 10,000 UNIT/10 ML VIAL IV PRN ×2 (06:40→07:34)
[2022-04-24] MEDS: INSULIN LISPRO 100 UNIT/ML SUBCUT SCH ×4 (07:26→23:57)
[2022-04-24] MEDS: METOPROLOL TARTRATE 25 MG TABLET PO SCH (08:37)
[2022-04-24] MEDS: amLODIPine 10 MG TABLET PO SCH (08:37)
[2022-04-24] MEDS: AMIODARONE 200 MG TABLET PO SCH (08:38)
[2022-04-24] MEDS: levETIRAcetam 500 MG TABLET PO SCH ×2 (08:38→21:09)
[2022-04-24] MEDS: LACTULOSE 20 GM/30 ML UDCUP PO SCH ×2 (08:42→21:09)
[2022-04-24] MEDS: PANTOPRAZOLE 40 MG TABLET PO SCH (10:56)
[2022-04-24] MEDS ORDERED: cefTRIAXone 1,000 MG VIAL IM ONE (20:48)
[2022-04-24] MEDS ORDERED: HYDROmorphone 1 MG/1 ML SYRINGE IM PRN (20:50)
[2022-04-24] MEDS: diphenhydrAMINE CAP 50 MG CAPSULE PO PRN (21:09)
[2022-04-24] MEDS: CETIRIZINE 10 MG TABLET PO SCH (21:09)
[2022-04-25] MEDS: PIPERACILLIN/TAZOBACTAM 3,375 MG in SODIUM CHLORIDE 0.9% 100 ML IV SCH (02:47)
[2022-04-25] MEDS: INSULIN LISPRO 100 UNIT/ML SUBCUT SCH ×2 (07:20→13:37)
[2022-04-25] MEDS: PANTOPRAZOLE 40 MG TABLET PO SCH (08:02)
[2022-04-25] MEDS: AMIODARONE 200 MG TABLET PO SCH (08:02)
[2022-04-25] MEDS: METOPROLOL TARTRATE 25 MG TABLET PO SCH (08:02)
[2022-04-25 08:53] VITALS: BP 121/87
[2022-04-25] MEDS: LACTULOSE 20 GM/30 ML UDCUP PO SCH (09:14)
[2022-04-25 10:45] LABS: Calcium 8.1 MG/DL (8.5-10.1); Osmolality,Calculated 278.5 MOS/KG (273-304); Potassium 4.3 MMOL/L (3.5-5.1)
[2022-04-25] MEDS: amLODIPine 10 MG TABLET PO SCH (11:14)
[2022-04-25] MEDS ORDERED: VANCOMYCIN INJ 500 MG in SODIUM CHLORIDE 0.9% 100 ML IV ONE (17:00)
== END 2022-04-25 17:20 | DRG 579 ==
LOC: N.ED 16:07 → SUATTDRO 19:16 → N.5E 19:16
PROVIDERS: ADMIT Internal Medicine; ATTEND Internal Medicine Geriatric Medicine
PROC: VAVDCFI (2022-04-22 07:05)

== ENCOUNTER 2022-06-12 19:42 | Inpatient (IN) ==
[2022-06-12] MEDS ORDERED: MORPHINE 2 MG/1 ML SYRINGE IV STA (20:56)
[2022-06-12] MEDS ORDERED: ONDANSETRON 4 MG/2 ML VIAL IV STA (20:56)
[2022-06-12 21:34] LABS: Basophils % 0.3 % (0.0-0.8); Eosinophils # 0.3 10*3/uL (0.0-0.87); Eosinophils % 1.9 % (0.00-10.9); Hematocrit 33.8 VOL% (35.7-47.0); Hemoglobin 9.9 GM/DL (12.0-16.0); Immature Granulocytes % 0.4 %; Immature Granulocytes Absolute 0.06 #; Lymphocytes # 1.8 10*3/uL (1.4-4.0); Lymphocytes % 13.4 % (21.3-54.2); Mean Corpuscular HGB Conc 29.3 GM/DL (32-36); Mean Corpuscular Volume 82.4 FL (87-102); Mean Platelet Volume 9.4 FL (9.6-12.0); Monocytes # 1.1 10*3/uL (0.11-0.8); Monocytes % 8.4 % (1.7-12.7); Neutrophils % 75.6 % (38.7-73.9); Platelet Count 242 T/CUMM (130-400); Red Cell Distribution Width 20.9 % (9.3-17.3); White Blood Count 13.5 T/CUMM (4-12)
[2022-06-12 21:41] LABS: Alanine Aminotransferase 15 U/L (13-56); Albumin 2.7 G/DL (3.4-5.0); Alkaline Phosphatase 125 U/L (45-117); Aspartate Amino Transferase 17 U/L (0-37); Bilirubin,Total < 0.39 MG/DL (0.20-1.00); Blood Urea Nitrogen 36 MG/DL (7-18); Calcium 7.4 MG/DL (8.5-10.1); Carbon Dioxide 29 MMOL/L (21-32); Chloride 104 MMOL/L (98-107); Glucose 85 MG/DL (74-106); Osmolality,Calculated 285.4 MOS/KG (273-304); Potassium 3.7 MMOL/L (3.5-5.1); Sodium 140 MMOL/L (136-145); Total Protein 6.7 G/DL (6.4-8.2)
[2022-06-12] MEDS ORDERED: VANCOMYCIN INJ 1,000 MG in SODIUM CHLORIDE 0.9% 250 ML IV STA (21:59)
[2022-06-12] MEDS ORDERED: hydrALAZINE 20 MG/1 ML VIAL IV PRN (23:25)
[2022-06-12] MEDS ORDERED: ONDANSETRON 4 MG/2 ML VIAL IV PRN (23:25)
[2022-06-12] MEDS ORDERED: VANCOMYCIN INJ 750 MG in SODIUM CHLORIDE 0.9% 250 ML IV PRN (23:57)
[2022-06-12] MEDS ORDERED: SODIUM CHLORIDE 0.9% 1,000 ML IV SCH (23:59)
[2022-06-13] MEDS ORDERED: MORPHINE 2 MG/1 ML SYRINGE IV STA (00:10)
[2022-06-13] MEDS ORDERED: ALBUTEROL 2.5 MG/3 ML NEB RESP TX STA (00:50)
[2022-06-13] MEDS ORDERED: ALBUTEROL/IPRATROPIUM 3 ML NEB RESP TX STA (00:50)
[2022-06-13] MEDS ORDERED: NITROGLYCERIN DRIP 50 MG/250 ML BOTTLE IV ONE (01:00)
[2022-06-13] MEDS ORDERED: VANCOMYCIN INJ 2,500 MG in SODIUM CHLORIDE 0.9% 500 ML IV ONE (01:00)
[2022-06-13] MEDS ORDERED: NITROGLYCERIN DRIP 50 MG/250 ML BOTTLE IV SCH (01:15)
[2022-06-13] MEDS ORDERED: PIPERACILLIN/TAZOBACTAM 3,375 MG in SODIUM CHLORIDE 0.9% 100 ML IV SCH (03:00)
[2022-06-13] MEDS: SEVELAMER CARBONATE 800 MG TABLET PO SCH ×3 (09:00→17:18)
[2022-06-13] MEDS: LACTULOSE 20 GM/30 ML UDCUP PO SCH ×2 (09:00→20:15)
[2022-06-13] MEDS: levETIRAcetam 500 MG TABLET PO SCH ×2 (09:00→20:15)
[2022-06-13] MEDS: PANTOPRAZOLE 40 MG TABLET PO SCH (09:01)
[2022-06-13] MEDS: FERROUS SULFATE 325 MG TABLET PO SCH ×2 (09:01→20:15)
[2022-06-13] MEDS: amLODIPine 10 MG TABLET PO SCH (09:01)
[2022-06-13] MEDS: APIXABAN 2.5 MG TABLET PO SCH ×2 (09:01→20:15)
[2022-06-13] MEDS: METOPROLOL TARTRATE 25 MG TABLET PO SCH (09:01)
[2022-06-13] MEDS: AMIODARONE 200 MG TABLET PO SCH (09:01)
[2022-06-13] MEDS ORDERED: VANCOMYCIN INJ 750 MG in SODIUM CHLORIDE 0.9% 250 ML IV ONE (17:00)
[2022-06-13] MEDS: ALBUTEROL 2.5 MG/3 ML NEB RESP TX PRN (17:20)
[2022-06-13] MEDS: ALBUTEROL/IPRATROPIUM 3 ML NEB RESP TX PRN ×2 (17:20→22:52)
[2022-06-13] MEDS: PIPERACILLIN/TAZOBACTAM 3,375 MG in SODIUM CHLORIDE 0.9% 100 ML IV SCH (18:42)
[2022-06-13] MEDS ORDERED: ENOXAPARIN 30 MG/0.3 ML SYRINGE SUBCUT SCH (21:00)
[2022-06-13] MEDS: CETIRIZINE 10 MG TABLET PO SCH (21:20)
[2022-06-14] MEDS: ALBUTEROL/IPRATROPIUM 3 ML NEB RESP TX PRN ×2 (04:13→11:55)
[2022-06-14] MEDS: MORPHINE 2 MG/1 ML SYRINGE IV PRN ×2 (04:35→12:26)
[2022-06-14] MEDS: PIPERACILLIN/TAZOBACTAM 3,375 MG in SODIUM CHLORIDE 0.9% 100 ML IV SCH ×2 (05:00→17:12)
[2022-06-14] MEDS: SEVELAMER CARBONATE 800 MG TABLET PO SCH ×3 (08:40→17:10)
[2022-06-14] MEDS: HEPARIN 5,000 UNIT/1 ML VIAL IV PRN ×4 (09:00→15:19)
[2022-06-14] MEDS: PANTOPRAZOLE 40 MG TABLET PO SCH (09:12)
[2022-06-14] MEDS: amLODIPine 10 MG TABLET PO SCH (09:12)
[2022-06-14] MEDS: METOPROLOL TARTRATE 25 MG TABLET PO SCH (09:12)
[2022-06-14] MEDS: FERROUS SULFATE 325 MG TABLET PO SCH ×2 (09:12→20:52)
[2022-06-14] MEDS: levETIRAcetam 500 MG TABLET PO SCH ×2 (09:13→20:52)
[2022-06-14] MEDS: APIXABAN 2.5 MG TABLET PO SCH ×2 (09:13→20:52)
[2022-06-14] MEDS: AMIODARONE 200 MG TABLET PO SCH (09:13)
[2022-06-14] MEDS: LACTULOSE 20 GM/30 ML UDCUP PO SCH ×2 (09:13→20:51)
[2022-06-14] MEDS: hydrALAZINE 20 MG/1 ML VIAL IV PRN ×3 (12:15→21:59)
[2022-06-14] MEDS: ALBUTEROL 2.5 MG/3 ML NEB RESP TX PRN (14:40)
[2022-06-14] MEDS ORDERED: LORazepam 2 MG/1 ML VIAL IV ONE (15:06)
[2022-06-14] MEDS: CETIRIZINE 10 MG TABLET PO SCH (20:52)
[2022-06-15] MEDS: ALBUTEROL/IPRATROPIUM 3 ML NEB RESP TX PRN ×4 (01:37→18:20)
[2022-06-15 04:37] LABS: Basophils % 0.2 % (0.0-0.8); Eosinophils # 0.3 10*3/uL (0.0-0.87); Eosinophils % 2.9 % (0.00-10.9); Hematocrit 29.2 VOL% (35.7-47.0); Hemoglobin 8.8 GM/DL (12.0-16.0); Immature Granulocytes % 0.5 %; Immature Granulocytes Absolute 0.05 #; Lymphocytes # 1.8 10*3/uL (1.4-4.0); Lymphocytes % 16.8 % (21.3-54.2); Mean Corpuscular HGB Conc 30.1 GM/DL (32-36); Mean Corpuscular Volume 80.7 FL (87-102); Monocytes # 0.9 10*3/uL (0.11-0.8); Monocytes % 8.3 % (1.7-12.7); Neutrophils % 71.3 % (38.7-73.9); Platelet Count 171 T/CUMM (130-400); Red Blood Count 3.62 MC/CUMM (3.8-5.5); Red Cell Distribution Width 19.3 % (9.3-17.3); White Blood Count 10.5 T/CUMM (4-12)
[2022-06-15 04:48] LABS: Calcium 7.8 MG/DL (8.5-10.1); Osmolality,Calculated 288.3 MOS/KG (273-304)
[2022-06-15] MEDS: PIPERACILLIN/TAZOBACTAM 3,375 MG in SODIUM CHLORIDE 0.9% 100 ML IV SCH ×2 (05:29→17:32)
[2022-06-15] MEDS: HEPARIN 5,000 UNIT/1 ML VIAL IV PRN (09:14)
[2022-06-15] MEDS: METOPROLOL TARTRATE 25 MG TABLET PO SCH (09:35)
[2022-06-15] MEDS: APIXABAN 2.5 MG TABLET PO SCH ×2 (09:35→20:19)
[2022-06-15] MEDS: AMIODARONE 200 MG TABLET PO SCH (09:35)
[2022-06-15] MEDS: FERROUS SULFATE 325 MG TABLET PO SCH ×2 (09:35→20:19)
[2022-06-15] MEDS: amLODIPine 10 MG TABLET PO SCH (09:35)
[2022-06-15] MEDS: levETIRAcetam 500 MG TABLET PO SCH ×2 (09:35→20:19)
[2022-06-15] MEDS: SEVELAMER CARBONATE 800 MG TABLET PO SCH ×3 (09:35→17:32)
[2022-06-15] MEDS: PANTOPRAZOLE 40 MG TABLET PO SCH (09:35)
[2022-06-15] MEDS: LACTULOSE 20 GM/30 ML UDCUP PO SCH ×2 (09:38→20:20)
[2022-06-15] MEDS: CETIRIZINE 10 MG TABLET PO SCH (20:19)
[2022-06-16] MEDS: ALBUTEROL/IPRATROPIUM 3 ML NEB RESP TX PRN ×4 (01:40→20:35)
[2022-06-16 03:54] LABS: Basophils % 0.3 % (0.0-0.8); Eosinophils # 0.3 10*3/uL (0.0-0.87); Eosinophils % 3.3 % (0.00-10.9); Hematocrit 26.8 VOL% (35.7-47.0); Hemoglobin 8.2 GM/DL (12.0-16.0); Immature Granulocytes % 0.3 %; Immature Granulocytes Absolute 0.03 #; Lymphocytes % 20.1 % (21.3-54.2); Mean Corpuscular HGB Conc 30.6 GM/DL (32-36); Mean Platelet Volume 9.6 FL (9.6-12.0); Monocytes # 0.8 10*3/uL (0.11-0.8); Monocytes % 7.9 % (1.7-12.7); Neutrophils % 68.1 % (38.7-73.9); Platelet Count 181 T/CUMM (130-400); Red Blood Count 3.35 MC/CUMM (3.8-5.5); White Blood Count 9.7 T/CUMM (4-12)
[2022-06-16 04:08] LABS: Calcium 7.2 MG/DL (8.5-10.1); Osmolality,Calculated 292.3 MOS/KG (273-304); Potassium 3.7 MMOL/L (3.5-5.1)
[2022-06-16] MEDS: PIPERACILLIN/TAZOBACTAM 3,375 MG in SODIUM CHLORIDE 0.9% 100 ML IV SCH ×2 (06:13→17:00)
[2022-06-16] MEDS: FERROUS SULFATE 325 MG TABLET PO SCH ×2 (08:38→20:43)
[2022-06-16] MEDS: levETIRAcetam 500 MG TABLET PO SCH ×2 (08:38→20:43)
[2022-06-16] MEDS: SEVELAMER CARBONATE 800 MG TABLET PO SCH ×3 (08:38→16:19)
[2022-06-16] MEDS: AMIODARONE 200 MG TABLET PO SCH (08:39)
[2022-06-16] MEDS: PANTOPRAZOLE 40 MG TABLET PO SCH (08:39)
[2022-06-16] MEDS: METOPROLOL TARTRATE 25 MG TABLET PO SCH (08:39)
[2022-06-16] MEDS: APIXABAN 2.5 MG TABLET PO SCH ×2 (08:39→20:43)
[2022-06-16] MEDS: amLODIPine 10 MG TABLET PO SCH (08:39)
[2022-06-16] MEDS: LACTULOSE 20 GM/30 ML UDCUP PO SCH ×2 (08:40→20:44)
[2022-06-16] MEDS: LORazepam 2 MG/1 ML VIAL IV PRN ×2 (08:43→16:18)
[2022-06-16] MEDS ORDERED: hydrALAZINE 25 MG TABLET PO SCH (10:00)
[2022-06-16] MEDS: HEPARIN 5,000 UNIT/1 ML VIAL IV PRN (10:20)
[2022-06-16] MEDS: HEPARIN 10,000 UNIT/10 ML VIAL IV SCH ×2 (14:16→16:18)
[2022-06-16] MEDS: hydrALAZINE 20 MG/1 ML VIAL IV PRN (14:16)
[2022-06-16] MEDS: CETIRIZINE 10 MG TABLET PO SCH (20:43)
[2022-06-17] MEDS: ALBUTEROL/IPRATROPIUM 3 ML NEB RESP TX PRN ×3 (02:49→18:00)
[2022-06-17 03:48] LABS: Basophils % 0.5 % (0.0-0.8); Eosinophils # 0.3 10*3/uL (0.0-0.87); Eosinophils % 3.6 % (0.00-10.9); Hemoglobin 8.6 GM/DL (12.0-16.0); Immature Granulocytes % 0.2 %; Immature Granulocytes Absolute 0.02 #; Lymphocytes # 1.8 10*3/uL (1.4-4.0); Lymphocytes % 21.1 % (21.3-54.2); Mean Corpuscular HGB Conc 30.7 GM/DL (32-36); Mean Corpuscular Volume 78.9 FL (87-102); Mean Platelet Volume 9.4 FL (9.6-12.0); Monocytes # 0.8 10*3/uL (0.11-0.8); Monocytes % 8.8 % (1.7-12.7); Neutrophils % 65.8 % (38.7-73.9); Platelet Count 190 T/CUMM (130-400); Red Blood Count 3.55 MC/CUMM (3.8-5.5); Red Cell Distribution Width 18.9 % (9.3-17.3); White Blood Count 8.6 T/CUMM (4-12)
[2022-06-17 04:02] LABS: Osmolality,Calculated 274.8 MOS/KG (273-304); Potassium 3.9 MMOL/L (3.5-5.1)
[2022-06-17] MEDS: PIPERACILLIN/TAZOBACTAM 3,375 MG in SODIUM CHLORIDE 0.9% 100 ML IV SCH ×2 (05:54→21:11)
[2022-06-17] MEDS: LACTULOSE 20 GM/30 ML UDCUP PO SCH ×2 (09:04→20:51)
[2022-06-17] MEDS: SEVELAMER CARBONATE 800 MG TABLET PO SCH ×3 (09:04→21:11)
[2022-06-17] MEDS: AMIODARONE 200 MG TABLET PO SCH (09:05)
[2022-06-17] MEDS: PANTOPRAZOLE 40 MG TABLET PO SCH (09:05)
[2022-06-17] MEDS: APIXABAN 2.5 MG TABLET PO SCH ×2 (09:05→20:51)
[2022-06-17] MEDS: METOPROLOL TARTRATE 25 MG TABLET PO SCH (09:05)
[2022-06-17] MEDS: FERROUS SULFATE 325 MG TABLET PO SCH ×2 (09:05→20:51)
[2022-06-17] MEDS: levETIRAcetam 500 MG TABLET PO SCH ×2 (09:05→23:24)
[2022-06-17] MEDS: amLODIPine 10 MG TABLET PO SCH (09:05)
[2022-06-17] MEDS: cloNIDine 0.1 MG TABLET PO SCH ×2 (09:09→20:51)
[2022-06-17] MEDS: HEPARIN 5,000 UNIT/1 ML VIAL IV PRN ×3 (09:54→23:25)
[2022-06-17] MEDS: LORazepam 2 MG/1 ML VIAL IV PRN (14:44)
[2022-06-17] MEDS: CETIRIZINE 10 MG TABLET PO SCH (20:51)
[2022-06-17] MEDS: MORPHINE 2 MG/1 ML SYRINGE IV PRN (20:52)
[2022-06-18] MEDS: LORazepam 2 MG/1 ML VIAL IV PRN (00:34)
[2022-06-18] MEDS: ALBUTEROL/IPRATROPIUM 3 ML NEB RESP TX PRN ×3 (00:34→17:38)
[2022-06-18] MEDS: PIPERACILLIN/TAZOBACTAM 3,375 MG in SODIUM CHLORIDE 0.9% 100 ML IV SCH ×2 (06:10→17:08)
[2022-06-18] MEDS: amLODIPine 10 MG TABLET PO SCH (09:06)
[2022-06-18] MEDS: APIXABAN 2.5 MG TABLET PO SCH ×2 (09:06→21:03)
[2022-06-18] MEDS: SEVELAMER CARBONATE 800 MG TABLET PO SCH ×3 (09:06→16:49)
[2022-06-18] MEDS: PANTOPRAZOLE 40 MG TABLET PO SCH (09:06)
[2022-06-18] MEDS: levETIRAcetam 500 MG TABLET PO SCH ×2 (09:06→21:03)
[2022-06-18] MEDS: METOPROLOL TARTRATE 25 MG TABLET PO SCH (09:06)
[2022-06-18] MEDS: FERROUS SULFATE 325 MG TABLET PO SCH ×2 (09:06→21:03)
[2022-06-18] MEDS: AMIODARONE 200 MG TABLET PO SCH (09:06)
[2022-06-18] MEDS: cloNIDine 0.1 MG TABLET PO SCH ×2 (09:06→21:03)
[2022-06-18] MEDS: LACTULOSE 20 GM/30 ML UDCUP PO SCH ×2 (09:09→21:02)
[2022-06-18] MEDS: MORPHINE 2 MG/1 ML SYRINGE IV PRN (13:35)
[2022-06-18] MEDS: HEPARIN 10,000 UNIT/10 ML VIAL IV SCH (21:02)
[2022-06-18] MEDS: cephALEXin 500 MG CAPSULE PO SCH (21:03)
[2022-06-18] MEDS: CETIRIZINE 10 MG TABLET PO SCH (21:03)
[2022-06-19] MEDS: ALBUTEROL/IPRATROPIUM 3 ML NEB RESP TX PRN ×2 (02:19→06:00)
[2022-06-19] MEDS: FLUTICASONE 50 MCG NASAL SPRAY 16 GM BOTTLE BOTH NARES SCH (09:30)
[2022-06-19] MEDS: LACTULOSE 20 GM/30 ML UDCUP PO SCH ×2 (09:31→21:12)
[2022-06-19] MEDS: METOPROLOL TARTRATE 25 MG TABLET PO SCH (09:32)
[2022-06-19] MEDS: APIXABAN 2.5 MG TABLET PO SCH ×2 (09:32→21:12)
[2022-06-19] MEDS: AMIODARONE 200 MG TABLET PO SCH (09:32)
[2022-06-19] MEDS: SEVELAMER CARBONATE 800 MG TABLET PO SCH ×3 (09:32→18:12)
[2022-06-19] MEDS: cloNIDine 0.1 MG TABLET PO SCH ×2 (09:32→21:12)
[2022-06-19] MEDS: amLODIPine 10 MG TABLET PO SCH (09:32)
[2022-06-19] MEDS: PANTOPRAZOLE 40 MG TABLET PO SCH (09:35)
[2022-06-19] MEDS: cephALEXin 500 MG CAPSULE PO SCH ×2 (09:35→21:12)
[2022-06-19] MEDS: FERROUS SULFATE 325 MG TABLET PO SCH ×2 (09:35→21:12)
[2022-06-19] MEDS: levETIRAcetam 500 MG TABLET PO SCH ×2 (09:35→21:12)
[2022-06-19] MEDS ORDERED: ALBUTEROL 1.25 MG/3 ML NEB RESP TX ONE (12:18)
[2022-06-19] MEDS: ALBUTEROL/IPRATROPIUM 3 ML NEB RESP TX SCH ×2 (13:33→19:32)
[2022-06-19] MEDS ORDERED: EPOETIN ALFA-EPBX 4,000 UNIT/ML VIAL IV PRN (14:09)
[2022-06-19] MEDS: CETIRIZINE 10 MG TABLET PO SCH (21:12)
[2022-06-20] MEDS: ALBUTEROL/IPRATROPIUM 3 ML NEB RESP TX SCH ×4 (01:16→19:21)
[2022-06-20] MEDS: amLODIPine 10 MG TABLET PO SCH (08:00)
[2022-06-20] MEDS: cloNIDine 0.1 MG TABLET PO SCH ×2 (08:00→21:54)
[2022-06-20] MEDS: levETIRAcetam 500 MG TABLET PO SCH ×2 (08:37→21:54)
[2022-06-20] MEDS: APIXABAN 2.5 MG TABLET PO SCH ×2 (08:37→21:54)
[2022-06-20] MEDS: AMIODARONE 200 MG TABLET PO SCH (08:37)
[2022-06-20] MEDS: SEVELAMER CARBONATE 800 MG TABLET PO SCH ×3 (08:37→16:35)
[2022-06-20] MEDS: PANTOPRAZOLE 40 MG TABLET PO SCH (08:37)
[2022-06-20] MEDS: cephALEXin 500 MG CAPSULE PO SCH ×2 (08:37→21:54)
[2022-06-20] MEDS: FERROUS SULFATE 325 MG TABLET PO SCH ×2 (08:37→21:54)
[2022-06-20] MEDS: FLUTICASONE 50 MCG NASAL SPRAY 16 GM BOTTLE BOTH NARES SCH (08:39)
[2022-06-20] MEDS: LACTULOSE 20 GM/30 ML UDCUP PO SCH ×2 (08:39→21:54)
[2022-06-20] MEDS: METOPROLOL TARTRATE 25 MG TABLET PO SCH (09:00)
[2022-06-20] MEDS: CETIRIZINE 10 MG TABLET PO SCH (21:54)
[2022-06-21] MEDS: ALBUTEROL/IPRATROPIUM 3 ML NEB RESP TX SCH ×4 (00:43→19:27)
[2022-06-21] MEDS: amLODIPine 10 MG TABLET PO SCH (10:39)
[2022-06-21] MEDS: levETIRAcetam 500 MG TABLET PO SCH ×2 (10:39→20:27)
[2022-06-21] MEDS: APIXABAN 2.5 MG TABLET PO SCH ×2 (10:40→20:27)
[2022-06-21] MEDS: AMIODARONE 200 MG TABLET PO SCH (10:40)
[2022-06-21] MEDS: FERROUS SULFATE 325 MG TABLET PO SCH ×2 (10:40→20:27)
[2022-06-21] MEDS: METOPROLOL TARTRATE 25 MG TABLET PO SCH (10:40)
[2022-06-21] MEDS: cephALEXin 500 MG CAPSULE PO SCH ×2 (10:40→20:27)
[2022-06-21] MEDS: PANTOPRAZOLE 40 MG TABLET PO SCH (10:40)
[2022-06-21] MEDS: LACTULOSE 20 GM/30 ML UDCUP PO SCH ×2 (10:41→20:27)
[2022-06-21] MEDS: FUROSEMIDE 40 MG TABLET PO SCH (10:41)
[2022-06-21] MEDS: FLUTICASONE 50 MCG NASAL SPRAY 16 GM BOTTLE BOTH NARES SCH (10:42)
[2022-06-21] MEDS: cloNIDine 0.1 MG TABLET PO SCH ×2 (10:42→20:27)
[2022-06-21] MEDS: SEVELAMER CARBONATE 800 MG TABLET PO SCH ×3 (10:42→18:40)
[2022-06-21] MEDS: CETIRIZINE 10 MG TABLET PO SCH (20:27)
[2022-06-22] MEDS: ALBUTEROL/IPRATROPIUM 3 ML NEB RESP TX SCH ×2 (00:37→07:40)
[2022-06-22] MEDS: ALBUTEROL 2.5 MG/3 ML NEB RESP TX PRN (05:50)
[2022-06-22] MEDS: levETIRAcetam 500 MG TABLET PO SCH (09:43)
[2022-06-22] MEDS: FUROSEMIDE 40 MG TABLET PO SCH (09:43)
[2022-06-22] MEDS: AMIODARONE 200 MG TABLET PO SCH (09:43)
[2022-06-22] MEDS: APIXABAN 2.5 MG TABLET PO SCH (09:43)
[2022-06-22] MEDS: FERROUS SULFATE 325 MG TABLET PO SCH (09:43)
[2022-06-22] MEDS: SEVELAMER CARBONATE 800 MG TABLET PO SCH (09:43)
[2022-06-22] MEDS: cloNIDine 0.1 MG TABLET PO SCH (09:43)
[2022-06-22] MEDS: FLUTICASONE 50 MCG NASAL SPRAY 16 GM BOTTLE BOTH NARES SCH (09:43)
[2022-06-22] MEDS: cephALEXin 500 MG CAPSULE PO SCH (09:43)
[2022-06-22] MEDS: LACTULOSE 20 GM/30 ML UDCUP PO SCH (09:43)
[2022-06-22] MEDS: amLODIPine 10 MG TABLET PO SCH (09:44)
[2022-06-22] MEDS: METOPROLOL TARTRATE 25 MG TABLET PO SCH (09:44)
[2022-06-22] MEDS: PANTOPRAZOLE 40 MG TABLET PO SCH (09:44)
[2022-06-22 09:57] VITALS: BP 123/74
== END 2022-06-22 12:23 | DRG 602 ==
LOC: EDSEX → N.ED 19:42 → SUATTDRO 23:18 → N.EDINP 23:18 → N.CC 06-13 02:14 → N.TELEN 06-17 16:09
PROVIDERS: ADMIT Family Medicine; ATTEND Hospitalist

== ENCOUNTER 2022-08-03 15:42 | Inpatient (IN) ==
[2022-08-03] MEDS ORDERED: MORPHINE 2 MG/1 ML SYRINGE IV STA (16:52)
[2022-08-03] MEDS ORDERED: ONDANSETRON 4 MG/2 ML VIAL IV STA (16:52)
[2022-08-03 16:56] LABS: Basophils # 0.1 10*3/uL (0.0-0.2); Basophils % 0.8 % (0.0-0.8); Eosinophils # 0.3 10*3/uL (0.0-0.87); Eosinophils % 5.4 % (0.00-10.9); Hematocrit 37.8 VOL% (35.7-47.0); Hemoglobin 11.5 GM/DL (12.0-16.0); Immature Granulocytes % 0.2 %; Immature Granulocytes Absolute 0.01 #; Lymphocytes # 1.9 10*3/uL (1.4-4.0); Lymphocytes % 32.9 % (21.3-54.2); Mean Corpuscular HGB Conc 30.4 GM/DL (32-36); Mean Corpuscular Volume 74.6 FL (87-102); Monocytes # 0.5 10*3/uL (0.11-0.8); Monocytes % 7.8 % (1.7-12.7); NRBC # 0.02 10*3/uL; Neutrophils % 52.9 % (38.7-73.9); Platelet Count 203 T/CUMM (130-400); Red Blood Count 5.07 MC/CUMM (3.8-5.5); Red Cell Distribution Width 21.8 % (9.3-17.3); White Blood Count 5.89 T/CUMM (4-12)
[2022-08-03 17:17] LABS: Alanine Aminotransferase 9 U/L (13-56); Albumin 2.7 G/DL (3.4-5.0); Alkaline Phosphatase 103 U/L (45-117); Aspartate Amino Transferase 16 U/L (0-37); Bilirubin,Total < 0.39 MG/DL (0.20-1.00); Blood Urea Nitrogen 27 MG/DL (7-18); Calcium 7.9 MG/DL (8.5-10.1); Carbon Dioxide 31 MMOL/L (21-32); Chloride 103 MMOL/L (98-107); Glucose 102 MG/DL (74-106); Osmolality,Calculated 281.5 MOS/KG (273-304); Potassium 3.5 MMOL/L (3.5-5.1); Sodium 139 MMOL/L (136-145); Total Protein 6.6 G/DL (6.4-8.2)
[2022-08-03 17:36] LABS: Schistocytes Slight
[2022-08-03 17:37] LABS: Burr Cells Slight; Elliptocytes Few
[2022-08-03 17:38] LABS: Ovalocytes Slight; Platelet Estimate Normal; Tear Drop Cells Slight
[2022-08-03 17:39] LABS: Hypochromia Slight; Microcytosis Slight
[2022-08-03] MEDS ORDERED: ONDANSETRON 4 MG/2 ML VIAL IV PRN (17:41)
[2022-08-03] MEDS ORDERED: DOCUSATE SODIUM 100 MG CAPSULE PO PRN (17:41)
[2022-08-03] MEDS ORDERED: hydrALAZINE 20 MG/1 ML VIAL IV PRN (17:41)
[2022-08-03] MEDS ORDERED: ALBUTEROL/IPRATROPIUM 3 ML NEB RESP TX PRN (17:46)
[2022-08-03] MEDS ORDERED: SEVELAMER CARBONATE 800 MG TABLET PO SCH (18:00)
[2022-08-03] MEDS ORDERED: NON-FORMULARY MEDICATION (Omeprazole 20 mg Capsule,Delayed Release(Dr/Ec)) PO SCH (21:00)
[2022-08-03] MEDS: CETIRIZINE 10 MG TABLET PO SCH (21:18)
[2022-08-03] MEDS: levETIRAcetam 500 MG TABLET PO SCH (21:18)
[2022-08-03] MEDS: cloNIDine 0.1 MG TABLET PO SCH (21:18)
[2022-08-03] MEDS: FERROUS SULFATE 325 MG TABLET PO SCH (21:19)
[2022-08-03] MEDS: POLYVINYL 0.5%/POVIDONE 0.6% OPH SOLN 15 ML BOTTLE BOTH EYES SCH (21:19)
[2022-08-03] MEDS: LACTULOSE 20 GM/30 ML UDCUP PO SCH (21:24)
[2022-08-04] MEDS: HEPARIN DRIP 25,000 UNITS/500 ML PREMIX IV SCH ×3 (02:15→23:51)
[2022-08-04] MEDS: ACETAMINOPHEN 325 MG TABLET PO PRN ×2 (02:25→20:58)
[2022-08-04 05:41] LABS: Basophils # 0.1 10*3/uL (0.0-0.2); Basophils % 0.7 % (0.0-0.8); Eosinophils # 0.4 10*3/uL (0.0-0.87); Eosinophils % 5.6 % (0.00-10.9); Hematocrit 36.4 VOL% (35.7-47.0); Hemoglobin 11.1 GM/DL (12.0-16.0); Immature Granulocytes % 0.3 %; Immature Granulocytes Absolute 0.02 #; Lymphocytes # 2.8 10*3/uL (1.4-4.0); Lymphocytes % 39.3 % (21.3-54.2); Mean Corpuscular HGB Conc 30.5 GM/DL (32-36); Mean Corpuscular Volume 75.5 FL (87-102); Monocytes # 0.5 10*3/uL (0.11-0.8); Monocytes % 7.7 % (1.7-12.7); Neutrophils % 46.4 % (38.7-73.9); Platelet Count 177 T/CUMM (130-400); Red Blood Count 4.82 MC/CUMM (3.8-5.5); Red Cell Distribution Width 21.5 % (9.3-17.3)
[2022-08-04 05:56] LABS: Calcium 7.7 MG/DL (8.5-10.1); Osmolality,Calculated 286.3 MOS/KG (273-304); Potassium 3.5 MMOL/L (3.5-5.1)
[2022-08-04] MEDS ORDERED: MORPHINE 2 MG/1 ML SYRINGE IM ONE (06:04)
[2022-08-04] MEDS ORDERED: MORPHINE 2 MG/1 ML SYRINGE IV ONE (06:26)
[2022-08-04] MEDS: cloNIDine 0.1 MG TABLET PO SCH ×2 (09:00→20:51)
[2022-08-04] MEDS ORDERED: AMIODARONE 200 MG TABLET PO SCH (09:00)
[2022-08-04] MEDS: amLODIPine 10 MG TABLET PO SCH (09:00)
[2022-08-04] MEDS ORDERED: METOPROLOL TARTRATE 25 MG TABLET PO SCH (09:00)
[2022-08-04] MEDS ORDERED: EPOETIN ALFA-EPBX 4,000 UNIT/ML VIAL IV PRN (09:00)
[2022-08-04] MEDS: SEVELAMER CARBONATE 800 MG TABLET PO SCH ×3 (09:36→16:57)
[2022-08-04] MEDS: FERROUS SULFATE 325 MG TABLET PO SCH ×2 (09:36→20:51)
[2022-08-04] MEDS: PANTOPRAZOLE 40 MG TABLET PO SCH (09:36)
[2022-08-04] MEDS: levETIRAcetam 500 MG TABLET PO SCH ×2 (09:36→20:51)
[2022-08-04] MEDS: LACTULOSE 20 GM/30 ML UDCUP PO SCH ×3 (09:36→20:52)
[2022-08-04] MEDS: POLYVINYL 0.5%/POVIDONE 0.6% OPH SOLN 15 ML BOTTLE BOTH EYES SCH ×3 (09:43→20:52)
[2022-08-04] MEDS: CETIRIZINE 10 MG TABLET PO SCH (20:52)
[2022-08-05 04:09] LABS: Basophils # 0.1 10*3/uL (0.0-0.2); Basophils % 0.8 % (0.0-0.8); Eosinophils # 0.5 10*3/uL (0.0-0.87); Eosinophils % 6.2 % (0.00-10.9); Hematocrit 37.2 VOL% (35.7-47.0); Hemoglobin 11.1 GM/DL (12.0-16.0); Immature Granulocytes % 0.1 %; Immature Granulocytes Absolute 0.01 #; Lymphocytes # 2.9 10*3/uL (1.4-4.0); Lymphocytes % 39.5 % (21.3-54.2); Mean Corpuscular HGB Conc 29.8 GM/DL (32-36); Mean Corpuscular Volume 76.5 FL (87-102); Monocytes # 0.6 10*3/uL (0.11-0.8); Monocytes % 8.2 % (1.7-12.7); Neutrophils % 45.2 % (38.7-73.9); Platelet Count 149 T/CUMM (130-400); Red Blood Count 4.86 MC/CUMM (3.8-5.5); Red Cell Distribution Width 21.4 % (9.3-17.3); White Blood Count 7.41 T/CUMM (4-12)
[2022-08-05 04:27] LABS: Calcium 7.8 MG/DL (8.5-10.1); Potassium 3.9 MMOL/L (3.5-5.1)
[2022-08-05 04:34] LABS: Hypochromia 1+; Microcytosis 1+; Ovalocytes Few; Target Cells Slight
[2022-08-05 04:35] LABS: Polychromasia Slight
[2022-08-05 04:36] LABS: Acanthocytes Few; Platelet Estimate Adequate
[2022-08-05] MEDS: SEVELAMER CARBONATE 800 MG TABLET PO SCH ×3 (08:01→17:05)
[2022-08-05] MEDS: amLODIPine 10 MG TABLET PO SCH (09:30)
[2022-08-05] MEDS: cloNIDine 0.1 MG TABLET PO SCH ×2 (09:30→20:37)
[2022-08-05] MEDS: PANTOPRAZOLE 40 MG TABLET PO SCH (09:30)
[2022-08-05] MEDS: LACTULOSE 20 GM/30 ML UDCUP PO SCH ×2 (09:30→20:39)
[2022-08-05] MEDS: FERROUS SULFATE 325 MG TABLET PO SCH ×2 (09:30→20:37)
[2022-08-05] MEDS: levETIRAcetam 500 MG TABLET PO SCH ×2 (09:30→20:37)
[2022-08-05] MEDS ORDERED: LIDOCAINE 2% 5 ML VIAL ONE (09:53)
[2022-08-05] MEDS ORDERED: fentaNYL 100 MCG/2 ML VIAL ONE (09:53)
[2022-08-05] MEDS ORDERED: propofoL 200 MG/20 ML VIAL IV ONE (09:53)
[2022-08-05] MEDS ORDERED: BUPIVACAINE MPF 0.25% 10 ML VIAL ONE (09:59)
[2022-08-05] MEDS ORDERED: TISSUE ADHESIVE 1 EACH APPLICATOR TOP ONE (10:00)
[2022-08-05] MEDS ORDERED: HEPARIN 5,000 UNIT/1 ML VIAL ONE (10:00)
[2022-08-05] MEDS ORDERED: LIDOCAINE 1%/EPI INJ 20 ML VIAL ONE (10:00)
[2022-08-05] MEDS: SODIUM CHLORIDE 0.9% 250 ML IV SCH ×2 (10:01→10:46)
[2022-08-05] MEDS ORDERED: SODIUM CHLORIDE 0.9% 250 ML IV ONE (10:34)
[2022-08-05] MEDS ORDERED: hydrALAZINE 20 MG/1 ML VIAL ONE (10:54)
[2022-08-05] MEDS ORDERED: diphenhydrAMINE 50 MG/1 ML VIAL IV PRN (11:00)
[2022-08-05] MEDS ORDERED: diphenhydrAMINE 50 MG/1 ML VIAL ONE (11:08)
[2022-08-05] MEDS: POLYVINYL 0.5%/POVIDONE 0.6% OPH SOLN 15 ML BOTTLE BOTH EYES SCH ×3 (11:49→20:38)
[2022-08-05] MEDS: ACETAMINOPHEN 325 MG TABLET PO PRN (17:06)
[2022-08-05] MEDS: HEPARIN DRIP 25,000 UNITS/500 ML PREMIX IV SCH (17:43)
[2022-08-05] MEDS: CETIRIZINE 10 MG TABLET PO SCH (20:37)
[2022-08-06] MEDS: ACETAMINOPHEN 325 MG TABLET PO PRN ×2 (02:41→07:36)
[2022-08-06 08:08] LABS: Basophils # 0.1 10*3/uL (0.0-0.2); Basophils % 0.7 % (0.0-0.8); Eosinophils # 0.5 10*3/uL (0.0-0.87); Eosinophils % 6.8 % (0.00-10.9); Hematocrit 40.8 VOL% (35.7-47.0); Immature Granulocytes % 0.4 %; Immature Granulocytes Absolute 0.03 #; Lymphocytes # 2.5 10*3/uL (1.4-4.0); Lymphocytes % 37.2 % (21.3-54.2); Mean Corpuscular HGB Conc 29.4 GM/DL (32-36); Mean Corpuscular Volume 76.7 FL (87-102); Monocytes # 0.7 10*3/uL (0.11-0.8); Monocytes % 10.3 % (1.7-12.7); Neutrophils % 44.6 % (38.7-73.9); Platelet Count 126 T/CUMM (130-400); Red Blood Count 5.32 MC/CUMM (3.8-5.5); Red Cell Distribution Width 21.9 % (9.3-17.3); White Blood Count 6.81 T/CUMM (4-12)
[2022-08-06 08:20] LABS: Calcium 8.3 MG/DL (8.5-10.1); Osmolality,Calculated 276.4 MOS/KG (273-304); Potassium 3.6 MMOL/L (3.5-5.1)
[2022-08-06 08:25] LABS: Hypochromia 1+; Microcytosis 1+; Ovalocytes Few; Polychromasia Slight
[2022-08-06 08:26] LABS: Acanthocytes Few; Platelet Estimate Adequate; Schistocytes Slight; Target Cells Slight
[2022-08-06 08:38] VITALS: BP 154/62
[2022-08-06] MEDS ORDERED: APIXABAN 2.5 MG TABLET PO SCH (09:00)
[2022-08-06] MEDS: amLODIPine 10 MG TABLET PO SCH (09:53)
[2022-08-06] MEDS: LACTULOSE 20 GM/30 ML UDCUP PO SCH ×2 (09:53→10:11)
[2022-08-06] MEDS: cloNIDine 0.1 MG TABLET PO SCH (09:53)
[2022-08-06] MEDS: POLYVINYL 0.5%/POVIDONE 0.6% OPH SOLN 15 ML BOTTLE BOTH EYES SCH (09:53)
[2022-08-06] MEDS: FERROUS SULFATE 325 MG TABLET PO SCH (09:54)
[2022-08-06] MEDS: levETIRAcetam 500 MG TABLET PO SCH (09:54)
[2022-08-06] MEDS: PANTOPRAZOLE 40 MG TABLET PO SCH (09:54)
[2022-08-06] MEDS: SEVELAMER CARBONATE 800 MG TABLET PO SCH ×2 (09:54→13:00)
== END 2022-08-06 12:50 | DRG 314 ==
LOC: N.ED 15:42 → N.EDINP 17:41 → N.2E 18:40
PROVIDERS: ADMIT Internal Medicine; ATTEND Internal Medicine